=== PATIENT | female | born 1955 | race Caucasian/White ===

== ENCOUNTER → 2016-12-29 | Outpatient (CLI) | payer OTHER ==
[~2016-12-29] MED LIST: /BUDEAQINH; ASPI81TA PO; COMBIN INH; IRON PO; ZEST5TAB PO
--- NOTE | 2016-12-30 02:32 | REP ---
Clinical: Trauma. Technique: AP, lateral, bilateral oblique, and coned-down views of the lumbosacral spine. Findings: Alignment and lordosis maintained. No acute fracture / compression injury or subluxation. Moderate to advanced multilevel degenerative disc osteophyte complexes are most pronounced at the L5-S1 and L3-L4 levels. Findings include osteophytosis, endplate sclerosis/irregularity and disc space narrowing along with hypertrophic facet changes. No evidence for spondylolysis or spondylolisthesis. Impression: Degenerative discogenic changes. No evidence for acute fracture / compression injury or subluxation. Signed by Kelton Hanson MD 12/30/2016 02:24 A
--- NOTE | 2016-12-30 02:35 | REP ---
Clinical: Trauma. Technique: AP, lateral, bilateral oblique and sunrise views right knee . Findings: The osseous structures and joint spaces are intact and age-appropriate. There is no evidence for acute fracture or dislocation. No joint effusion is appreciated. Surrounding soft tissues are unremarkable. No subcutaneous emphysema or radiodense foreign body. Impression: Normal examination. No acute fracture or dislocation. Signed by Kelton Hanson MD 12/30/2016 02:26 A
--- NOTE | 2016-12-30 08:13 | REP ---
Clinical: Trauma. Technique: Neutral and frog lateral views of the right hip. Findings: Age-related degenerative changes include increased sclerosis to the acetabular roof with subtle marginal spurring/irregularity as well as axial joint space narrowing. No acute fracture or dislocation. No periarticular calcifications. Impression: Age-related degenerative changes. No acute fracture or dislocation. Signed by Kelton Hanson MD 12/30/2016 02:35 A
== END ==
LOC: M RAD 13:24
PROVIDERS: ATTEND Family Medicine
DX: S80.01XA Contusion of right knee, initial encounter (principal); S80.11XA Contusion of right lower leg, initial encounter; V40.6XXA Car passenger injured in collision with pedestrian or animal in traffic accident, initial encounter; Y92.89 Other specified places as the place of occurrence of the external cause; Y93.9 Activity, unspecified; Y99.9 Unspecified external cause status

== ENCOUNTER → 2017-01-10 | Outpatient (CLI) | payer OTHER ==
--- NOTE | 2017-01-10 17:58 | REP ---
Clinical: Contusion. Technique: AP, lateral, bilateral oblique views of the left third digit. Findings: Osteoarthritic degenerative changes are appreciated. Small acute corner fracture at the base of the distal phalanx cannot be excluded. 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 Possible small acute corner fracture at the base of the distal phalanx. Signed by Kelton Hanson MD 01/10/2017 05:49 P
== END ==
LOC: M ADAMS 17:25
PROVIDERS: ATTEND Physician Assistant
DX: S60.032A Contusion of left middle finger without damage to nail, initial encounter (principal); X58.XXXA Exposure to other specified factors, initial encounter; Y92.89 Other specified places as the place of occurrence of the external cause; Y99.9 Unspecified external cause status; Y93.9 Activity, unspecified

== ENCOUNTER → 2017-10-27 | Outpatient (CLI) | payer OTHER ==
[~2017-10-27] MED LIST changes: +ZITHTAB PO
--- NOTE | 2017-10-27 13:26 | REP ---
Clinical: Cough . Comparison: 09/21/2016 . Technique: PA and lateral. Findings: The mediastinum and cardiac silhouette are normal. The lung mendez are clear and without acute consolidation, effusion, or pneumothorax. The skeletal structures are intact and normal. Impression: 1. No acute cardiopulmonary process. Signed by Kelton Hanson MD 10/27/2017 01:18 P
== END ==
LOC: M ADAMS 12:59
PROVIDERS: ATTEND Family Medicine
DX: R05 Cough (principal)

== ENCOUNTER → 2017-10-27 | Outpatient (REF) | payer OTHER ==
[2017-10-27 19:47] LABS: BASO # 0.1 10^3/uL (0.0-0.2); BASO % 0.9 % (0.0-1.0); EOS # 0.2 10^3/uL (0.0-0.50); EOS % 2.1 % (0.0-3.0); IMMATURE GRANULOCYTE % 0.1 % (0-0); LYMPH % 26.6 % (24.0-44.0); MEAN CORPUSCULAR HEMOGLOBIN 29.3 pg (27.0-33.0); MEAN CORPUSCULAR HGB CONC 31.8 g/dl (32.0-36.5); MEAN CORPUSCULAR VOLUME 92.2 fl (80.0-96.0); MONO # 0.6 10^3/uL (0.0-0.8); MONO % 7.9 % (0.0-5.0); NEUTROPHILS # 4.7 10^3/uL (1.8-7.7); NEUTROPHILS % 62.4 % (36.0-66.0); PLATELET COUNT, AUTOMATED 292 10^3/uL (150-450); RED CELL DISTRIBUTION WIDTH 13.2 % (11.5-14.5); WHITE BLOOD COUNT 7.6 10^3/uL (4.0-10.0)
[2017-10-27 20:15] LABS: ALBUMIN 3.7 GM/DL (3.2-5.2); ALKALINE PHOSPHATASE 101 U/L (45-117); ALT/SGPT 24 U/L (12-78); ANION GAP 4 MEQ/L (8-16); AST/SGOT 15 U/L (7-37); BILIRUBIN,TOTAL 0.4 MG/DL (0.2-1.0); BLOOD UREA NITROGEN 22 MG/DL (7-18); CALCIUM LEVEL 8.6 MG/DL (8.8-10.2); CARBON DIOXIDE LEVEL 31 MEQ/L (21-32); CHLORIDE LEVEL 107 MEQ/L (98-107); CHOLESTEROL LEVEL 170 MG/DL (<200); CREATININE FOR GFR 0.87 MG/DL (0.55-1.02); FREE T4 0.75 NG/DL (0.76-1.46); GLOMERULAR FILTRATION RATE > 60.0 (>45); GLUCOSE, FASTING 85 MG/DL (80-110); POTASSIUM SERUM 4.7 MEQ/L (3.5-5.1); SODIUM LEVEL 142 MEQ/L (136-145); TOTAL PROTEIN 7.4 GM/DL (6.4-8.2); TRIGLYCERIDES LEVEL 91 MG/DL (<150)
== END ==
LOC: M SFHCADAM 12:14
PROVIDERS: ATTEND Family Medicine
DX: R19.7 Diarrhea, unspecified (principal); R05 Cough; E78.2 Mixed hyperlipidemia; E55.9 Vitamin D deficiency, unspecified

== ENCOUNTER 2017-10-29 11:56 | Emergency (ER) | payer OTHER ==
[~2017-10-29] VITALS: Ht 160 cm; Wt 87.4 kg
[~2017-10-29 11:56] MED LIST changes: -ZITHTAB PO
[2017-10-29] MEDS ORDERED: ONDANSETRON 4MG/2ML VIAL (J2405) IV ONE (12:45)
[2017-10-29 13:18] LABS: BASO # 0.1 10^3/uL (0.0-0.2); BASO % 0.7 % (0.0-1.0); EOS # 0.2 10^3/uL (0.0-0.50); EOS % 2.2 % (0.0-3.0); IMMATURE GRANULOCYTE % 0.3 % (0-0); LYMPH # 1.9 10^3/uL (1.5-4.5); LYMPH % 26.1 % (24.0-44.0); MEAN CORPUSCULAR HGB CONC 32.9 g/dl (32.0-36.5); MEAN CORPUSCULAR VOLUME 91.1 fl (80.0-96.0); MONO # 0.6 10^3/uL (0.0-0.8); MONO % 7.7 % (0.0-5.0); NEUTROPHILS # 4.7 10^3/uL (1.8-7.7); PLATELET COUNT, AUTOMATED 278 10^3/uL (150-450); RED CELL DISTRIBUTION WIDTH 13.2 % (11.5-14.5); WHITE BLOOD COUNT 7.4 10^3/uL (4.0-10.0)
--- NOTE | 2017-10-29 13:47 | REP ---
Chest two views HISTORY: Cough Comparison: 10/27/2017 The lungs are clear. The heart is normal in size. The pulmonary vasculature is normal in appearance. The bony structure is intact. IMPRESSION: No acute disease. Signed by Pedro Luis Benitez MD 10/29/2017 01:39 P
[2017-10-29 13:51] LABS: ALBUMIN 3.4 GM/DL (3.2-5.2); ALBUMIN/GLOBULIN RATIO 0.81 (1.00-1.93); ALKALINE PHOSPHATASE 99 U/L (45-117); ALT/SGPT 24 U/L (12-78); ANION GAP 6 MEQ/L (8-16); AST/SGOT 14 U/L (7-37); BILIRUBIN,DIRECT < 0.1 MG/DL (0.0-0.2); BILIRUBIN,TOTAL 0.3 MG/DL (0.2-1.0); BLOOD UREA NITROGEN 20 MG/DL (7-18); CALCIUM LEVEL 8.7 MG/DL (8.8-10.2); CARBON DIOXIDE LEVEL 27 MEQ/L (21-32); CHLORIDE LEVEL 109 MEQ/L (98-107); CREATININE FOR GFR 0.84 MG/DL (0.55-1.02); GLOMERULAR FILTRATION RATE > 60.0 (>45); GLUCOSE, FASTING 125 MG/DL (80-110); POTASSIUM SERUM 4.3 MEQ/L (3.5-5.1); SODIUM LEVEL 142 MEQ/L (136-145); TOTAL PROTEIN 7.6 GM/DL (6.4-8.2)
[2017-10-29] MEDS ORDERED: ZITHTAB PO (14:11)
[2017-10-29 14:21] VITALS: BP 116/75
== END 2017-10-29 14:23 | disposition home or self-care (01) ==
LOC: M ED 11:56
DX: J40 Bronchitis, not specified as acute or chronic (principal); I10 Essential (primary) hypertension; J45.909 Unspecified asthma, uncomplicated; F41.9 Anxiety disorder, unspecified; I25.10 Atherosclerotic heart disease of native coronary artery without angina pectoris; D64.9 Anemia, unspecified; I25.2 Old myocardial infarction; Z79.899 Other long term (current) drug therapy; Z79.82 Long term (current) use of aspirin
CPT/HCPCS: 71020; 80048; 80076; 81001; 83690; 85025; 87086; 87804; 96374; 99284; J2405

== ENCOUNTER → 2018-01-30 | Outpatient (REF) | payer OTHER ==
[2018-01-30 20:34] LABS: BASO # 0.1 10^3/uL (0.0-0.2); EOS # 0.2 10^3/uL (0.0-0.50); EOS % 2.3 % (0.0-3.0); HEMATOCRIT 41.1 % (36.0-47.0); HEMOGLOBIN 13.1 g/dl (12.0-16.0); IMMATURE GRANULOCYTE % 0.3 % (0-3.0); LYMPH # 2.2 10^3/uL (1.5-4.5); LYMPH % 29.8 % (24.0-44.0); MEAN CORPUSCULAR HEMOGLOBIN 29.7 pg (27.0-33.0); MEAN CORPUSCULAR HGB CONC 31.9 g/dl (32.0-36.5); MEAN CORPUSCULAR VOLUME 93.2 fl (80.0-96.0); MONO # 0.6 10^3/uL (0.0-0.8); MONO % 7.8 % (0.0-5.0); NEUTROPHILS # 4.3 10^3/uL (1.8-7.7); NEUTROPHILS % 58.8 % (36.0-66.0); PLATELET COUNT, AUTOMATED 260 10^3/uL (150-450); RED BLOOD COUNT 4.41 10^6/uL (4.00-5.40); RED CELL DISTRIBUTION WIDTH 13.6 % (11.5-14.5); WHITE BLOOD COUNT 7.3 10^3/uL (4.0-10.0)
[2018-01-30 21:00] LABS: ALBUMIN 3.8 GM/DL (3.2-5.2); ALBUMIN/GLOBULIN RATIO 1.06 (1.00-1.93); ALKALINE PHOSPHATASE 96 U/L (45-117); ALT/SGPT 22 U/L (12-78); ANION GAP 5 MEQ/L (8-16); AST/SGOT 15 U/L (7-37); BILIRUBIN,TOTAL 0.2 MG/DL (0.2-1.0); BLOOD UREA NITROGEN 25 MG/DL (7-18); CALCIUM LEVEL 8.7 MG/DL (8.8-10.2); CARBON DIOXIDE LEVEL 31 MEQ/L (21-32); CHLORIDE LEVEL 108 MEQ/L (98-107); CREATININE FOR GFR 0.94 MG/DL (0.55-1.30); GLOMERULAR FILTRATION RATE > 60.0 (>45); GLUCOSE, FASTING 106 MG/DL (70-100); POTASSIUM SERUM 4.1 MEQ/L (3.5-5.1); SODIUM LEVEL 144 MEQ/L (136-145); TOTAL PROTEIN 7.4 GM/DL (6.4-8.2)
== END ==
LOC: M LABDRWAD 12:38
DX: R19.7 Diarrhea, unspecified (principal)

== ENCOUNTER → 2018-02-08 | Outpatient (REF) | payer OTHER | LOC: M LAB REF 14:43 | DX: R19.7 Diarrhea, unspecified (principal) | CPT/HCPCS: 87507 ==

== ENCOUNTER 2018-06-09 21:17 | Emergency (ER) | payer OTHER ==
[2018-06-10] MEDS: CEPHALEXIN 500 MG CAP PO (00:04)
[2018-06-10] MEDS: ADACEL/BOOSTRIX VACCINE (DIPHTH/PERTUSS/ACELL/TETANUS)0.5ML SYR (90715) IM (00:05)
[2018-06-10] MEDS: NORCO 5/325MG TABLET (BULK FOR ED) PO (00:05)
== END 2018-06-10 00:08 | disposition home or self-care (01) ==
LOC: M ED 06-10 00:08
DX: L23.9 Allergic contact dermatitis, unspecified cause (principal); S50.811A Abrasion of right forearm, initial encounter; S76.902A Unspecified injury of unspecified muscles, fascia and tendons at thigh level, left thigh, initial encounter; W45.0XXA Nail entering through skin, initial encounter; Y92.89 Other specified places as the place of occurrence of the external cause; I10 Essential (primary) hypertension; I25.2 Old myocardial infarction; J44.9 Chronic obstructive pulmonary disease, unspecified; Z86.73 Personal history of transient ischemic attack (TIA), and cerebral infarction without residual deficits; Z79.899 Other long term (current) drug therapy; Z79.82 Long term (current) use of aspirin; Z87.891 Personal history of nicotine dependence
CPT/HCPCS: 90715

== ENCOUNTER 2018-06-20 19:58 | Emergency (ER) | payer OTHER ==
[2018-06-20] MEDS: BACTRIM 160MG/800MG DS TAB PO (21:50)
== END 2018-06-20 22:27 | disposition home or self-care (01) ==
LOC: M ED 19:58
DX: S39.013A Strain of muscle, fascia and tendon of pelvis, initial encounter (principal); V89.9XXA Person injured in unspecified vehicle accident, initial encounter; Y92.410 Unspecified street and highway as the place of occurrence of the external cause; L30.9 Dermatitis, unspecified; I10 Essential (primary) hypertension; I25.2 Old myocardial infarction; J45.909 Unspecified asthma, uncomplicated; J44.9 Chronic obstructive pulmonary disease, unspecified; D64.9 Anemia, unspecified; F41.9 Anxiety disorder, unspecified; M81.0 Age-related osteoporosis without current pathological fracture; Z79.82 Long term (current) use of aspirin; Z79.899 Other long term (current) drug therapy
CPT/HCPCS: 72190

== ENCOUNTER 2018-06-29 19:47 | Emergency (ER) | payer OTHER ==
[2018-06-29 22:00] LABS: KETONE, URINE AUTO RFX NEGATIVE (NEGATIVE); LEUKOCYTE ESTERASE UR AUTO RFX NEGATIVE (NEGATIVE); MUCUS, URINE RFX SMALL (NEGATIVE); NITRITE, URINE AUTO RFX NEGATIVE (NEGATIVE); RBC, URINE AUTO RFX 6 /HPF (0-3); SPECIFIC GRAVITY UR AUTO RFX 1.025 (1.002-1.035); SQUAM EPITHELIAL CELL UR AURFX 0 /HPF (0-6); WBC, URINE AUTO RFX 2 /HPF (0-3)
[2018-06-29] MEDS: PERCOCET 5MG/325MG TAB PO (22:14)
[2018-06-29 22:20] LABS: BASO # 0.1 10^3/uL (0.0-0.2); BASO % 0.5 % (0.0-1.0); EOS # 0.2 10^3/uL (0.0-0.50); HEMATOCRIT 38.5 % (36.0-47.0); HEMOGLOBIN 12.3 g/dl (12.0-15.5); IMMATURE GRANULOCYTE % 0.3 % (0-3.0); LYMPH # 2.6 10^3/uL (1.5-4.5); LYMPH % 26.5 % (24.0-44.0); MEAN CORPUSCULAR HEMOGLOBIN 30.1 pg (27.0-33.0); MEAN CORPUSCULAR HGB CONC 31.9 g/dl (32.0-36.5); MEAN CORPUSCULAR VOLUME 94.4 fl (80.0-96.0); MONO # 0.8 10^3/uL (0.0-0.8); MONO % 8.5 % (0.0-5.0); NEUTROPHILS # 6.1 10^3/uL (1.8-7.7); NEUTROPHILS % 62.2 % (36.0-66.0); PLATELET COUNT, AUTOMATED 245 10^3/uL (150-450); RED BLOOD COUNT 4.08 10^6/uL (4.00-5.40); RED CELL DISTRIBUTION WIDTH 13.7 % (11.5-14.5); WHITE BLOOD COUNT 9.9 10^3/uL (4.0-10.0)
[2018-06-29 22:51] LABS: ALBUMIN 3.2 GM/DL (3.2-5.2); ALBUMIN/GLOBULIN RATIO 0.86 (1.00-1.93); ALKALINE PHOSPHATASE 85 U/L (45-117); ALT/SGPT 33 U/L (12-78); ANION GAP 4 MEQ/L (8-16); AST/SGOT 14 U/L (7-37); BILIRUBIN,DIRECT < 0.1 MG/DL (0.0-0.2); BILIRUBIN,TOTAL 0.3 MG/DL (0.2-1.0); BLOOD UREA NITROGEN 20 MG/DL (7-18); CALCIUM LEVEL 8.6 MG/DL (8.8-10.2); CARBON DIOXIDE LEVEL 33 MEQ/L (21-32); CHLORIDE LEVEL 106 MEQ/L (98-107); CREATININE FOR GFR 0.96 MG/DL (0.55-1.30); GLOMERULAR FILTRATION RATE > 60.0 (>45); GLUCOSE, FASTING 101 MG/DL (70-100); POTASSIUM SERUM 4.6 MEQ/L (3.5-5.1); SODIUM LEVEL 143 MEQ/L (136-145); TOTAL PROTEIN 6.9 GM/DL (6.4-8.2)
[2018-06-29] MEDS ORDERED: NORCO 5/325MG TABLET (BULK FOR ED) PO (23:45)
[2018-06-29] MEDS: CIPROFLOXACIN 500 MG TAB PO (23:48)
[2018-06-29] MEDS: metroNIDAZOLE (FLAGYL) 500 MG TAB PO (23:48)
[2018-06-29] MEDS: NORCO 5/325MG TABLET (BULK FOR ED) PO (23:50)
== END 2018-06-29 23:59 | disposition home or self-care (01) ==
LOC: M ED 19:47
DX: M54.32 Sciatica, left side (principal); K57.32 Diverticulitis of large intestine without perforation or abscess without bleeding; K76.89 Other specified diseases of liver; K80.50 Calculus of bile duct without cholangitis or cholecystitis without obstruction; M51.36 Other intervertebral disc degeneration, lumbar region; M51.37 Other intervertebral disc degeneration, lumbosacral region; I25.2 Old myocardial infarction; I10 Essential (primary) hypertension; J44.9 Chronic obstructive pulmonary disease, unspecified; D64.9 Anemia, unspecified; M81.0 Age-related osteoporosis without current pathological fracture; F41.9 Anxiety disorder, unspecified; Z87.891 Personal history of nicotine dependence; Z79.82 Long term (current) use of aspirin; Z79.899 Other long term (current) drug therapy
CPT/HCPCS: 74176

== ENCOUNTER → 2018-10-24 | Outpatient (REF) | payer MEDICARE, OTHER, MEDICAID ==
[2018-10-24 19:37] LABS: HEMATOCRIT 41.5 % (36.0-47.0); HEMOGLOBIN 12.9 g/dl (12.0-15.5); MEAN CORPUSCULAR HEMOGLOBIN 29.9 pg (27.0-33.0); MEAN CORPUSCULAR HGB CONC 31.1 g/dl (32.0-36.5); MEAN CORPUSCULAR VOLUME 96.3 fl (80.0-96.0); PLATELET COUNT, AUTOMATED 301 10^3/uL (150-450); RED BLOOD COUNT 4.31 10^6/uL (4.00-5.40); RED CELL DISTRIBUTION WIDTH 13.5 % (11.5-14.5); WHITE BLOOD COUNT 7.6 10^3/uL (4.0-10.0)
[2018-10-24 20:16] LABS: ALBUMIN 3.4 GM/DL (3.2-5.2); ALBUMIN/GLOBULIN RATIO 1.03 (1.00-1.93); ALKALINE PHOSPHATASE 94 U/L (45-117); ALT/SGPT 24 U/L (12-78); ANION GAP 4 MEQ/L (8-16); AST/SGOT 17 U/L (7-37); BILIRUBIN,TOTAL 0.4 MG/DL (0.2-1.0); BLOOD UREA NITROGEN 19 MG/DL (7-18); CALCIUM LEVEL 8.6 MG/DL (8.8-10.2); CARBON DIOXIDE LEVEL 31 MEQ/L (21-32); CHLORIDE LEVEL 107 MEQ/L (98-107); CHOLESTEROL LEVEL 151 MG/DL (<200); CHOLESTEROL RISK RATIO 2.253 (<5); CREATININE FOR GFR 0.91 MG/DL (0.55-1.30); FREE T4 0.88 NG/DL (0.76-1.46); GLOMERULAR FILTRATION RATE > 60.0 (>45); GLUCOSE, FASTING 89 MG/DL (70-100); HDL CHOLESTEROL 67 MG/DL (>40); LDL CHOLESTEROL 74 MG/DL (<100); NON-HDL-C 84 MG/DL; POTASSIUM SERUM 4.2 MEQ/L (3.5-5.1); SODIUM LEVEL 142 MEQ/L (136-145); TOTAL PROTEIN 6.7 GM/DL (6.4-8.2); TRIGLYCERIDES LEVEL 48 MG/DL (<150)
[2018-10-24 20:19] LABS: TOTAL 25(OH) VITAMIN D 27.5 NG/ML (30.0-100.0)
== END ==
LOC: M SFHCADAM 11:04
DX: E78.2 Mixed hyperlipidemia (principal); I63.50 Cerebral infarction due to unspecified occlusion or stenosis of unspecified cerebral artery; E55.9 Vitamin D deficiency, unspecified
CPT/HCPCS: 84443

== ENCOUNTER 2018-10-27 14:01 | Emergency (ER) | payer MEDICARE, MEDICAID, OTHER ==
[2018-10-27 15:11] LABS: INFLUENZA A AMPLIFICATION NEGATIVE (NEGATIVE); INFLUENZA B AMPLIFICATION NEGATIVE (NEGATIVE)
== END 2018-10-27 15:29 | disposition home or self-care (01) ==
LOC: M ED 14:01
DX: J06.9 Acute upper respiratory infection, unspecified (principal); I10 Essential (primary) hypertension; J44.9 Chronic obstructive pulmonary disease, unspecified; J45.909 Unspecified asthma, uncomplicated; I25.2 Old myocardial infarction; D64.9 Anemia, unspecified; M81.0 Age-related osteoporosis without current pathological fracture; F41.9 Anxiety disorder, unspecified; Z79.82 Long term (current) use of aspirin; Z87.891 Personal history of nicotine dependence
CPT/HCPCS: 71046

== ENCOUNTER → 2019-01-20 | Outpatient (REF) | payer MEDICARE, MEDICAID ==
[~2019-01-20] MED LIST changes: -/BUDEAQINH; -ASPI81TA PO; +BACT800T5 PO; +CEPH500C; +CETI10TA; +CHIL1CHW5 PO; +CIPR-249 PO; +FLAG500T PO; +FLUTISP; +HYDR-3715 PO; +IBUP80TA PO; +KEFL500C17 PO; +PRED10TA2 PO; +RHIN3SUS; +ROBA500T PO; +TAB-TAB; +VENTAER INH; +ZITHTAB PO
[2019-01-20 18:21] LABS: CHLAMYDIA DNA AMPLIFICATION NEGATIVE (NEGATIVE); GC DNA AMPLIFICATION NEGATIVE (NEGATIVE)
== END ==
LOC: M LAB REF 11:50
PROVIDERS: ATTEND Physician Assistant Medical
DX: N76.0 Acute vaginitis (principal); R30.0 Dysuria

== ENCOUNTER 2019-09-08 15:57 | Emergency (ER) | payer MEDICAID, MEDICARE, OTHER ==
[~2019-09-08] VITALS: Ht 165.1 cm; Wt 86.8 kg
[2019-09-08] MEDS ORDERED: CICL0.7739 (16:45)
[2019-09-08] MEDS ORDERED: ADACEL/BOOSTRIX VACCINE (DIPHTH/PERTUSS/ACELL/TETANUS)0.5ML SYR (90715) IM ONE (17:15)
[2019-09-08 18:15] VITALS: BP 139/91
--- NOTE | 2019-09-09 08:31 | REP ---
REASON: Pain after trauma. COMPARISON: No priors. FINDINGS: No acute fracture or destructive osseous lesion. The mortise is intact. Electronically Signed by Arturo Martin DO 09/09/2019 09:00 A
== END 2019-09-08 18:31 | disposition home or self-care (01) ==
LOC: M ED 15:57
DX: S93.402A Sprain of unspecified ligament of left ankle, initial encounter (principal); W22.8XXA Striking against or struck by other objects, initial encounter; Y92.9 Unspecified place or not applicable; J44.9 Chronic obstructive pulmonary disease, unspecified; I10 Essential (primary) hypertension; Z91.010 Allergy to peanuts; Z79.82 Long term (current) use of aspirin; Z79.899 Other long term (current) drug therapy

== ENCOUNTER → 2019-09-13 | Outpatient (CLI) | payer MEDICARE, MEDICAID ==
[~2019-09-13] MED LIST changes: +CICL0.7739
--- NOTE | 2019-09-13 17:37 | REPMRS ---
Patient History The patient states she has not had a clinical breast exam in over a year. No known family history of cancer. Digital Mammo Screening Bilat: September 13, 2019 - Exam #: [id number] Bilateral CC and MLO view(s) were taken. Technologist: Renetta Young, Technologist Prior study comparison: January 27, 2016, digital woman screen mammo, performed at [facility]. FINDINGS: There are scattered fibroglandular densities. There has been no change in the appearance of the mammogram from the prior studies. There is a mild amount of scattered fibroglandular density which is fairly symmetric. There is no interval development of dominant mass, architectural distortion, or grouped microcalcification suggestive of malignancy. 3-D tomosynthesis shows no additional findings. Assessment: BI-RADS/ACR category 1 mammogram. Negative Mammogram. Recommendation Routine screening mammogram of both breasts in 1 year (for women over age 40). This patient's Lifetime Breast Cancer Risk is estimated at 5.3 %. This mammogram was interpreted with the aid of an FDA-approved computer-aided dectection system. Electronically Signed By: Buzz Nelson MD 09/13/19 2216
== END ==
LOC: M RAD 13:43
PROVIDERS: ATTEND Family Medicine
DX: Z12.31 Encounter for screening mammogram for malignant neoplasm of breast (principal)

== ENCOUNTER → 2019-09-24 | Outpatient (REF) | payer MEDICARE, OTHER ==
[2019-09-24 12:47] LABS: HEMATOCRIT 40.5 % (36.0-47.0); HEMOGLOBIN 12.8 g/dl (12.0-15.5); MEAN CORPUSCULAR HEMOGLOBIN 30.3 pg (27.0-33.0); MEAN CORPUSCULAR HGB CONC 31.6 g/dl (32.0-36.5); MEAN CORPUSCULAR VOLUME 95.7 fl (80.0-96.0); PLATELET COUNT, AUTOMATED 235 10^3/uL (150-450); RED BLOOD COUNT 4.23 10^6/uL (4.00-5.40); WHITE BLOOD COUNT 5.9 10^3/uL (4.0-10.0)
[2019-09-24 13:23] LABS: BLOOD UREA NITROGEN 19 MG/DL (7-18); CALCIUM LEVEL 8.9 MG/DL (8.8-10.2); CARBON DIOXIDE LEVEL 31 MEQ/L (21-32); CHLORIDE LEVEL 106 MEQ/L (98-107); CREATININE FOR GFR 0.93 MG/DL (0.55-1.30); GLOMERULAR FILTRATION RATE > 60.0 (>45); GLUCOSE, FASTING 83 MG/DL (70-100); POTASSIUM SERUM 4.2 MEQ/L (3.5-5.1); SODIUM LEVEL 143 MEQ/L (136-145)
[2019-09-24 13:24] LABS: ALBUMIN 3.5 GM/DL (3.2-5.2); ALT/SGPT 25 U/L (12-78); BILIRUBIN,TOTAL 0.5 MG/DL (0.2-1.0); CHOLESTEROL LEVEL 141 MG/DL (<200); CHOLESTEROL RISK RATIO 2.104 (<5); HDL CHOLESTEROL 67 MG/DL (>40); LDL CHOLESTEROL 57 MG/DL (<100); NON-HDL-C 74 MG/DL; TOTAL PROTEIN 6.6 GM/DL (6.4-8.2); TRIGLYCERIDES LEVEL 84 MG/DL (<150)
== END ==
LOC: M SFHCADAM 11:24
PROVIDERS: ATTEND Family Medicine
DX: I63.50 Cerebral infarction due to unspecified occlusion or stenosis of unspecified cerebral artery (principal); I10 Essential (primary) hypertension; E78.2 Mixed hyperlipidemia

== ENCOUNTER 2019-10-02 13:11 | Emergency (ER) | payer MEDICARE, MEDICAID ==
[~2019-10-02] VITALS: Ht 165.1 cm; Wt 84.5 kg
[2019-10-02 14:17] LABS: BASO # 0.1 10^3/uL (0.0-0.2); BASO % 0.8 % (0.0-1.0); EOS # 0.3 10^3/uL (0.0-0.5); EOS % 2.9 % (0.0-3.0); HEMATOCRIT 41.2 % (36.0-47.0); LYMPH % 22.8 % (24.0-44.0); MEAN CORPUSCULAR HEMOGLOBIN 30.2 pg (27.0-33.0); MEAN CORPUSCULAR HGB CONC 31.6 g/dl (32.0-36.5); MEAN CORPUSCULAR VOLUME 95.6 fl (80.0-96.0); MONO # 0.6 10^3/uL (0.0-0.8); MONO % 6.8 % (0.0-5.0); NEUTROPHILS # 5.7 10^3/uL (1.5-8.5); NEUTROPHILS % 66.2 % (36.0-66.0); PLATELET COUNT, AUTOMATED 254 10^3/uL (150-450); RED BLOOD COUNT 4.31 10^6/uL (4.00-5.40); WHITE BLOOD COUNT 8.7 10^3/uL (4.0-10.0)
[2019-10-02 14:36] LABS: ALBUMIN 3.4 GM/DL (3.2-5.2); ALT/SGPT 24 U/L (12-78); BILIRUBIN,DIRECT < 0.1 MG/DL (0.0-0.2); BILIRUBIN,TOTAL 0.2 MG/DL (0.2-1.0); BLOOD UREA NITROGEN 21 MG/DL (7-18); CALCIUM LEVEL 8.7 MG/DL (8.8-10.2); CARBON DIOXIDE LEVEL 28 MEQ/L (21-32); CHLORIDE LEVEL 113 MEQ/L (98-107); CREATININE FOR GFR 0.87 MG/DL (0.55-1.30); GLOMERULAR FILTRATION RATE > 60.0 (>45); GLUCOSE, FASTING 84 MG/DL (70-100); LIPASE 133 U/L (73-393); POTASSIUM SERUM 4.1 MEQ/L (3.5-5.1); SODIUM LEVEL 145 MEQ/L (136-145); TOTAL PROTEIN 7.1 GM/DL (6.4-8.2)
[2019-10-02] MEDS ORDERED: NS 1,000 ML IV ONE (15:30)
[2019-10-02] MEDS ORDERED: ISOVUE-370 76% 100ML VIAL (Q9967) As Ordered ONE (15:52)
--- NOTE | 2019-10-02 16:39 | REP ---
CT abdomen and pelvis with IV but without oral contrast: History: Chronic diarrhea and weight loss. Diffuse abdominal pain. Comparison CT study is from June 29, 2018. There is also a prior CT study from March 31, 2006. CT contrast dose: 100 ml of intravenous Isovue 370. CT findings: Digital preliminary aprn radiograph is unremarkable. The lung bases are clear. There is a stable 1.1 cm cyst in the right lobe of the liver. No focal liver lesion is appreciated. There is a tiny also stable smaller cyst inferiorly in the right lobe. There is an opaque gallstone in the small contracted gallbladder. No adrenal lesion is seen. The pancreas is unremarkable. There is calcification along the lateral capsule of the spleen which it is unchanged from the July 17, 2018 study. No focal splenic lesion is seen. No retroperitoneal mass or adenopathy is seen. The kidneys enhance symmetrically and are morphologically intact. No hydronephrosis is seen. There is mural thickening involving the distal most ileum. Mural thickening in the distal ileum is visible in retrospect with some intra mural fat on prior studies in 2005 and 2017. This may reflect old inflammatory bowel disease. Air and fluid are seen throughout proximal small bowel loops without evidence of obstruction. There is sigmoid colon diverticulosis without CT evidence of diverticulitis. There is no evidence of mass adenopathy or abnormal fluid collection. No uterine or ovarian abnormality is seen in the pelvis. Urinary bladder is unremarkable. No abdominal wall defect is seen. No bony destructive lesion is appreciated. Impression: 1. Cholelithiasis. 2. Left colonic diverticulosis extensive but without evidence of diverticulitis. 3. Mural thickening and some submucosal fat deposition in the distal ileum question old inflammatory bowel disease. No obstructive lesion. Normal appendix seen. Electronically Signed by Almas Nelson MD 10/02/2019 07:51 P
--- NOTE | 2019-10-02 18:42 | REPVR ---
PROCEDURE INFORMATION: Exam: US Abdomen Limited, Right Upper Quadrant Exam date and time: 10/02/2019 5:42 PM Clinical history: 64 years old, female; Abdominal pain; Additional info: Gallstones seen on CT, look at cbd TECHNIQUE: Imaging protocol: Real-time ultrasound of the abdomen with image documentation. Examination was focused on the right upper quadrant. COMPARISON: CT ABD/PEL W/IV CONTRAST ONLY 10/02/2019 3:55 PM FINDINGS: Liver: There is a small 1 CM by 7 mm cyst of the right lobe of the liver. Gallbladder: The gallbladder is partially contracted and there are approximately 5 gallstones ranging in size from 5 mm to 1 CM. Common bile duct: The common bile duct is normal in size measuring 3 mm. Right kidney: The right kidney measures 10.9 CM with no evidence of hydronephrosis. Tiny cyst upper pole right kidney. IMPRESSION: 1. 5 calcified gallstones within the partially contracted gallbladder. 2. Common bile duct is normal in size measuring 3 mm. Electronically signed by: Albert Lackey On 10/02/2019 18:41:36 PM
[2019-10-02 19:02] VITALS: BP 161/82
== END 2019-10-02 19:05 | disposition home or self-care (01) ==
LOC: M ED 13:11
DX: K80.20 Calculus of gallbladder without cholecystitis without obstruction (principal); J44.9 Chronic obstructive pulmonary disease, unspecified; J45.909 Unspecified asthma, uncomplicated; I10 Essential (primary) hypertension; I25.2 Old myocardial infarction; M81.0 Age-related osteoporosis without current pathological fracture; Z79.899 Other long term (current) drug therapy; Z79.82 Long term (current) use of aspirin; Z91.018 Allergy to other foods; Z87.891 Personal history of nicotine dependence
CPT/HCPCS: 74177; 76705; 80048; 80076; 81001; 83690; 85025; 96360; 96361; 99284; Q9967

== ENCOUNTER 2019-12-20 19:20 | Emergency (ER) | payer MEDICARE, MEDICAID ==
[~2019-12-20] VITALS: Ht 165.1 cm; Wt 81.8 kg
[~2019-12-20 19:20] MED LIST changes: -CETI10TA; +CETI10TA PO; -CICL0.7739; +CICL0.7739 TOP; -FLUTISP; +FLUTISP NARES; -TAB-TAB; +TAB-TAB PO
[2019-12-20] MEDS ORDERED: LIDOCAINE 5% (LIDODERM) PATCH TD ONE (22:15)
[2019-12-20] MEDS ORDERED: KETOROLAC 60 MG/2 ML VIAL (J1885) IM ONE (22:15)
[2019-12-20] MEDS ORDERED: methocarbamoL 750 MG TAB PO ONE (22:15)
--- NOTE | 2019-12-20 23:00 | REPVR ---
PROCEDURE INFORMATION: Exam: CT Head Without Contrast Exam date and time: 12/20/2019 10:20 PM Age: 64 years old Clinical indication: Injury or trauma; Fall; Initial encounter; Blunt trauma (contusions or hematomas); Additional info: Fall, PT tender TECHNIQUE: Imaging protocol: Computed tomography of the head without contrast. Radiation optimization: All CT scans at this facility use at least one of these dose optimization techniques: automated exposure control; mA and/or kV adjustment per patient size (includes targeted exams where dose is matched to clinical indication); or iterative reconstruction. COMPARISON: CT Head without contrast 02/26/2013 7:23 PM FINDINGS: Brain: No acute intracranial hemorrhage, midline shift or mass effect. No cerebral edema. Ventricles: No hydrocephalus. Bones/joints: Unremarkable. No acute fracture. Sinuses: Visualized sinuses are unremarkable. No fluid levels. Mastoid air cells: Visualized mastoid air cells are well aerated. Soft tissues: Unremarkable. IMPRESSION: No acute intracranial abnormality. Electronically signed by: Josh Galeana On 12/20/2019 23:00:05 PM
--- NOTE | 2019-12-20 23:02 | REPVR ---
PROCEDURE INFORMATION: Exam: CT Lumbar Spine Without Contrast Exam date and time: 12/20/2019 10:20 PM Age: 64 years old Clinical indication: Injury or trauma; Fall; Initial encounter; Blunt trauma (contusions or hematomas); Additional info: Fall, PT tender TECHNIQUE: Imaging protocol: Computed tomography images of the lumbar spine without contrast. Radiation optimization: All CT scans at this facility use at least one of these dose optimization techniques: automated exposure control; mA and/or kV adjustment per patient size (includes targeted exams where dose is matched to clinical indication); or iterative reconstruction. COMPARISON: CR Spine. Lumbosacral, complete 12/29/2016 1:54 PM FINDINGS: Vertebrae: Vertebral body height and AP alignment is preserved. Mild to moderate prevertebral osteophytosis. There are bilateral facet joint degenerative changes. Minimally displaced fracture involving the right L3 transverse process. Discs/Spinal canal/Neural foramina: Suspect mild central canal stenosis at L4-L5. Gallbladder and bile ducts: Cholelithiasis. Vasculature: Vascular calcification. Soft tissues: See Vertebrae Finding. IMPRESSION: Minimally displaced fracture involving the right L3 transverse process. Electronically signed by: Josh Galeana On 12/20/2019 23:02:12 PM
[2019-12-20] MEDS ORDERED: NAPR-837 PO (23:31)
[2019-12-20] MEDS ORDERED: ROBA750T4 PO (23:31)
[2019-12-20] MEDS ORDERED: LIDO5DIS41 TD (23:31)
[2019-12-20 23:37] VITALS: BP 120/81
[2019-12-21] MEDS ORDERED: **NOTE PATIENT COMMENT** MISC XX SCH (21:00)
== END 2019-12-20 23:41 | disposition home or self-care (01) ==
LOC: M ED 19:20
DX: S32.038A Other fracture of third lumbar vertebra, initial encounter for closed fracture (principal); W00.0XXA Fall on same level due to ice and snow, initial encounter; Y92.018 Other place in single-family (private) house as the place of occurrence of the external cause; J44.9 Chronic obstructive pulmonary disease, unspecified; I25.2 Old myocardial infarction; Z79.899 Other long term (current) drug therapy; Z91.010 Allergy to peanuts; Z87.891 Personal history of nicotine dependence
CPT/HCPCS: 70450; 72131; 96372; 99283; J1885

== ENCOUNTER 2020-01-17 12:34 | Emergency (ER) | payer MEDICARE, MEDICAID ==
[~2020-01-17] VITALS: Ht 165.1 cm; Wt 93.5 kg
[~2020-01-17 12:34] MED LIST changes: +LIDO5DIS41 TD; +NAPR-837 PO; +ROBA750T4 PO
[2020-01-17] MEDS ORDERED: ASPI81TA85 PO (12:46)
[2020-01-17 16:17] LABS: BASO # 0.1 10^3/uL (0.0-0.2); BASO % 0.7 % (0.0-1.0); EOS # 0.1 10^3/uL (0.0-0.5); EOS % 1.8 % (0.0-3.0); HEMATOCRIT 41.5 % (36.0-47.0); LYMPH # 2.1 10^3/uL (1.5-5.0); LYMPH % 27.5 % (24.0-44.0); MEAN CORPUSCULAR HEMOGLOBIN 29.2 pg (27.0-33.0); MEAN CORPUSCULAR HGB CONC 31.3 g/dl (32.0-36.5); MEAN CORPUSCULAR VOLUME 93.3 fl (80.0-96.0); MONO # 0.5 10^3/uL (0.0-0.8); MONO % 7.1 % (0.0-5.0); NEUTROPHILS # 4.8 10^3/uL (1.5-8.5); NEUTROPHILS % 62.6 % (36.0-66.0); PLATELET COUNT, AUTOMATED 232 10^3/uL (150-450); RED BLOOD COUNT 4.45 10^6/uL (4.00-5.40); WHITE BLOOD COUNT 7.6 10^3/uL (4.0-10.0)
--- NOTE | 2020-01-17 16:20 | REP ---
Clinical: Edema. Comparison: 10/27/2018 . Technique: PA and lateral. Findings: The mediastinum and cardiac silhouette are normal. The lung mendez are clear and without acute consolidation, effusion, or pneumothorax. The skeletal structures are intact and normal. Impression: 1. No acute cardiopulmonary process. Electronically Signed by Kelton Hanson MD 01/17/2020 04:11 P
[2020-01-17 16:29] LABS: INR 1.03; PROTHROMBIN TIME 13.2 SECONDS (11.8-14.0)
[2020-01-17 16:53] LABS: ALBUMIN 3.7 GM/DL (3.2-5.2); ALT/SGPT 45 U/L (12-78); BILIRUBIN,DIRECT 0.1 MG/DL (0.0-0.2); BILIRUBIN,TOTAL 0.3 MG/DL (0.2-1.0); BLOOD UREA NITROGEN 22 MG/DL (7-18); CALCIUM LEVEL 8.6 MG/DL (8.8-10.2); CARBON DIOXIDE LEVEL 30 MEQ/L (21-32); CHLORIDE LEVEL 109 MEQ/L (98-107); CREATININE FOR GFR 0.89 MG/DL (0.55-1.30); GLOMERULAR FILTRATION RATE > 60.0 (>45); GLUCOSE, FASTING 92 MG/DL (70-100); NT-PRO BNP 51 PG/ML (<125); POTASSIUM SERUM 3.9 MEQ/L (3.5-5.1); SODIUM LEVEL 142 MEQ/L (136-145); TOTAL PROTEIN 6.9 GM/DL (6.4-8.2)
--- NOTE | 2020-01-17 18:13 | REPVR ---
PROCEDURE INFORMATION: Exam: US Duplex Lower Extremity Veins Exam date and time: 01/17/2020 5:31 PM Age: 64 years old Clinical indication: Swelling (edema) of limb; Lower extremity, bilateral; Additional info: Bilateral leg swelling, R/O dvt TECHNIQUE: Imaging protocol: Real-time duplex ultrasound of the Lower Extremities with 2-D bergeron scale, color Doppler flow and spectral waveform analysis with image documentation. Complete exam focused on the bilateral lower extremity veins. COMPARISON: No relevant prior studies available. FINDINGS: Right deep veins: Unremarkable. The common femoral, femoral and popliteal veins are patent without thrombus. Normal Doppler waveforms. Normal compressibility and/or augmentation response. Right superficial veins: Saphenofemoral junction is patent without thrombus. Left deep veins: Unremarkable. The common femoral, femoral and popliteal veins are patent without thrombus. Normal Doppler waveforms. Normal compressibility and/or augmentation response. Left superficial veins: Saphenofemoral junction is patent without thrombus. Soft tissues: 2.7 x 0.9 x 1.1 cm right popliteal cyst. IMPRESSION: 1. No sonographic evidence of deep vein thrombosis. 2. 2.7 x 0.9 x 1.1 cm right popliteal cyst. Electronically signed by: Lobo Johns On 01/17/2020 18:12:31 PM
[2020-01-17 18:35] VITALS: BP 120/78
--- NOTE | 2020-01-17 18:57 | ECGEPIP ---
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
== END 2020-01-17 18:36 | disposition home or self-care (01) ==
LOC: M ED 12:34
DX: R22.43 Localized swelling, mass and lump, lower limb, bilateral (principal); J45.909 Unspecified asthma, uncomplicated; I10 Essential (primary) hypertension; Z79.899 Other long term (current) drug therapy; Z79.82 Long term (current) use of aspirin; Z91.010 Allergy to peanuts

== ENCOUNTER 2020-03-24 12:37 | Emergency (ER) | payer MEDICARE, MEDICAID ==
[~2020-03-24] VITALS: Ht 165.1 cm; Wt 91.8 kg
[~2020-03-24 12:37] MED LIST changes: +ASPI81TA85 PO
[2020-03-24] MEDS ORDERED: PANTOPRAZOLE 40MG VIAL (C9113 PER 1) IV ONE (13:30)
[2020-03-24] MEDS ORDERED: NS 1,000 ML IV ONE (13:30)
[2020-03-24 13:51] LABS: BASO # 0.1 10^3/uL (0.0-0.2); BASO % 0.8 % (0.0-1.0); EOS # 0.1 10^3/uL (0.0-0.5); EOS % 1.6 % (0.0-3.0); HEMATOCRIT 40.5 % (36.0-47.0); HEMOGLOBIN 12.9 g/dl (12.0-15.5); LYMPH # 1.9 10^3/uL (1.5-5.0); LYMPH % 24.2 % (24.0-44.0); MEAN CORPUSCULAR HEMOGLOBIN 29.4 pg (27.0-33.0); MEAN CORPUSCULAR HGB CONC 31.9 g/dl (32.0-36.5); MEAN CORPUSCULAR VOLUME 92.3 fl (80.0-96.0); MONO # 0.5 10^3/uL (0.0-0.8); NEUTROPHILS # 5.1 10^3/uL (1.5-8.5); NEUTROPHILS % 65.9 % (36.0-66.0); PLATELET COUNT, AUTOMATED 261 10^3/uL (150-450); RED BLOOD COUNT 4.39 10^6/uL (4.00-5.40); WHITE BLOOD COUNT 7.7 10^3/uL (4.0-10.0)
[2020-03-24 14:18] LABS: ALBUMIN 3.5 GM/DL (3.2-5.2); ALT/SGPT 23 U/L (12-78); BILIRUBIN,DIRECT < 0.1 MG/DL (0.0-0.2); BILIRUBIN,TOTAL 0.2 MG/DL (0.2-1.0); BLOOD UREA NITROGEN 24 MG/DL (7-18); CALCIUM LEVEL 8.9 MG/DL (8.8-10.2); CARBON DIOXIDE LEVEL 28 MEQ/L (21-32); CHLORIDE LEVEL 107 MEQ/L (98-107); CREATININE FOR GFR 0.92 MG/DL (0.55-1.30); GLOMERULAR FILTRATION RATE > 60.0 (>45); GLUCOSE, FASTING 99 MG/DL (70-100); LIPASE 80 U/L (73-393); POTASSIUM SERUM 4.3 MEQ/L (3.5-5.1); SODIUM LEVEL 139 MEQ/L (136-145); TOTAL PROTEIN 7.2 GM/DL (6.4-8.2)
[2020-03-24 16:24] VITALS: BP 147/88
--- NOTE | 2020-03-25 00:40 | REP ---
CHEST AND ABDOMEN SERIES: HISTORY: Abdomen pain. FINDINGS: Upright chest is compared with a prior study from 01/17/2020. The lungs are symmetrically aerated and clear. The pleural angles are sharp. Heart is not enlarged. No free subdiaphragmatic air is seen. Supine and erect views of the abdomen demonstrate air-filled loops of nondilated small and large bowel in the abdomen. Flank stripes are intact. Psoas margins appear symmetric. No mass or organomegaly is seen. There is a granulomatous calcification in the left upper quadrant. No bony abnormality. IMPRESSION: Small and large bowel loops without dilation. No evidence of obstruction. No evidence of free air. Electronically Signed by Almas Nelson MD 03/25/2020 07:51 A
== END 2020-03-24 16:31 | disposition home or self-care (01) ==
LOC: M ED 12:37
DX: R19.7 Diarrhea, unspecified (principal); Z86.73 Personal history of transient ischemic attack (TIA), and cerebral infarction without residual deficits; R06.02 Shortness of breath; Z87.891 Personal history of nicotine dependence; Z91.010 Allergy to peanuts; Z79.899 Other long term (current) drug therapy; Z79.82 Long term (current) use of aspirin; Z79.1 Long term (current) use of non-steroidal anti-inflammatories (NSAID)
CPT/HCPCS: 74021; 80048; 80076; 83690; 85025; 87507; 96361; 96374; 96375; 99284; C9113

== ENCOUNTER → 2020-10-10 | Outpatient (REF) | payer OTHER, MEDICAID ==
[~2020-10-10] MED LIST changes: -ASPI81TA85 PO; +ASPI81TA86 PO; -TAB-TAB PO; +TAB-TAB2 PO
== END ==
LOC: M SFHCPLAZ 16:52
PROVIDERS: ATTEND Physician Assistant
DX: R30.0 Dysuria (principal)
CPT/HCPCS: 81002; 87086; G0463

== ENCOUNTER → 2020-10-17 | Outpatient (REF) | payer OTHER, MEDICAID ==
[2020-10-17 13:10] LABS: HEMATOCRIT 44.6 % (36.0-47.0); HEMOGLOBIN 13.7 g/dl (12.0-15.5); MEAN CORPUSCULAR HGB CONC 30.7 g/dl (32.0-36.5); MEAN CORPUSCULAR VOLUME 94.5 fl (80.0-96.0); PLATELET COUNT, AUTOMATED 302 10^3/uL (150-450); RED BLOOD COUNT 4.72 10^6/uL (4.00-5.40); WHITE BLOOD COUNT 7.1 10^3/uL (4.0-10.0)
[2020-10-17 13:47] LABS: ALBUMIN 3.8 GM/DL (3.2-5.2); BILIRUBIN,TOTAL 0.4 MG/DL (0.2-1.0); CALCIUM LEVEL 9.4 MG/DL (8.8-10.2); CHOLESTEROL RISK RATIO 2.303 (<5); CREATININE FOR GFR 1.16 MG/DL (0.55-1.30); FREE T4 0.81 NG/DL (0.76-1.46); GLOMERULAR FILTRATION RATE 49.6 (>45); POTASSIUM SERUM 4.3 MEQ/L (3.5-5.1); THYROID STIMULATING HORMONE 2.09 uIU/ML (0.358-3.740); TOTAL PROTEIN 7.7 GM/DL (6.4-8.2)
== END ==
LOC: M SFHCADAM 10:16
PROVIDERS: ATTEND Family Medicine
DX: I63.50 Cerebral infarction due to unspecified occlusion or stenosis of unspecified cerebral artery (principal); E78.2 Mixed hyperlipidemia
CPT/HCPCS: 80053; 80061; 84439; 84443; 85027; G0463

== ENCOUNTER → 2021-02-11 | Outpatient (CLI) | payer OTHER, MEDICAID ==
--- NOTE | 2021-02-12 04:24 | REP ---
INDICATION: NECK PAIN. COMPARISON: None TECHNIQUE: AP, lateral, flexion/extension, bilateral oblique, swimmer's and open mouth views of the cervical spine FINDINGS: Neutral view demonstrates reversal of normal lordosis. Advanced multilevel degenerative changes include endplate sclerosis/heterogeneity, disc space narrowing, osteophytosis, and facet hypertrophy. Findings most notably involving C4 through C7 and to a lesser extent C3-4. No acute fracture/compression injury or subluxation. Open mouth view demonstrates normal C1-C2 articulation and odontoid process. IMPRESSION: Advanced multilevel degenerative spondylosis. <Electronically signed by Kelton Hanson > 02/12/21 0428
== END ==
LOC: M ADAMS 15:17
PROVIDERS: ATTEND Family Medicine
DX: M25.78 Osteophyte, vertebrae (principal); M47.812 Spondylosis without myelopathy or radiculopathy, cervical region; M54.2 Cervicalgia

== ENCOUNTER → 2021-02-20 | Outpatient (REF) | payer OTHER, MEDICAID ==
[2021-02-20 17:13] LABS: BLOOD UREA NITROGEN 25 MG/DL (7-18); CALCIUM LEVEL 8.7 MG/DL (8.8-10.2); CARBON DIOXIDE LEVEL 31 MEQ/L (21-32); CHLORIDE LEVEL 107 MEQ/L (98-107); CREATININE FOR GFR 0.85 MG/DL (0.55-1.30); GLOMERULAR FILTRATION RATE > 60.0 (>45); GLUCOSE, FASTING 76 MG/DL (70-100); NT-PRO BNP 12 PG/ML (<125); POTASSIUM SERUM 4.3 MEQ/L (3.5-5.1); SODIUM LEVEL 143 MEQ/L (136-145)
== END ==
LOC: M SFHCADAM 11:55
PROVIDERS: ATTEND Physician Assistant Medical
DX: R60.1 Generalized edema (principal)

== ENCOUNTER → 2021-03-11 | Outpatient (CLI) | payer OTHER, MEDICAID ==
--- NOTE | 2021-03-16 09:51 | ECHO ---
DATE OF PROCEDURE: 03/11/2021 Age: 65 Gender: Female REFERRING PHYSICIAN: Sarah Candelaria PA-C PATIENT LOCATION: Outpatient. REASON FOR STUDY: Edema MEASUREMENTS: 2D measurements: IVS 1.0 cm LV 4.0 cm LVPW 1.0 cm LA 3.4 Aorta 2.7 cm IVC 1.1 cm Doppler measurements: Peak velocity across the aortic valve 2.1 m/s Peak velocity across the LVOT 1.5 m/s Peak gradient across the aortic valve 18 mmHg Mean gradient across the aortic valve 9 mmHg. Mitral E 0.94, mitral A 1.1 with a ratio of 0.8 2D COMMENTS: 1. Normal left ventricular size, wall thickness and normal global left systolic function. The estimated left ventricular systolic ejection fraction is 60 to 65%. 2. Normal left atrium. Normal right atrium and right ventricle. 3. The atrial septum appears to be normal without evidence of defect or shunt. 4. Normal aortic root. 5. No pericardial effusion seen. 6. Mildly calcified aortic valve with mildly restricted leaflet motion. Mildly calcified mitral annulus with normal anterior mitral valve leaflet motion. Normal tricuspid valve. The pulmonic valve and proximal pulmonary artery branches were not well visualized. 7. The inferior vena cava was normal in size. Central venous pressure is most likely normal. Doppler: It detects trace aortic regurgitation, trace mitral regurgitation. Abnormal relaxation pattern was noted across the mitral valve leaflets, as well as the mitral valve annulus consistent with features of grade 1 left ventricular diastolic dysfunction. IMPRESSION: 1. Normal global left ventricular systolic function. There are some features of grade 1 left ventricular diastolic dysfunction manifested by abnormal relaxation. 2. Aortic valve sclerosis with trace aortic regurgitation and mild aortic stenosis. 3. Mitral annulus calcification with trace mitral regurgitation. 4. Global longitudinal strain/GLS was normal. Calculated at -24%. MTDD
== END ==
LOC: M CARPUL 11:00
PROVIDERS: ATTEND Physician Assistant Medical
DX: I50.32 Chronic diastolic (congestive) heart failure (principal); I35.0 Nonrheumatic aortic (valve) stenosis

== ENCOUNTER 2021-05-14 18:33 | Emergency (ER) | payer OTHER, MEDICAID ==
[~2021-05-14] VITALS: Ht 160 cm; Wt 93.7 kg
[2021-05-14] MEDS ORDERED: LIDOCAINE 5% (LIDODERM) PATCH TD ONE (21:10)
[2021-05-14] MEDS ORDERED: ACETAMINOPHEN 500 MG TAB PO ONE (21:10)
--- NOTE | 2021-05-14 22:20 | REPVR ---
PROCEDURE INFORMATION: Exam: CT Head Without Contrast Exam date and time: 05/14/2021 9:14 PM Age: 65 years old Clinical indication: Injury or trauma; Fall; Blunt trauma (contusions or hematomas) TECHNIQUE: Imaging protocol: Computed tomography of the head without contrast. Radiation optimization: All CT scans at this facility use at least one of these dose optimization techniques: automated exposure control; mA and/or kV adjustment per patient size (includes targeted exams where dose is matched to clinical indication); or iterative reconstruction. COMPARISON: CT Head without contrast 12/20/2019 10:18 PM FINDINGS: Brain: Thickening of the anterior falx is unchanged. No hemorrhage or acute infarction. Unremarkable white matter. No midline shift or mass effect. Cerebral ventricles: No ventriculomegaly. Paranasal sinuses: Visualized sinuses are clear. Mastoid air cells: Mastoid air cells are clear. Bones/joints: Unremarkable. No acute fracture. Soft tissues: Unremarkable. IMPRESSION: No acute intracranial abnormality. Electronically signed by: Phuc Segovia On 05/14/2021 22:20:09 PM
--- NOTE | 2021-05-14 22:24 | REPVR ---
PROCEDURE INFORMATION: Exam: CT Cervical Spine Without Contrast Exam date and time: 05/14/2021 9:14 PM Age: 65 years old Clinical indication: Injury or trauma; Fall; Blunt trauma TECHNIQUE: Imaging protocol: Computed tomography images of the cervical spine without contrast. Radiation optimization: All CT scans at this facility use at least one of these dose optimization techniques: automated exposure control; mA and/or kV adjustment per patient size (includes targeted exams where dose is matched to clinical indication); or iterative reconstruction. COMPARISON: DX SPINE CERVICAL COMPL 02/11/2021 3:14 PM FINDINGS: Bones/joints: No acute fracture. Normal alignment. Discs/Spinal canal/Neural foramina: Advanced discogenic degenerative changes. Advanced facet DJD with multilevel neural foraminal stenoses. No spinal stenosis. Lungs: Lung apices are normal. Soft tissues: Unremarkable. IMPRESSION: 1. No acute fracture. Normal alignment. 2. Advanced degenerative spondylosis. Electronically signed by: Phuc Segovia On 05/14/2021 22:24:43 PM
--- NOTE | 2021-05-14 22:28 | REPVR ---
PROCEDURE INFORMATION: Exam: CT Lumbar Spine without Contrast Exam date and time: 05/14/21 (9:13pm) Age: 65 years old Clinical indication: Fall. Blunt trauma (contusions or hematomas). TECHNIQUE: Imaging protocol: Computed tomography images of the lumbar spine without contrast. Radiation optimization: All CT scans at this facility use at least one of these dose optimization techniques: automated exposure control; mA and/or kV adjustment per patient size (includes targeted exams where dose is matched to clinical indication); or iterative reconstruction. COMPARISON: CT LUMBAR SPINE of 12/20/19 FINDINGS: Vertebrae: No acute fracture. Satisfactory alignment. Discs/Spinal canal: Multilevel degenerative disc changes again seen. Vacuum phenomenon at multiple levels (also seen in 2019). Significant disc space narrowing at the L3-L4 and L5-S1 levels. Soft tissues: Unremarkable. IMPRESSION: No acute fracture nor significant malalignment. Multilevel degenerative changes again seen. Electronically signed by: Mabel Gordillo On 05/14/2021 22:27:51 PM
[2021-05-14] MEDS ORDERED: LIDO5DIS41 TOP (23:25)
[2021-05-14 23:57] VITALS: BP 148/84
[2021-05-15] MEDS ORDERED: **NOTE PATIENT COMMENT** MISC XX SCH (21:00)
== END 2021-05-14 23:59 | disposition home or self-care (01) ==
LOC: M ED 18:33
DX: S16.1XXA Strain of muscle, fascia and tendon at neck level, initial encounter (principal); S39.012A Strain of muscle, fascia and tendon of lower back, initial encounter; S09.90XA Unspecified injury of head, initial encounter; W18.39XA Other fall on same level, initial encounter; Y92.018 Other place in single-family (private) house as the place of occurrence of the external cause; M51.9 Unspecified thoracic, thoracolumbar and lumbosacral intervertebral disc disorder; J44.9 Chronic obstructive pulmonary disease, unspecified; I10 Essential (primary) hypertension; D64.9 Anemia, unspecified; M81.0 Age-related osteoporosis without current pathological fracture; F41.9 Anxiety disorder, unspecified; I25.2 Old myocardial infarction; Z79.899 Other long term (current) drug therapy; Z79.82 Long term (current) use of aspirin; Z91.010 Allergy to peanuts; Z87.891 Personal history of nicotine dependence

== ENCOUNTER 2021-06-08 12:52 | Emergency (ER) | payer OTHER, MEDICAID ==
[~2021-06-08] VITALS: Ht 160 cm; Wt 89.6 kg
[~2021-06-08 12:52] MED LIST changes: +LIDO5DIS41 TOP
[2021-06-08] MEDS ORDERED: CYCL5TAB PO (15:55)
[2021-06-08] MEDS ORDERED: NAPR-837 PO (15:55)
[2021-06-08 16:00] VITALS: BP 170/94
== END 2021-06-08 16:07 | disposition home or self-care (01) ==
LOC: M ED 12:52
DX: S29.012A Strain of muscle and tendon of back wall of thorax, initial encounter (principal); X58.XXXA Exposure to other specified factors, initial encounter; Y92.89 Other specified places as the place of occurrence of the external cause; J45.909 Unspecified asthma, uncomplicated; Z86.73 Personal history of transient ischemic attack (TIA), and cerebral infarction without residual deficits; Z91.010 Allergy to peanuts; Z79.899 Other long term (current) drug therapy; Z79.82 Long term (current) use of aspirin

== ENCOUNTER 2021-06-26 14:29 | Emergency (ER) | payer OTHER, MEDICAID ==
[~2021-06-26] VITALS: Ht 160 cm; Wt 88.6 kg
[~2021-06-26 14:29] MED LIST changes: +CYCL5TAB PO
[2021-06-26] MEDS ORDERED: FAMOTIDINE INJ 20MG/2ML VIAL (S0028 PER 1) IVP ONE (16:00)
[2021-06-26] MEDS ORDERED: diphenhydrAMINE 50MG/ML VIAL (J1200) IV ONE (16:00)
[2021-06-26] MEDS ORDERED: methylPREDNISolone 125MG 2ML VIAL IV ONE (16:00)
[2021-06-26] MEDS ORDERED: BENA25CA4 PO (17:45)
[2021-06-26] MEDS ORDERED: PRED20TA PO (17:45)
[2021-06-26] MEDS ORDERED: PEPC1TAB5 PO (17:45)
[2021-06-26 18:10] VITALS: BP 137/86
== END 2021-06-26 18:10 | disposition home or self-care (01) ==
LOC: M ED 14:29
DX: R22.0 Localized swelling, mass and lump, head (principal); T63.441A Toxic effect of venom of bees, accidental (unintentional), initial encounter; Y92.89 Other specified places as the place of occurrence of the external cause; J45.909 Unspecified asthma, uncomplicated; I25.2 Old myocardial infarction; Z91.010 Allergy to peanuts; Z79.899 Other long term (current) drug therapy; Z79.82 Long term (current) use of aspirin
CPT/HCPCS: 71045; 93041; 94760; 96374; 96375; 99284; J1200; J2930

== ENCOUNTER 2021-08-02 22:01 | Emergency (ER) | payer OTHER, MEDICAID ==
[~2021-08-02] VITALS: Ht 160 cm; Wt 89.0 kg
[~2021-08-02 22:01] MED LIST changes: +BENA25CA4 PO; +PEPC1TAB5 PO; +PRED20TA PO
[2021-08-02 22:03] VITALS: BP 145/90
--- NOTE | 2021-08-02 22:47 | REPVR ---
PROCEDURE INFORMATION: Exam: XR Left Shoulder Exam date and time: 08/02/2021 10:31 PM Age: 65 years old Clinical indication: Pain; Shoulder; Left; Additional info: [place] TECHNIQUE: Imaging protocol: XR Left shoulder. Views: 2 or more views. COMPARISON: CR PORTABLE CHEST X-RAY 06/26/2021 4:04 PM FINDINGS: Bones/joints: Degenerative spurring of the inferior glenoid and degenerative subchondral cystic change. No fracture or dislocation. Soft tissues: Normal. IMPRESSION: 1. Moderate degenerative change of the glenoid. 2. Otherwise negative left shoulder. Electronically signed by: Bryn Bailey On 08/02/2021 22:46:49 PM
[2021-08-02] MEDS ORDERED: NORCO, ANEXSIA 5/325MG TABLET (HYDROcodone/ACETAMINOPHEN) PO ONE (23:20)
--- NOTE | 2021-08-02 23:50 | REPVR ---
PROCEDURE INFORMATION: Exam: XR Left Elbow Exam date and time: 08/02/2021 11:42 PM Age: 65 years old Clinical indication: Pain; Elbow; Left; Additional info: Fell through floor TECHNIQUE: Imaging protocol: XR Left elbow. Views: 3 or more views. COMPARISON: CR Shoulder, complete LEFT 08/02/2021 10:10 PM FINDINGS: Bones/joints: Minimal spur from the lateral epicondyle. No fracture. No joint effusion. Soft tissues: Normal. IMPRESSION: Negative left elbow. Electronically signed by: Bryn Bailey On 08/02/2021 23:50:24 PM
== END 2021-08-03 01:10 | disposition home or self-care (01) ==
LOC: M ED 22:01
DX: S46.812A Strain of other muscles, fascia and tendons at shoulder and upper arm level, left arm, initial encounter (principal); W17.89XA Other fall from one level to another, initial encounter; Y92.71 Barn as the place of occurrence of the external cause; J45.909 Unspecified asthma, uncomplicated; D64.9 Anemia, unspecified; I25.2 Old myocardial infarction; Z86.73 Personal history of transient ischemic attack (TIA), and cerebral infarction without residual deficits; Z87.19 Personal history of other diseases of the digestive system; Z79.899 Other long term (current) drug therapy; Z79.82 Long term (current) use of aspirin; Z91.010 Allergy to peanuts; Z87.891 Personal history of nicotine dependence

== ENCOUNTER 2021-08-15 20:43 | Emergency (ER) | payer OTHER, MEDICAID ==
[~2021-08-15] VITALS: Ht 160 cm; Wt 89.3 kg
[2021-08-15] MEDS ORDERED: NORCO, ANEXSIA 5/325MG TABLET (HYDROcodone/ACETAMINOPHEN) PO ONE (21:50)
[2021-08-15] MEDS ORDERED: NORCO 5/325MG TABLET (BULK FOR ED) PO ONE (23:20)
[2021-08-15] MEDS ORDERED: HYDR-3713 PO (23:44)
[2021-08-16 00:40] VITALS: BP 129/96
== END 2021-08-16 00:40 | disposition home or self-care (01) ==
LOC: M ED 20:43
DX: S46.812A Strain of other muscles, fascia and tendons at shoulder and upper arm level, left arm, initial encounter (principal); S46.811A Strain of other muscles, fascia and tendons at shoulder and upper arm level, right arm, initial encounter; S93.401A Sprain of unspecified ligament of right ankle, initial encounter; S93.601A Unspecified sprain of right foot, initial encounter; W13.3XXA Fall through floor, initial encounter; Y92.71 Barn as the place of occurrence of the external cause; Y93.9 Activity, unspecified; Y99.9 Unspecified external cause status; I10 Essential (primary) hypertension; M77.31 Calcaneal spur, right foot; J45.909 Unspecified asthma, uncomplicated; Z86.73 Personal history of transient ischemic attack (TIA), and cerebral infarction without residual deficits; F41.9 Anxiety disorder, unspecified; Z91.010 Allergy to peanuts; Z79.82 Long term (current) use of aspirin; Z79.899 Other long term (current) drug therapy

== ENCOUNTER 2021-09-27 16:41 | Emergency (ER) | payer OTHER, MEDICAID ==
[2021-09-27 16:41] VITALS: BP 136/83
[~2021-09-27 16:41] MED LIST changes: +HYDR-3713 PO
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
--- OUTSIDE RECORDS SUMMARY | 2021-09-27 16:48 | CCD | Continuity of Care Document ---
Author Author [facility] Organization Unknown Address [address] [place] [address], [address] [place] [address] Phone [phone] Care Team Providers Care Metrology Engineer Name Role Phone Donato HILLIARD, Debbie AUTM [phone] Mundo Earl M.D. AUTPilar [phone] Problems Active Problems Provider Date Onychomycosis Gagan Painting DPM Onset: 05/26/2021 Resolved Problems Pain in limb Gagan Painting DPM Onset: 03/25/2021 Resolved: 08/29/2021 Ingrowing nail Gagan Painting DPM Onset: 03/25/2021 Resolved: 08/29/2021 Social History Type Date Description Comments Sex Unknown ETOH Use Rarely consumes alcohol only on Holiday Tobacco Use Start: Unknown End: Unknown Patient is a former smoker stoipped 2004 Allergies and adverse reactions Active Allergies Criticality Reaction | Severity Comments Date Atorvastatin Unable to assess criticality nausea 11/11/2020 Medications Active Medications SIG Qnty Indications Ordering Provide r Date Ammonium Lactate 12% Cream apply to feet daily 140gm Gagan Painting DPM 03/12/2021 Rhinocort Allergy Unknown /0 000 Immunizations Description No Information Available Vital Signs Date Vital Result Comment 03/12/2021 8:27am Height 63 inches 5'3" Weight 198.00 lb BP Systolic 132 mmHg BP Diastolic 76 mmHg Heart Rate 89 /min BMI (Body Mass Index) 35.1 kg/m2 02/09/2021 8:44am Height 63 inches 5'3" Weight 198.00 lb BP Systolic 132 mmHg BP Diastolic 76 mmHg BMI (Body Mass Index) 35.1 kg/m2 Results Description No Information Available Procedures Date Code Description Status 08/20/2021 97354 Office/Outpatient Established Lo w MDM 20-29 Min Completed 05/21/2021 30486 Debridement 6-10 Nails Electric Completed 03/12/2021 56550 Office/Outpatient New Low MDM 30 -44 Minutes Completed Medical Devices Description No Information Available Encounters Type Date Location Provider Dx Diagnosis Office Visit 08/20/2021 8:45a [facility] Gagan Paitning DPM S92.401D Displaced unsp fx right great toe, subs for fx w routn heal B35.1 Tinea unguium Office Visit 03/12/2021 10:15a [facility] Gagan Painting DPM M79.676 Pain in unspecified toe(s) L60.0 Ingrowing nail Assessments Date Code Description Provider 08/20/2021 S92.401D Displaced unspecifie d fracture of right great toe, subsequent encounter for fracture with routine healing Gagan Painting DPM 08/20/2021 B35.1 Tinea unguium Gagan Painting, NEMO 05/21/2021 B35.1 Tinea unguium Gagan Painting, NEMO 05/21/2021 L60.0 Ingrowing nail Gagan Painting DPM 05/21/2021 M79.676 Pain in unspecified toe(s) Matteo Painting DPM 03/12/2021 M79.676 Pain in unspecified toe(s) Matteo Painting DPM 03/12/2021 L60.0 Ingrowing nail Gagan Painting DPM Plan of Treatment Future Appointment(s):* 10/29/2021 8:45 am - Gagan Painting DPM at [facility] Functional Status Description No Information Available Mental Status Description No Information Available Referrals Description No Information Available
--- OUTSIDE RECORDS SUMMARY | 2021-09-27 16:49 | CCD ---
Author Author [facility] Organization [facility] Address Unknown Phone Unavailable Care Team Providers Care Case Repairer Name Role Phone Crispin PAINTING DPM Unavailable Unavailable Crispin PAINTING DPM Unavailable Unavailable Crispin PAINTING DPM Unavailable Unavailable Crispin PAINTING DPM Unavailable Unavailable Crispin PAINTING DPM Unavailable Unavailable Crispin PAINTING DPM Unavailable Unavailable Crispin PAINTING DPM Unavailable Unavailable Crispin PAINTING DPM Unavailable Unavailable Crispin PAINTING DPM Unavailable Unavailable Crispin PAINTING DPM Unavailable Unavailable Crispin PAINTING DPM Unavailable Unavailable Crispin PAINTING DPM Unavailable Unavailable Crispin PAINTING DPM Unavailable Unavailable Crispin PAINTING DPM Unavailable Unavailable Crispin PAINTING DPM Unavailable Unavailable MAJAK, R SAMUEL DPM Unavailable Unavailable MAJAK, R SAMUEL DPM Unavailable Unavailable MAJAK, R SAMUEL DPM Unavailable Unavailable MAJAK, R SAMUEL DPM Unavailable Unavailable MAJAK, R SAMUEL DPM Unavailable Unavailable MAJAK, R SAMUEL DPM Unavailable Unavailable MAJAK, R SAMUEL DPM Unavailable Unavailable MAJAK, R SAMUEL DPM Unavailable Unavailable MAJAK, R SAMUEL DPM Unavailable Unavailable MAJAK, R SAMUEL DPM Unavailable Unavailable MAJAK, R SAMUEL DPM Unavailable Unavailable MAJAK, R SAMUEL DPM Unavailable Unavailable MAJAK, R SAMUEL DPM Unavailable Unavailable MAJAK, R SAMUEL DPM Unavailable Unavailable MAJAK, R SAMUEL DPM Unavailable Unavailable MAJAK, R SAMUEL DPM Unavailable Unavailable Re-disclosure Warning The records that you are about to access may contain information from federally-assisted alcohol or drug abuse programs. If such information is present, then the following federally mandated warning applies: This information has been disclosed to you from records protected by federal confidentiality rules (42 CFR part 2). The federal rules prohibit you from making any further disclosure of this information unless further disclosure is expressly permitted by the written consent of the person to whom it pertains or as otherwise permitted by 42 CFR part 2. A general authorization for the release of medical or other information is NOT sufficient for this purpose. The Federal rules restrict any use of the information to criminally investigate or prosecute any alcohol or drug abuse patient.The records that you are about to access may contain highly sensitive health information, the redisclosure of which is protected by Article 27-F of the [facility] Public Health law. If you continue you may have access to information: Regarding HIV / AIDS; Provided by facilities licensed or operated by the [facility] Office of Mental Health; or Provided by the [facility] Office for People With Developmental Disabilities. If such information is present, then the following [facility] mandated warning applies: This information has been disclosed to you from confidential records which are protected by state law. State law prohibits you from making any further disclosure of this information without the specific written consent of the person to whom it pertains, or as otherwise permitted by law. Any unauthorized further disclosure in violation of state law may result in a fine or usp sentence or both. A general authorization for the release of medical or other information is NOT sufficient authorization for further disc losure. Family History Family Member Name Family Member Gender Family Member Status Date o f Status Description Data Source(s) Unknown Unknown Problem [facility] ([facility]) Reports that they were healthy Unknown Unknown Problem [facility] ([facility]) Encounters Encounter Providers Location Date Indications Data Source(s ) Unknown [address] [facility] [id number] 09/02/2021 12:00:00 AM EDT eCW1 ([facility]) Outpatient [address] [facility] [id number] 09/01/2021 12:00:00 AM EDT eCW1 ([facility]) Outpatient Attender: SAMUEL PAINTING [facility] Office 07/30 08:45:00 AM EDT [facility] ([facility] Outpatient [address] [place] [phone] 03/25/2021 12:00:00 AM EDT eCW1 ([facility]) Outpatient Attender: SAMUEL PAINTING [facility] Office 02/26 10:15:00 AM EDT [facility] ([facility] Office Visit, Est Pt., Level 3 PC [address] [place] [address] 02/26/2021 12:00:00 AM EDT eCW1 ([facility]) Office Visit, Est Pt., Level 3 PC [address] [place] [address] 02/20/2021 12:00:00 AM EDT eCW1 ([facility]) Unknown [address] [facility] [id number] 02/20/2021 12:00:00 AM EDT eCW1 ([facility]) Unknown [address] [facility] [id number] 02/20/2021 12:00:00 AM EDT eCW1 ([facility]) Unknown [address] [facility] [place] [address] 02/17/2021 12:00:00 AM EDT eCW1 ([facility]) Office Visit, Est Pt., Level 3 PC [address] [place] [address] 02/11/2021 12:00:00 AM EDT eCW1 ([facility]) [place] [address] [facility] [address] 02/09/2021 12:00:00 AM EDT eCW1 ([facility]) [place] [address] [facility] [address] 12/12/2020 12:00:00 AM EST eCW1 ([facility]) [place] [address] [facility] [address] 12/10/2020 12:00:00 AM EST eCW1 ([facility]) [place] [address] [facility] [place] [address] 10/17/2020 12:00:00 AM EST eCW1 ([facility]) [place] [address] [facility] [address] 10/10/2020 12:00:00 AM EST eCW1 ([facility]) [place] [address] [facility] [place] [address] 10/09/2020 12:00:00 AM EST eCW1 ([facility]) Immunizations Vaccine Date Status Description Data Source(s) COVID-19 VACCINE Pfizer 08/03/2021 12:00:00 AM EDT completed [facility] Vaccine Series Complete: YESThis Data wa s Submitted to [facility] Via [employer]. COVID-19 VACCINE Pfizer 02/25/2021 12:00:00 AM EDT completed [facility] Vaccine Series Complete: YESThis Data wa s Submitted to [facility] Via [employer]. COVID-19 VACCINE Pfizer 02/04/2021 12:00:00 AM EST completed [facility] Vaccine Series Complete: NOThis Data was Submitted to [facility] Via [employer]. DIPHTHERIA,PERTUSSIS(ACELLULAR),TETANUS VACCINE/PF 12:00:00 AM EST completed [facility] INFLUENZA VIRUS VACCINE QUADRIVAL SPLIT 2019-21(65 YR UP)/PF 12/27/2020 12:00:00 AM EST completed [facility] Medications Medication Brand Name Start Date Product Form Dose Route Admi nistrative Instructions Pharmacy Instructions Status Indications Reaction Description Data Source(s) Fluticasone propionate 0.05 MG/ACTUAT Metered Dose [facility] 50 mcg/actuation FLUTICASONE PROPIONATE 09/01/2021 12:00:00 AM EDT spray,suspension 16 SPRAY 1 SPRAY IN EACH NOSTRIL BEFORE BEDTIME SPRAY 1 SPRAY IN EACH NOSTRIL BEFORE BEDTIME SOLD: 09/01/2021 [facility] 15 mg 09/01/2021 12:00:00 AM EDT tablet 30 TAKE ONE TABLET BY MOUTH EVERY DAY NEEDED TAKE ONE TABLET BY MOUTH EVERY DAY NEEDED SOLD: 09/01/2021 [facility] meloxicam 15 MG Oral Tablet Meloxicam 15 MG Meloxicam 15 MG 09/01/2021 12:00:00 AM EDT 1.0 {tablet} active Meloxicam 1 5 MG eCW1 ([facility]) meloxicam 15 MG Oral Tablet Meloxicam 15 MG Meloxicam 15 MG 09/01/2021 12:00:00 AM EDT 1.0 {tablet} active Meloxicam 1 5 MG eCW1 ([facility]) Acetaminophen 325 MG / Hydrocodone Bitartrate 5 MG Ora l Tablet 5-325 mg HYDROCODONE/ACETAMINOPHEN 08/16/2021 12:00:00 AM EDT tablet 15 TAKE ONE TABLET BY MOUTH THREE TIMES A DAY NEEDED FOR PAIN * MAXIMUM DAILY DOSE = 3 TAKE ONE TABLET BY MOUTH THREE TIMES A DAY NEEDED FOR PAIN * MAXIMUM DAILY DOSE = 3 SOLD: 08/16/2021 [facility] 400 mcg 07/28/2021 12:00:00 AM EDT tablet 90 TAKE ONE TABLET BY MOUTH EVERY DAY TAKE ONE TABLET BY MOUTH EVERY DAY SOLD: 07/28/2021 [facility] 90 mcg/actuation 07/28/2021 12:00:00 AM EDT HFA aerosol inha ler 54 INHALE 2 PUFFS BY MOUTH FOUR TIMES A DAY NEEDED INHALE 2 PUFFS BY MOUTH FOUR TIMES A DAY NEEDED SOLD: 07/28/2021 [facility] 25 mg 06/29/2021 12:00:00 AM EDT tablet 24 TAKE TWO CAPLETS BY MOUTH EVERY 6 TO 8 HOURS NEEDED ITCHING/SWELLING TAKE TWO CAPLETS BY MOUTH EVERY 6 TO 8 HOURS NEEDED ITCHING/SWELLING SOLD: 07/10/2021 [facility] 20 mg 06/27/2021 12:00:00 AM EDT tablet 10 TAKE TWO TABLETS BY MOUTH ONCE DAILY TAKE TWO TABLETS BY MOUTH ONCE DAILY SOLD: 06/27/2021 [facility] Famotidine 20 MG Oral Tablet FAMOTIDINE 06/27/2021 12:00:00 AM EDT tab let 10 TAKE ONE TABLET BY MOUTH TWO TIMES A DAY TAKE ONE TABLET BY MOUTH TWO TIMES A DAY SOLD: 06/27/2021 [facility] 400 mcg 06/24/2021 12:00:00 AM EDT tablet 30 TAKE ONE TABLET BY MOUTH EVERY DAY TAKE ONE TABLET BY MOUTH EVERY DAY SOLD: 06/27/2021 [facility] Cyclobenzaprine hydrochloride 5 MG Oral Tablet CYCLOBENZAPRI NE HCL 06/08/2021 12:00:00 AM EDT tablet 7 TAKE ONE TABLET BY MOUTH AT BEDTIME NEEDED FOR MUSCLE SPASMS TAKE ONE TABLET BY MOUTH AT BEDTIME NEEDED FOR MUSC LE SPASMS SOLD: 06/08/2021 [facility] 500 mg 06/08/2021 12:00:00 AM EDT tablet 10 TAKE ONE TABLET BY MOUTH TWICE A DAY WITH FOOD TAKE ONE TABLET BY MOUTH TWICE A DAY WITH FOOD SOLD: 06/08/2021 [facility] 12 % 03/20/2021 12:00:00 AM EDT cream 140 APPLY TO FEET ONCE DAILY APPLY TO FEET ONCE DAILY SOLD: 03/20/2021 [facility] 12 % 03/20/2021 12:00:00 AM EDT cream 140 APPLY TO FEET ONCE DAILY APPLY TO FEET ONCE DAILY SOLD: 04/06/2021 [facility] ammonium lactate 120 MG/ML Topical Cream Ammonium Lactate 03/12/2021 12:00:00 AM EDT active [facility] ([facility] 25 mg 02/27/2021 12:00:00 AM EDT tablet 90 TAKE ONE TABLET BY MOUTH EVERY DAY TAKE ONE TABLET BY MOUTH EVERY DAY SOLD: 02/28/2021 [facility] 25 mg 02/27/2021 12:00:00 AM EDT tablet 30 TAKE ONE TABLET BY MOUTH EVERY DAY TAKE ONE TABLET BY MOUTH EVERY DAY SOLD: 02/28/2021 [facility] 500 mg(1,250mg) -200 unit 02/27/2021 12:00:00 AM EDT tablet 30 TAKE ONE TABLET BY MOUTH EVERY DAY WITH A MEAL TAKE ONE TABLET BY MOUTH EVERY DAY WITH A MEAL SOLD: 02/28/2021 [facility] Spironolactone 25 MG Oral Tablet Spironolactone 25 MG 2020 12:00:00 AM EDT 1.0 {tablet} active Spironolact one 25 MG eCW1 ([facility]) Spironolactone 25 MG Oral Tablet Spironolactone 25 MG 2020 12:00:00 AM EDT 1.0 {tablet} active Spironolact one 25 MG eCW1 ([facility]) Spironolactone 25 MG Oral Tablet Spironolactone 25 MG 2020 12:00:00 AM EDT 1.0 {tablet} active Spironolact one 25 MG eCW1 ([facility]) Spironolactone 25 MG Oral Tablet Spironolactone 25 MG 2020 12:00:00 AM EDT 1.0 {tablet} active Spironolact one 25 MG eCW1 ([facility]) Spironolactone 25 MG Oral Tablet Spironolactone 25 MG 2020 12:00:00 AM EDT 1.0 {tablet} active Spironolact one 25 MG eCW1 ([facility]) Furosemide 40 MG Oral Tablet Furosemide 40 MG 02/20/2021 12:00:00 A M EDT 1.0 {tablet} active Furosemide 40 MG eCW1 ( [facility]) 40 mg 02/20/2021 12:00:00 AM EDT tablet 7 TAKE ONE TABLET BY MOUTH EVERY DAY FOR 7 DAYS TAKE ONE TABLET BY MOUTH EVERY DAY FOR 7 DAYS SOLD: 02/20/2021 [facility] Furosemide 40 MG Oral Tablet Furosemide 40 MG 02/20/2021 12:00:00 A M EDT 1.0 {tablet} active Furosemide 40 MG eCW1 ( [facility]) Acetaminophen 300 MG / Codeine Phosphate 30 MG Oral Tablet Acetaminophen-Codeine #3 300-30 MG Acetaminophen-Codeine #3 300-30 MG 02/11/2021 12:00:00 AM EDT 1.0 {tablet_as_needed} suspended Acetaminoph en-Codeine #3 300-30 MG eCW1 ([facility]) Acetaminophen 300 MG / Codeine Phosphate 30 MG Oral Tablet Acetaminophen-Codeine #3 300-30 MG Acetaminophen-Codeine #3 300-30 MG 02/11/2021 12:00:00 AM EDT 1.0 {tablet_as_needed} active Acetaminophen -Codeine #3 300-30 MG eCW1 ([facility]) Acetaminophen 300 MG / Codeine Phosphate 30 MG Oral Tablet Acetaminophen-Codeine #3 300-30 MG Acetaminophen-Codeine #3 300-30 MG 02/11/2021 12:00:00 AM EDT 1.0 {tablet_as_needed} active Acetaminophen -Codeine #3 300-30 MG eCW1 ([facility]) Acetaminophen 300 MG / Codeine Phosphate 30 MG Oral Tablet Acetaminophen-Codeine #3 300-30 MG Acetaminophen-Codeine #3 300-30 MG 02/11/2021 12:00:00 AM EDT 1.0 {tablet_as_needed} active Acetaminophen -Codeine #3 300-30 MG eCW1 ([facility]) Acetaminophen 300 MG / Codeine Phosphate 30 MG Oral Tablet Acetaminophen-Codeine #3 300-30 MG Acetaminophen-Codeine #3 300-30 MG 02/11/2021 12:00:00 AM EDT 1.0 {tablet_as_needed} active Acetaminophen -Codeine #3 300-30 MG eCW1 ([facility]) 300-30 mg 02/11/2021 12:00:00 AM EDT tablet 20 TAKE ONE TABLET BY MOUTH TWICE A DAY NEEDED MAXIMUM DAILY DOSE = 2 TAKE ONE TABLET BY MOUTH TWICE A DAY NEEDED MAXIMUM DAILY DOSE = 2 SOLD: 02/11/2021 [facility] Acetaminophen 300 MG / Codeine Phosphate 30 MG Oral Tablet Acetaminophen-Codeine #3 300-30 MG Acetaminophen-Codeine #3 300-30 MG 02/11/2021 12:00:00 AM EDT 1.0 {tablet_as_needed} suspended Acetaminoph en-Codeine #3 300-30 MG eCW1 ([facility]) Acetaminophen 300 MG / Codeine Phosphate 30 MG Oral Tablet Acetaminophen-Codeine #3 300-30 MG Acetaminophen-Codeine #3 300-30 MG 02/11/2021 12:00:00 AM EDT 1.0 {tablet_as_needed} active Acetaminophen -Codeine #3 300-30 MG eCW1 ([facility]) Acetaminophen 300 MG / Codeine Phosphate 30 MG Oral Tablet Acetaminophen-Codeine #3 300-30 MG Acetaminophen-Codeine #3 300-30 MG 02/11/2021 12:00:00 AM EDT 1.0 {tablet_as_needed} active Acetaminophen -Codeine #3 300-30 MG eCW1 ([facility]) Acetaminophen 300 MG / Codeine Phosphate 30 MG Oral Tablet Acetaminophen-Codeine #3 300-30 MG Acetaminophen-Codeine #3 300-30 MG 02/11/2021 12:00:00 AM EDT 1.0 {tablet_as_needed} active Acetaminophen -Codeine #3 300-30 MG eCW1 ([facility]) carbamide peroxide 65 MG/ML Otic Solution [Debrox] Debrox 6. 5 % Debrox 6.5 % 01/12/2021 12:00:00 AM EST active Debrox 6.5 % eCW1 ([facility]) carbamide peroxide 65 MG/ML Otic Solution [Debrox] Debrox 6. 5 % Debrox 6.5 % 01/12/2021 12:00:00 AM EST active Debrox 6.5 % eCW1 ([facility]) Acetaminophen 300 MG / Codeine Phosphate 30 MG Oral Tablet Acetaminophen-Codeine #3 300-30 MG Acetaminophen-Codeine #3 300-30 MG 01/12/2021 12:00:00 AM EST 1.0 {tablet_as_needed} active Acetamino phen-Codeine #3 300-30 MG eCW1 ([facility]) Acetaminophen 300 MG / Codeine Phosphate 30 MG Oral Tablet Acetaminophen-Codeine #3 300-30 MG Acetaminophen-Codeine #3 300-30 MG 01/12/2021 12:00:00 AM EST 1.0 {tablet_as_needed} active Acetamino phen-Codeine #3 300-30 MG eCW1 ([facility]) 6.5 % 01/12/2021 12:00:00 AM EST drops 15 INSTILL 5 DROPS INTO BOTH EARS AT BEDTIME INSTILL 5 DROPS INTO BOTH EARS AT BEDTIME SOLD: 01/12/2021 [facility] Acetaminophen 300 MG / Codeine Phosphate 30 MG Oral Tablet Acetaminophen-Codeine #3 300-30 MG Acetaminophen-Codeine #3 300-30 MG 01/12/2021 12:00:00 AM EST 1.0 {tablet_as_needed} active Acetamino phen-Codeine #3 300-30 MG eCW1 ([facility]) Acetaminophen 300 MG / Codeine Phosphate 30 MG Oral Tablet Acetaminophen-Codeine #3 300-30 MG Acetaminophen-Codeine #3 300-30 MG 01/12/2021 12:00:00 AM EST 1.0 {tablet_as_needed} active Acetamino phen-Codeine #3 300-30 MG eCW1 ([facility]) Acetaminophen 300 MG / Codeine Phosphate 30 MG Oral Tablet Acetaminophen-Codeine #3 300-30 MG Acetaminophen-Codeine #3 300-30 MG 01/12/2021 12:00:00 AM EST 1.0 {tablet_as_needed} active Acetamino phen-Codeine #3 300-30 MG eCW1 ([facility]) carbamide peroxide 65 MG/ML Otic Solution [Debrox] Debrox 6. 5 % Debrox 6.5 % 01/12/2021 12:00:00 AM EST active Debrox 6.5 % eCW1 ([facility]) Acetaminophen 300 MG / Codeine Phosphate 30 MG Oral Tablet Acetaminophen-Codeine #3 300-30 MG Acetaminophen-Codeine #3 300-30 MG 01/12/2021 12:00:00 AM EST 1.0 {tablet_as_needed} suspended Acetami nophen-Codeine #3 300-30 MG eCW1 ([facility]) Acetaminophen 300 MG / Codeine Phosphate 30 MG Oral Tablet Acetaminophen-Codeine #3 300-30 MG Acetaminophen-Codeine #3 300-30 MG 01/12/2021 12:00:00 AM EST 1.0 {tablet_as_needed} active Acetamino phen-Codeine #3 300-30 MG eCW1 ([facility]) carbamide peroxide 65 MG/ML Otic Solution [Debrox] Debrox 6. 5 % Debrox 6.5 % 01/12/2021 12:00:00 AM EST active Debrox 6.5 % eCW1 ([facility]) carbamide peroxide 65 MG/ML Otic Solution [Debrox] Debrox 6. 5 % Debrox 6.5 % 01/12/2021 12:00:00 AM EST active Debrox 6.5 % eCW1 ([facility]) Acetaminophen 300 MG / Codeine Phosphate 30 MG Oral Tablet Acetaminophen-Codeine #3 300-30 MG Acetaminophen-Codeine #3 300-30 MG 01/12/2021 12:00:00 AM EST 1.0 {tablet_as_needed} active Acetamino phen-Codeine #3 300-30 MG eCW1 ([facility]) carbamide peroxide 65 MG/ML Otic Solution [Debrox] Debrox 6. 5 % Debrox 6.5 % 01/12/2021 12:00:00 AM EST active Debrox 6.5 % eCW1 ([facility]) carbamide peroxide 65 MG/ML Otic Solution [Debrox] Debrox 6. 5 % Debrox 6.5 % 01/12/2021 12:00:00 AM EST active Debrox 6.5 % eCW1 ([facility]) 300-30 mg 01/12/2021 12:00:00 AM EST tablet 28 TAKE ONE TABLET BY MOUTH EVERY 6 HOURS NEEDED MAXIMUM DAILY DOSE = 4 TAKE ONE TABLET BY MOUTH EVERY 6 HOURS NEEDED MAXIMUM DAILY DOSE = 4 SOLD: 01/12/2021 [facility] Acetaminophen 300 MG / Codeine Phosphate 30 MG Oral Tablet Acetaminophen-Codeine #3 300-30 MG Acetaminophen-Codeine #3 300-30 MG 01/12/2021 12:00:00 AM EST 1.0 {tablet_as_needed} suspended Acetami nophen-Codeine #3 300-30 MG eCW1 ([facility]) Acetaminophen 300 MG / Codeine Phosphate 30 MG Oral Tablet Acetaminophen-Codeine #3 300-30 MG Acetaminophen-Codeine #3 300-30 MG 01/12/2021 12:00:00 AM EST 1.0 {tablet_as_needed} active Acetamino phen-Codeine #3 300-30 MG eCW1 ([facility]) carbamide peroxide 65 MG/ML Otic Solution [Debrox] Debrox 6. 5 % Debrox 6.5 % 01/12/2021 12:00:00 AM EST active Debrox 6.5 % eCW1 ([facility]) carbamide peroxide 65 MG/ML Otic Solution [Debrox] Debrox 6. 5 % Debrox 6.5 % 01/12/2021 12:00:00 AM EST active Debrox 6.5 % eCW1 ([facility]) carbamide peroxide 65 MG/ML Otic Solution [Debrox] Debrox 6. 5 % Debrox 6.5 % 01/12/2021 12:00:00 AM EST active Debrox 6.5 % eCW1 ([facility]) 500 mg(1,250mg) -200 unit 12/13/2020 12:00:00 AM EST tablet 30 TAKE ONE TABLET BY MOUTH EVERY DAY WITH MEAL TAKE ONE TABLET BY MOUTH EVERY DAY WITH MEAL SOLD: 12/17/2020 [facility] Calcium 500 + D 500-200 MG-UNIT Calcium 500 + D 500-200 MG-U NIT 12/12/2020 12:00:00 AM EST 1.0 {tablet_with_a_meal} active Calcium 500 + D 500- 200 MG-UNIT eCW1 ([facility]) Calcium 500 + D 500-200 MG-UNIT Calcium 500 + D 500-200 MG-U NIT 12/12/2020 12:00:00 AM EST 1.0 {tablet_with_a_meal} active Calcium 500 + D 500- 200 MG-UNIT eCW1 ([facility]) Calcium 500 + D 500-200 MG-UNIT Calcium 500 + D 500-200 MG-U NIT 12/12/2020 12:00:00 AM EST 1.0 {tablet_with_a_meal} active Calcium 500 + D 500- 200 MG-UNIT eCW1 ([facility]) Calcium 500 + D 500-200 MG-UNIT Calcium 500 + D 500-200 MG-U NIT 12/12/2020 12:00:00 AM EST 1.0 {tablet_with_a_meal} active Calcium 500 + D 500- 200 MG-UNIT eCW1 ([facility]) Calcium 500 + D 500-200 MG-UNIT Calcium 500 + D 500-200 MG-U NIT 12/12/2020 12:00:00 AM EST 1.0 {tablet_with_a_meal} active Calcium 500 + D 500- 200 MG-UNIT eCW1 ([facility]) Calcium 500 + D 500-200 MG-UNIT Calcium 500 + D 500-200 MG-U NIT 12/12/2020 12:00:00 AM EST 1.0 {tablet_with_a_meal} active Calcium 500 + D 500- 200 MG-UNIT eCW1 ([facility]) Calcium 500 + D 500-200 MG-UNIT Calcium 500 + D 500-200 MG-U NIT 12/12/2020 12:00:00 AM EST 1.0 {tablet_with_a_meal} active Calcium 500 + D 500- 200 MG-UNIT eCW1 ([facility]) Calcium 500 + D 500-200 MG-UNIT Calcium 500 + D 500-200 MG-U NIT 12/12/2020 12:00:00 AM EST 1.0 {tablet_with_a_meal} active Calcium 500 + D 500- 200 MG-UNIT eCW1 ([facility]) Calcium 500 + D 500-200 MG-UNIT Calcium 500 + D 500-200 MG-U NIT 12/12/2020 12:00:00 AM EST 1.0 {tablet_with_a_meal} active Calcium 500 + D 500- 200 MG-UNIT eCW1 ([facility]) Calcium 500 + D 500-200 MG-UNIT Calcium 500 + D 500-200 MG-U NIT 12/12/2020 12:00:00 AM EST 1.0 {tablet_with_a_meal} active Calcium 500 + D 500- 200 MG-UNIT eCW1 ([facility]) Nystatin 100 UNT/MG Topical Powder 100,000 unit/gram [facility] N 12/12/2020 12:00:00 AM EST powder 60 APPLY TO BOTH BREAST FOLD S TWO TIMES A DAY APPLY TO BOTH BREAST FOLDS TWO TIMES A DAY SOLD: 12/17/2020 [facility] Calcium 500 + D 500-200 MG-UNIT Calcium 500 + D 500-200 MG-U NIT 12/12/2020 12:00:00 AM EST 1.0 {tablet_with_a_meal} active Calcium 500 + D 500- 200 MG-UNIT eCW1 ([facility]) 50 mcg (2,000 unit) 12/11/2020 12:00:00 AM EST capsule 30 TAKE ONE CAPSULE BY MOUTH EVERY DAY TAKE ONE CAPSULE BY MOUTH EVERY DAY SOLD: 02/27/2021 [facility] 50 mcg (2,000 unit) 12/11/2020 12:00:00 AM EST capsule 30 TAKE ONE CAPSULE BY MOUTH EVERY DAY TAKE ONE CAPSULE BY MOUTH EVERY DAY SOLD: 12/17/2020 [facility] 400 mcg 12/10/2020 12:00:00 AM EST tablet 30 TAKE ONE TABLET BY MOUTH EVERY DAY TAKE ONE TABLET BY MOUTH EVERY DAY SOLD: 04/06/2021 [facility] 400 mcg 12/10/2020 12:00:00 AM EST tablet 30 TAKE ONE TABLET BY MOUTH EVERY DAY TAKE ONE TABLET BY MOUTH EVERY DAY SOLD: 05/14/2021 [facility] 400 mcg 12/10/2020 12:00:00 AM EST tablet 30 TAKE ONE TABLET BY MOUTH EVERY DAY TAKE ONE TABLET BY MOUTH EVERY DAY SOLD: 02/27/2021 [facility] atorvastatin 40 MG Oral Tablet ATORVASTATIN CALCIUM 12/10/2020 1 2:00:00 AM EST tablet 30 TAKE ONE TABLET BY MOUTH EVERY D AY TAKE ONE TABLET BY MOUTH EVERY DAY SOLD: 12/17/2020 [facility] 400 mcg 12/10/2020 12:00:00 AM EST tablet 30 TAKE ONE TABLET BY MOUTH EVERY DAY TAKE ONE TABLET BY MOUTH EVERY DAY SOLD: 12/17/2020 [facility] 25 mg 12/10/2020 12:00:00 AM EST tablet 30 TAKE ONE TABLET BY MOUTH IN THE MORNING WITH FOOD TAKE ONE TABLET BY MOUTH IN THE MORNING WITH FOOD SOLD : 12/17/2020 [facility] 100,000 unit/gram 12/06/2020 12:00:00 AM EST powder 60 APPLY 1 APPLICATION AFFECTED AREA(S) TWO TIMES A DAY BOTH BREASTS FOLDS EXTERNALLY APPLY 1 APPLICATION AFFECTED AREA(S) TWO TIMES A DAY BOTH BREASTS FOLDS EXTERNALLY SOLD: 12/09/2020 [facility] Mupirocin 0.02 MG/MG Topical Ointment Mupirocin 2 % Mupiroci n 2 % 10/10/2020 12:00:00 AM EST suspended Mupir ocin 2 % eCW1 ([facility]) Fluconazole 150 MG Oral Tablet [Diflucan] Diflucan 150 MG Di flucan 150 MG 10/10/2020 12:00:00 AM EST 1.0 {tablet} suspended Diflucan 150 MG eCW1 ([facility]) Mupirocin 0.02 MG/MG Topical Ointment Mupirocin 2 % Mupiroci n 2 % 10/10/2020 12:00:00 AM EST suspended Mupir ocin 2 % eCW1 ([facility]) Fluconazole 150 MG Oral Tablet [Diflucan] Diflucan 150 MG Di flucan 150 MG 10/10/2020 12:00:00 AM EST 1.0 {tablet} suspended Diflucan 150 MG eCW1 ([facility]) 2 % 10/10/2020 12:00:00 AM EST ointment 22 APPLY THIN LAYER TO AFFECTED TOES THREE TIMES A DAY FOR 7 DAYS APPLY THIN LAYER TO AFFECTED TOES THREE TIMES A DAY FOR 7 DAYS SOLD: 10/10/2020 [facility] Fluconazole 150 MG Oral Tablet [Diflucan] Diflucan 150 MG Di flucan 150 MG 10/10/2020 12:00:00 AM EST 1.0 {tablet} suspended Diflucan 150 MG eCW1 ([facility]) Mupirocin 0.02 MG/MG Topical Ointment Mupirocin 2 % Mupiroci n 2 % 10/10/2020 12:00:00 AM EST suspended Mupir ocin 2 % eCW1 ([facility]) Fluconazole 150 MG Oral Tablet [Diflucan] Diflucan 150 MG Di flucan 150 MG 10/10/2020 12:00:00 AM EST 1.0 {tablet} suspended Diflucan 150 MG eCW1 ([facility]) 150 mg 10/10/2020 12:00:00 AM EST tablet 2 TAKE ONE TABLET BY MOUTH NOW THEN REPEAT IN 72 HOURS IF YOUR SYMPTOMS PERSIST TAKE ONE TABLET BY MOUTH NOW THEN REPEAT IN 72 HOURS IF YOUR SYMPTOMS PERSIST SOLD: 10/10/2020 [facility] Mupirocin 0.02 MG/MG Topical Ointment Mupirocin 2 % Mupiroci n 2 % 10/10/2020 12:00:00 AM EST suspended Mupir ocin 2 % eCW1 ([facility]) 2 % 10/10/2020 12:00:00 AM EST ointment 22 APPLY THIN LAYER TO AFFECTED TOES THREE TIMES A DAY FOR 7 DAYS APPLY THIN LAYER TO AFFECTED TOES THREE TIMES A DAY FOR 7 DAYS SOLD: 11/03/2020 [facility] Nystatin 100 UNT/MG Topical Powder 100,000 unit/gram [facility] N 10/01/2020 12:00:00 AM EST powder 60 APPLY AFFECTED A JEFRY(S) TWO TIMES A DAY TO BREAST FOLDS APPLY AFFECTED AREA(S) TWO TIMES A DAY TO BREAST FOLDS SOLD: 04/2020 [facility] 50 mcg/actuation 08/06/2020 12:00:00 AM EDT spray,suspension 16 SPRAY 1 SPRAY INTO BOTH NOSTRILS ONCE DAILY SPRAY 1 SPRAY INTO BOTH NOSTRILS ONCE DAILY SOLD: 12/04/2020 [facility] 50 mcg/actuation 08/06/2020 12:00:00 AM EDT spray,suspension 16 SPRAY 1 SPRAY INTO BOTH NOSTRILS ONCE DAILY SPRAY 1 SPRAY INTO BOTH NOSTRILS ONCE DAILY SOLD: 06/08/2021 [facility] 50 mcg/actuation 08/06/2020 12:00:00 AM EDT spray,suspension 16 SPRAY 1 SPRAY INTO BOTH NOSTRILS ONCE DAILY SPRAY 1 SPRAY INTO BOTH NOSTRILS ONCE DAILY SOLD: 04/06/2021 [facility] 50 mcg/actuation 08/06/2020 12:00:00 AM EDT spray,suspension 16 SPRAY 1 SPRAY INTO BOTH NOSTRILS ONCE DAILY SPRAY 1 SPRAY INTO BOTH NOSTRILS ONCE DAILY SOLD: 08/07/2020 [facility] 50 mcg/actuation 08/06/2020 12:00:00 AM EDT spray,suspension 16 SPRAY 1 SPRAY INTO BOTH NOSTRILS ONCE DAILY SPRAY 1 SPRAY INTO BOTH NOSTRILS ONCE DAILY SOLD: 02/03/2021 [facility] 50 mcg/actuation 08/06/2020 12:00:00 AM EDT spray,suspension 16 SPRAY 1 SPRAY INTO BOTH NOSTRILS ONCE DAILY SPRAY 1 SPRAY INTO BOTH NOSTRILS ONCE DAILY SOLD: 10/03/2020 [facility] 10 mg 08/05/2020 12:00:00 AM EDT tablet 90 TAKE ONE TABLET BY MOUTH EVERY DAY TAKE ONE TABLET BY MOUTH EVERY DAY SOLD: 08/05/2020 [facility] 90 mcg/actuation 08/05/2020 12:00:00 AM EDT HFA aerosol inha ler 54 INHALE 2 PUFFS BY MOUTH FOUR TIMES A DAY NEEDED INHALE 2 PUFFS BY MOUTH FOUR TIMES A DAY NEEDED SOLD: 02/11/2021 [facility] 10 mg 08/05/2020 12:00:00 AM EDT tablet 90 TAKE ONE TABLET BY MOUTH EVERY DAY TAKE ONE TABLET BY MOUTH EVERY DAY SOLD: 12/04/2020 [facility] 10 mg 08/05/2020 12:00:00 AM EDT tablet 90 TAKE ONE TABLET BY MOUTH EVERY DAY TAKE ONE TABLET BY MOUTH EVERY DAY SOLD: 04/06/2021 [facility] 90 mcg/actuation 08/05/2020 12:00:00 AM EDT HFA aerosol inha ler 54 INHALE 2 PUFFS BY MOUTH FOUR TIMES A DAY NEEDED INHALE 2 PUFFS BY MOUTH FOUR TIMES A DAY NEEDED SOLD: 08/05/2020 [facility] 90 mcg/actuation 08/05/2020 12:00:00 AM EDT HFA aerosol inha ler 54 INHALE 2 PUFFS BY MOUTH FOUR TIMES A DAY NEEDED INHALE 2 PUFFS BY MOUTH FOUR TIMES A DAY NEEDED SOLD: 12/09/2020 [facility] 90 mcg/actuation 08/05/2020 12:00:00 AM EDT HFA aerosol inha ler 54 INHALE 2 PUFFS BY MOUTH FOUR TIMES A DAY NEEDED INHALE 2 PUFFS BY MOUTH FOUR TIMES A DAY NEEDED SOLD: 10/10/2020 [facility] 90 mcg/actuation 08/05/2020 12:00:00 AM EDT HFA aerosol inha ler 54 INHALE 2 PUFFS BY MOUTH FOUR TIMES A DAY NEEDED INHALE 2 PUFFS BY MOUTH FOUR TIMES A DAY NEEDED SOLD: 05/14/2021 [facility] 100,000 unit/gram 06/09/2020 12:00:00 AM EDT powder 60 APPLY TO AFFECTED AREA(S) TWO TIMES A DAY TO BOTH BREAST FOLDS APPLY TO AFFECTED AREA(S) TWO TIMES A DAY TO BOTH BREAST FOLDS SOLD: 09/05/2020 [facility] 1 % 06/09/2020 12:00:00 AM EDT cream 60 APPLY TO AFFECTED AREA(S) ON FEET TWO TIMES A DAY APPLY TO AFFECTED AREA(S) ON FEET TWO TIMES A DAY SOLD : 02/20/2021 [facility] 1 % 06/09/2020 12:00:00 AM EDT cream 60 APPLY TO AFFECTED AREA(S) ON FEET TWO TIMES A DAY APPLY TO AFFECTED AREA(S) ON FEET TWO TIMES A DAY SOLD : 10/03/2020 [facility] 1 % 06/09/2020 12:00:00 AM EDT cream 60 APPLY TO AFFECTED AREA(S) ON FEET TWO TIMES A DAY APPLY TO AFFECTED AREA(S) ON FEET TWO TIMES A DAY SOLD : 12/04/2020 [facility] 1 % 06/09/2020 12:00:00 AM EDT cream 60 APPLY TO AFFECTED AREA(S) ON FEET TWO TIMES A DAY APPLY TO AFFECTED AREA(S) ON FEET TWO TIMES A DAY SOLD : 09/05/2020 [facility] 1 % 06/09/2020 12:00:00 AM EDT cream 60 APPLY TO AFFECTED AREA(S) ON FEET TWO TIMES A DAY APPLY TO AFFECTED AREA(S) ON FEET TWO TIMES A DAY SOLD : 12/27/2020 [facility] MULTIVITAMIN 04/01/2020 12:00:00 AM EDT tablet 30 TAKE ONE TABLET BY MOUTH EVERY DAY TAKE ONE TABLET BY MOUTH EVERY DAY SOLD: 09/05/2020 [facility] Insurance Providers Payer name Policy type / Coverage type Policy ID Covered republican ID Covered republican's relationship to jane Policy Jane Plan Information [facility] DUAL COMPLETE [id number] Patient is Insured [id number] [facility] COMMUNITY PLAN UNAVAILABLE Patient is Insured UNAVAILABLE MEDICARE [id number] Patient is Insured [id number] MEDICARE [id number] Patient is Insured [id number] MEDICAID [id number] Patient is Insured [id number] [facility] DUAL COMPLETE NOTNEEDED Patient is Insured NOTNEEDED MEDICARE [id number] Patient is Insured [id number] [facility] COMMUNITY PLAN [id number] Patient is Insured [id number] [facility] Maintenance Organization ([facility] [id number] Self [id number] [facility] ([facility] [id number] Self [id number] [facility] Maintenance [facility] ([facility]) [id number] Self [id number] [facility] Maintenance [facility] ([facility] [id number] Self [id number] [employer] G[employer] [id number] SP [id number] [facility] [id number] SP [id number] [facility] [id number] SP [id number] [facility]) O [id number] S [id number] [facility] [id number] SP [id number] [facility] [id number] SP [id number] [facility] Maintenance [facility] ([facility] [id number] Self [id number] [facility]-Medicaid [id number] [facility]-Medicaid [id number] [facility]-Medicaid [id number] [facility]-Medicaid [id number] [facility] [id number] [facility]) O [id number] S [id number] [facility] [id number] SP [id number] ANSI-Medicaid [id number] ANSI-Medicaid [id number] MEDICARE [id number] SP [id number] [facility] [id number] SP [id number] ANSI-Medicaid [id number] ANSI-Medicaid [id number] [facility] Health Maintenance Organization ([facility] [id number] Self [id number] [facility] O [id number] S [id number] [facility] Health Maintenance Organization ([facility]) [id number] Self [id number] [facility] Health Maintenance Organization (O) [id number] Self [id number] [facility] ([facility]) [id number] Self [id number] [facility] ([facility] [id number] Self [id number] [facility] ([facility]) [id number] Self [id number] [facility] ([facility] [id number] Self [id number] [facility] ([facility] [id number] Self [id number] [facility] ([facility] [id number] Self [id number] PREFERRED MUT INS CO NO FAULT [id number] [facility] ([facility] [id number] Self PREFERRED MUT INS CO NO FAULT [id number] [id number] [facility] Maintenance Organization ([facility] [id number] Self UN COMMUNITY PLAN MCDO [id number] SP [id number] [facility] COMMUNITY PLAN MCDO [id number] SP [id number] [facility]) P [id number] S [id number] [facility]) P [id number] S [id number] [place] [id number] SP [id number] [employer] [id number] SP [id number] [employer] G[employer] [id number] SP [id number] [employer] G[employer] [id number] SP [id number] [employer] G[employer] [id number] SP [id number] EMEDNY [id number] SP [id number] [employer] GOLD SEE INS CARD SP SEE I NS CARD MEDICARE [id number] SP [id number] [employer] GOLD [id number] SP [id number] [employer] HMO O [id number] S [id number] MEDICAID M [id number] S [id number] MEDICAID [id number] SP [id number] Problems, Conditions, and Diagnoses Code Display Name Description Problem Type Effective Dates Data Source(s) B35.1 Onychomycosis Onychomycosis Problem 05/26/2021 12:00:00 AM EDT [facility] ([facility] L60.0 Ingrowing nail Ingrowing nail Problem 03/25/2021 12:00:00 AM EDT - 08/29/2021 12:00:00 AM EDT [facility] ([facility] M79.676 Pain in limb Pain in limb Problem 03/25/2021 12:0 0:00 AM EDT - 08/29/2021 12:00:00 AM EDT [facility] ([facility] N76.1 [id number] Subacute vaginitis Problem 10/17/2020 12:00:00 AM EST eCW1 ([facility]) Surgeries/Procedures Procedure Description Date Indications Data Source(s) OFFICE OUTPATIENT VISIT 15 MINUTES 08/20/2021 12:00:00 AM EDT [facility] ([facility] DEBRIDEMENT NAIL ANY METHOD 6/> 05/21/2021 12:00:00 AM EDT [facility] ([facility] OFFICE OUTPATIENT NEW 30 MINUTES 03/12/2021 12:00:00 A M EDT [facility] ([facility] Results ID Date Data Source Basic Metabolic Profile (BMP) 02/20/2021 12:00:00 AM EDT eCW 1 ([facility]) Name Value Range Interpretation Code Description Data Loretta rce(s) Supporting Document(s) 25 7-18 BLOOD UREA NITROGEN eCW1 ([facility]) 0.85 0.55-1.30 CREATININE FOR GFR eCW1 (Counts include 234 beds at the [facility]) 76 70-100 GLUCOSE, FASTING eCW1 ([facility]) 107 98-107 CHLORIDE LEVEL eCW1 ([facility]) > 60.0 >45 GLOMERULAR FILTRATION RATE eCW 1 ([facility]) 4.3 3.5-5.1 POTASSIUM SERUM eCW1 (Pending sale to [facility]) 143 136-145 SODIUM LEVEL eCW1 ([facility]ly [facility]) 8.7 8.8-10.2 CALCIUM LEVEL eCW1 ([facility]) 31 21-32 CARBON DIOXIDE LEVEL eCW1 ([facility]) ID Date Data Source NT-PRO BNP 02/20/2021 12:00:00 AM EDT eCW1 ([facility]) Name Value Range Interpretation Code Description Data Loretta rce(s) Supporting Document(s) 12 <125 NT-PRO BNP eCW1 ([facility]) ID Date Data Source ADM SPINE CERVICAL COMPLETE 02/11/2021 12:00:00 AM EDT eCW1 ([facility]) Name Value Range Interpretation Code Description Data Loretta rce(s) Supporting Document(s) ADM SPINE CERVICAL COMPLETE eC W1 ([facility]) ID Date Data Source LIPID PANEL (CARDIAC RISK) 10/17/2020 12:00:00 AM EST eCW1 ( [facility]) Name Value Range Interpretation Code Description Data Loretta rce(s) Supporting Document(s) Triglyceride [Mass/volume] in Serum or Plasma by calculation 104 <150 TRIGLYCERIDES LEVEL eCW1 ([facility]) Cholesterol [Moles/volume] in Serum or Plasma 205 <200 CHOLESTEROL LEVEL eCW1 ([facility]) Cholesterol in HDL [Moles/volume] in Serum or Plasma 89 >40 HDL CHOLESTEROL eCW1 ([facility]) Cholesterol in LDL [Mass/volume] in Serum or Plasma by calculation 95 <100 LDL CHOLESTEROL eCW1 ([facility]) 116 NON-HDL-C eCW1 (Counts include 234 beds at the [facility]) 2.303 <5 CHOLESTEROL RISK RATIO eCW1 ([facility]) ID Date Data Source FREE T4 & TSH PANEL 10/17/2020 12:00:00 AM EST eCW1 ([facility]) Name Value Range Interpretation Code Description Data Loretta rce(s) Supporting Document(s) 2.090 0.358-3.740 THYROID STIMULATING HORM ONE eCW1 ([facility]) 0.81 0.76-1.46 FREE T4 eCW1 (Counts include 234 beds at the [facility]) ID Date Data Source Comprehensive Metabolic Profile (CMP) 10/17/2020 12:00:00 AM EST eCW1 ([facility]) Name Value Range Interpretation Code Description Data Loretta rce(s) Supporting Document(s) 24 7-18 BLOOD UREA NITROGEN eCW1 ([facility]) 107 70-100 GLUCOSE, FASTING eCW1 ([facility]) 108 98-107 CHLORIDE LEVEL eCW1 ([facility]) 4.3 3.5-5.1 POTASSIUM SERUM eCW1 (Pending sale to [facility]) 1.16 0.55-1.30 CREATININE FOR GFR eCW1 (Counts include 234 beds at the [facility]) 143 136-145 SODIUM LEVEL eCW1 ([facility]) 49.6 >45 GLOMERULAR FILTRATION RATE eCW 1 ([facility]) 31 21-32 CARBON DIOXIDE LEVEL eCW1 ([facility]) 18 7-37 AST/SGOT eCW1 (Counts include 234 beds at the [facility]) 9.4 8.8-10.2 CALCIUM LEVEL eCW1 ([facility]) 27 12-78 ALT/SGPT eCW1 (Counts include 234 beds at the [facility]) 3.8 3.2-5.2 ALBUMIN eCW1 (Counts include 234 beds at the [facility]) 93 45-117 ALKALINE PHOSPHATASE eCW1 ([facility]) 7.7 6.4-8.2 TOTAL PROTEIN eCW1 ([facility]) 0.4 0.2-1.0 BILIRUBIN,TOTAL eCW1 (Pending sale to [facility]) 1.0 1.2-2.2 ALBUMIN/GLOBULIN RATIO eCW1 ([facility]) ID Date Data Source CBC - Complete Blood Count 10/17/2020 12:00:00 AM EST eCW1 ( [facility]) Name Value Range Interpretation Code Description Data Loretta rce(s) Supporting Document(s) 13.7 12.0-15.5 eCW1 (Counts include 234 beds at the [facility]) 7.1 4.0-10.0 eCW1 (Counts include 234 beds at the [facility]) 4.72 4.00-5.40 eCW1 (Counts include 234 beds at the [facility]) 44.6 36.0-47.0 eCW1 (Counts include 234 beds at the [facility]) 30.7 32.0-36.5 eCW1 (Counts include 234 beds at the [facility]) 94.5 80.0-96.0 eCW1 (Counts include 234 beds at the [facility]) 29.0 27.0-33.0 eCW1 (Counts include 234 beds at the [facility]) 13.7 11.5-14.5 eCW1 (Counts include 234 beds at the [facility]) 302 150-450 eCW1 (Counts include 234 beds at the [facility]) ID Date Data Source URINE CULTURE 10/10/2020 12:00:00 AM EST eCW1 ([facility]) Name Value Range Interpretation Code Description Data Loretta rce(s) Supporting Document(s) URINE CULTURE eCW1 ([facility]) Procedure Social History Code Duration Value Status Description Data Source(s ) Smoking 09/01/2021 12:00:00 AM EDT Former Smoker completed Former Smoker eCW1 ([facility]) Smoking 09/01/2021 12:00:00 AM EDT Former Smoker completed Former Smoker eCW1 ([facility]) Smoking 03/25/2021 12:00:00 AM EDT Former Smoker completed Former Smoker eCW1 ([facility]) Smoking 02/26/2021 12:00:00 AM EDT Former Smoker completed Former Smoker eCW1 ([facility]) Smoking 02/26/2021 12:00:00 AM EDT Former Smoker completed Former Smoker eCW1 ([facility]) Smoking 02/20/2021 12:00:00 AM EDT Former Smoker completed Former Smoker eCW1 ([facility]) Smoking 02/20/2021 12:00:00 AM EDT Former Smoker completed Former Smoker eCW1 ([facility]) Smoking 02/11/2021 12:00:00 AM EDT Former Smoker completed Former Smoker eCW1 ([facility]) Smoking 02/11/2021 12:00:00 AM EDT Former Smoker completed Former Smoker eCW1 ([facility]) Smoking 01/12/2021 12:00:00 AM EST Former Smoker completed Former Smoker eCW1 ([facility]) Smoking 10/17/2020 12:00:00 AM EST Former Smoker completed Former Smoker eCW1 ([facility]) Smoking 10/17/2020 12:00:00 AM EST Former Smoker completed Former Smoker eCW1 ([facility]) Smoking 10/17/2020 12:00:00 AM EST Former Smoker completed Former Smoker eCW1 ([facility]) Smoking 10/17/2020 12:00:00 AM EST Former Smoker completed Former Smoker eCW1 ([facility]) Smoking 10/09/2020 12:00:00 AM EST Former Smoker completed Former Smoker eCW1 ([facility]) Vital Signs ID Date Data Source UNK Name Value Range Interpretation Code Description Data Source(s) Body weight 203 [lb_av] 203 [lb_av] eCW1 (Counts include 234 beds at the [facility]) Body height 63 [in_i] 63 [in_i] eCW1 ([facility]) Body mass index (BMI) [Ratio] 35.96 kg/m2 35.96 kg/m2 eCW1 ([facility]) Heart rate 99 /min 99 /min eCW1 (Pending sale to [facility]) Respiratory rate 18 /min 18 /min eCW1 ([facility]) Body temperature 98.4 [degF] 98.4 [degF] eCW1 ( [facility]) Systolic blood pressure 120 mm[Hg] 120 mm[Hg] e CW1 ([facility]) Diastolic blood pressure 80 mm[Hg] 80 mm[Hg] eCW1 ([facility]) Body weight 235 [lb_av] 235 [lb_av] eCW1 (Counts include 234 beds at the [facility]) Body height 63 [in_i] 63 [in_i] eCW1 ([facility]) Body mass index (BMI) [Ratio] 41.62 kg/m2 41.62 kg/m2 eCW1 ([facility]) Heart rate 104 /min 104 /min eCW1 (Pending sale to [facility]) Respiratory rate 18 /min 18 /min eCW1 ([facility]) Body temperature 98.7 [degF] 98.7 [degF] eCW1 ( [facility]) Systolic blood pressure 134 mm[Hg] 134 mm[Hg] e CW1 ([facility]) Diastolic blood pressure 88 mm[Hg] 88 mm[Hg] eCW1 ([facility]) Body mass index (BMI) [Ratio] 35.1 kg/m2 35.1 k g/m2 [facility] ([employer] Body height 63 [in_i] 63 [in_i] [facility] ([facility] 5'3" Body weight 198.00 [lb_av] 198.00 [lb_av] MEDEN T ([facility] Systolic blood pressure 132 mm[Hg] 132 mm[Hg] M EDENT ([facility] Diastolic blood pressure 76 mm[Hg] 76 mm[Hg] [facility] ([facility] Heart rate 89 /min 89 /min [facility] ([facility] Body weight 208 [lb_av] 208 [lb_av] eCW1 (Counts include 234 beds at the [facility]) Body height 63 [in_i] 63 [in_i] eCW1 ([facility]) Body mass index (BMI) [Ratio] 36.84 kg/m2 36.84 kg/m2 eCW1 ([facility]) Heart rate 73 /min 73 /min eCW1 (Pending sale to [facility]) Respiratory rate 18 /min 18 /min eCW1 ([facility]) Body temperature 97.6 [degF] 97.6 [degF] eCW1 ( [facility]) Systolic blood pressure 138 mm[Hg] 138 mm[Hg] e CW1 ([facility]) Diastolic blood pressure 84 mm[Hg] 84 mm[Hg] eCW1 ([facility]) Diastolic blood pressure 82 mm[Hg] 82 mm[Hg] eCW1 ([facility]) Body weight 210 [lb_av] 210 [lb_av] eCW1 (Counts include 234 beds at the [facility]) Body height 63 [in_i] 63 [in_i] eCW1 ([facility]) Body mass index (BMI) [Ratio] 37.20 kg/m2 37.20 kg/m2 eCW1 ([facility]) Heart rate 101 /min 101 /min eCW1 (Pending sale to [facility]) Respiratory rate 18 /min 18 /min eCW1 ([facility]) Body temperature 97.2 [degF] 97.2 [degF] eCW1 ( [facility]) Systolic blood pressure 130 mm[Hg] 130 mm[Hg] e CW1 ([facility]) Body weight 214 [lb_av] 214 [lb_av] eCW1 (Counts include 234 beds at the [facility]) Body height 63 [in_i] 63 [in_i] eCW1 ([facility]) Body mass index (BMI) [Ratio] 37.90 kg/m2 37.90 kg/m2 eCW1 ([facility]) Heart rate 93 /min 93 /min eCW1 (Pending sale to [facility]) Respiratory rate 97.8 /min 97.8 /min eCW1 ([facility]) Body temperature 97.6 [degF] 97.6 [degF] eCW1 ( [facility]) Systolic blood pressure 166 mm[Hg] 166 mm[Hg] e CW1 ([facility]) Diastolic blood pressure 88 mm[Hg] 88 mm[Hg] eCW1 ([facility]) Diastolic blood pressure 76 mm[Hg] 76 mm[Hg] [facility] ([facility] Body mass index (BMI) [Ratio] 35.1 kg/m2 35.1 k g/m2 [facility] ([employer] Systolic blood pressure 132 mm[Hg] 132 mm[Hg] M EDENT ([facility] Body height 63 [in_i] 63 [in_i] [facility] ([facility] 5'3" Body weight 198.00 [lb_av] 198.00 [lb_av] MEDEN T ([facility] Body weight 203.4 [lb_av] 203.4 [lb_av] eCW1 ([facility]) Body height 63 [in_i] 63 [in_i] eCW1 ([facility]) Body mass index (BMI) [Ratio] 36.03 kg/m2 36.03 kg/m2 eCW1 ([facility]) Heart rate 125 /min 125 /min eCW1 (Pending sale to [facility]) Respiratory rate 18 /min 18 /min eCW1 ([facility]) Body temperature 98 [degF] 98 [degF] eCW1 ([facility]) Systolic blood pressure 120 mm[Hg] 120 mm[Hg] e CW1 ([facility]) Diastolic blood pressure 68 mm[Hg] 68 mm[Hg] eCW1 ([facility]) Body weight 198 [lb_av] 198 [lb_av] eCW1 (Counts include 234 beds at the [facility]) Body height 63 [in_i] 63 [in_i] eCW1 ([facility]) Body mass index (BMI) [Ratio] 35.07 kg/m2 35.07 kg/m2 eCW1 ([facility]) Heart rate 123 /min 123 /min eCW1 (Pending sale to [facility]) Respiratory rate 18 /min 18 /min eCW1 ([facility]) Body temperature 98.4 [degF] 98.4 [degF] eCW1 ( [facility]) Systolic blood pressure 132 mm[Hg] 132 mm[Hg] e CW1 ([facility]) Diastolic blood pressure 76 mm[Hg] 76 mm[Hg] eCW1 ([facility]) Patient Treatment Plan of Care Planned Activity Planned Date Details Description Data Source (s) meloxicam 15 MG Oral Tablet 09/01/2021 12:00:00 AM EDT eCW1 ([facility]) meloxicam 15 MG Oral Tablet 09/01/2021 12:00:00 AM EDT eCW1 ([facility]) Spironolactone 25 MG Oral Tablet 02/26/2021 12:00:00 AM EDT eCW1 ([facility]) Spironolactone 25 MG Oral Tablet 02/26/2021 12:00:00 AM EDT eCW1 ([facility]) Furosemide 40 MG Oral Tablet 02/20/2021 12:00:00 AM EDT eCW1 ([facility]) Furosemide 40 MG Oral Tablet 02/20/2021 12:00:00 AM EDT [email or web address] ([facility]) Acetaminophen 300 MG / Codeine Phosphate 30 MG Oral Ta blet 02/11/2021 12:00:00 AM EDT [email or web address] (Counts include 234 beds at the [facility]) Acetaminophen 300 MG / Codeine Phosphate 30 MG Oral Ta blet 02/11/2021 12:00:00 AM EDT [email or web address] (Counts include 234 beds at the [facility]) carbamide peroxide 65 MG/ML Otic Solution [Debrox] 01/12/2021 12 :00:00 AM EST [email or web address] ([facility]) Acetaminophen 300 MG / Codeine Phosphate 30 MG Oral Ta blet 01/12/2021 12:00:00 AM EST [email or web address] (Counts include 234 beds at the [facility]) Calcium 500 + D 500-200 MG-UNIT 12/12/2020 12:00:00 AM EST [email or web address] ([facility]) Calcium 500 + D 500-200 MG-UNIT 12/12/2020 12:00:00 AM EST [email or web address] ([facility]) Calcium 500 + D 500-200 MG-UNIT 12/12/2020 12:00:00 AM EST [email or web address] ([facility])
[2021-09-27] MEDS ORDERED: MELO15TA28 (16:54)
[2021-09-27] MEDS ORDERED: FLUTISP (16:54)
--- OUTSIDE RECORDS SUMMARY | 2021-09-27 18:35 | CCD ---
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 If you continue you may have access to information: Regarding HIV / AIDS; Provided by facilities licensed or operated by the [facility] Office of Mental Health; or Provided by the [facility] Office for People With Developmental Disabilities. If such information is present, then the following [facility] mandated warning applies: This information has [...] law may result in a fine or long term sentence or both. A general authorization for the release of medical or other information is NOT sufficient authorization for further disc losure. Family History Family Member Name Family Member Gender Family Member Status Date o f Status Description Data Source(s) Unknown Unknown Problem MEDENT ([facility]) Reports that they were healthy Unknown Unknown Problem MEDENT ([facility]) Encounters Encounter Providers Location Date Indications Data Source(s ) Unknown [address] [facility] [address] 09/02/2021 12:00:00 AM EDT eCW1 ([facility]) Outpatient [address] [facility] [address] 09/01/2021 12:00:00 AM EDT eCW1 ([facility]) Outpatient Attender: SAMUEL PAINTING [facility] Office 07/30 08:45:00 AM EDT MEDENT ([facility] Outpatient [address] [place] [address] 03/25/2021 12:00:00 AM EDT eCW1 ([facility]) Outpatient Attender: SAMUEL PAINTING [facility] Office 02/26 10:15:00 AM EDT MEDENT ([facility] Office Visit, Est Pt., Level 3 PC [address] [place] [address] 02/26/2021 12:00:00 AM EDT eCW1 ([facility]) Office Visit, Est Pt., Level 3 PC [address] [place] [address] 02/20/2021 12:00:00 AM EDT eCW1 ([facility]) Unknown [address] [facility] [address] 02/20/2021 12:00:00 AM EDT eCW1 ([facility]) Unknown [address] [facility] [address] 02/20/2021 12:00:00 AM EDT eCW1 ([facility]) Unknown [address] [facility] [place] [address] 02/17/2021 12:00:00 AM EDT [facility]) Office Visit, Est Pt., Level 3 PC [address] [place] [address] 02/11/2021 12:00:00 AM EDT eCW1 ([facility]) Unknown [address] [facility] [place] [address] 02/09/2021 12:00:00 AM EDT [facility]CW1 [facility] Unknown [address] [facility] [place] [address] 12/12/2020 12:00:00 AM EST eCW1 ([facility]) Unknown [address] [facility] [address] 12/10/2020 12:00:00 AM EST eCW1 ([facility]) Outpatient [address] [facility] [address] 10/17/2020 12:00:00 AM EST eCW1 ([facility]) Outpatient [address] [facility] [place] [address] 10/10/2020 12:00:00 AM EST eCW1 ([facility]) Unknown [address] [facility] [place] [address] 10/09/2020 12:00:00 AM EST eCW1 ([facility]) Immunizations Vaccine Date Status Description Data Source(s) COVID-19 VACCINE Pfizer 08/03/2021 12:00:00 AM EDT completed [facility] Vaccine Series Complete: YESThis Data wa s Submitted to [facility] Via [employer]. COVID-19 VACCINE Pfizer 02/25/2021 12:00:00 AM EDT completed [facility] Vaccine Series Complete: YESThis Data wa s Submitted to [facility] Via [employer]. COVID-19 VACCINE Pfizer 02/04/2021 12:00:00 AM EST completed [facility] Vaccine Series Complete: NOThis Data was Submitted to [facility] Via [employer]. DIPHTHERIA,PERTUSSIS(ACELLULAR),TETANUS VACCINE/PF 12:00:00 AM EST completed [facility] INFLUENZA VIRUS VACCINE QUADRIVAL SPLIT 2019-21(65 YR UP)/PF 12/27/2020 12:00:00 AM EST completed [facility] Medications Medication Brand Name Start Date Product Form Dose Route Admi nistrative Instructions Pharmacy Instructions Status Indications Reaction Description Data Source(s) Fluticasone propionate 0.05 MG/ACTUAT Metered Dose Jose al [place] 50 mcg/actuation FLUTICASONE PROPIONATE 09/01/2021 12:00:00 AM [...] {tablet} active Meloxicam 1 5 MG eCW1 ([facility]) meloxicam 15 MG Oral Tablet Meloxicam 15 MG Meloxicam 15 MG 09/01/2021 12:00:00 AM EDT 1.0 {tablet} active Meloxicam 1 5 MG eCW1 ([facility]) Acetaminophen 325 MG / Hydrocodone Bitartrate 5 [...] {tablet} active Spironolact one 25 MG eCW1 ([facility]) Spironolactone 25 MG Oral Tablet Spironolactone 25 MG 2020 12:00:00 AM EDT 1.0 {tablet} active Spironolact one 25 MG eCW1 ([facility]) Spironolactone 25 MG Oral Tablet Spironolactone 25 MG 2020 12:00:00 AM EDT 1.0 {tablet} active Spironolact one 25 MG eCW1 ([facility]) Spironolactone 25 MG Oral Tablet Spironolactone 25 MG 2020 12:00:00 AM EDT 1.0 {tablet} active Spironolact one 25 MG eCW1 ([facility]) Spironolactone 25 MG Oral Tablet Spironolactone 25 MG 2020 12:00:00 AM EDT 1.0 {tablet} active Spironolact one 25 MG eCW1 ([facility]) Furosemide 40 MG Oral Tablet Furosemide 40 MG 02/20/2021 12:00:00 A M EDT 1.0 {tablet} active Furosemide 40 MG eCW1 ( [facility]) 40 mg 02/20/2021 12:00:00 AM EDT tablet 7 TAKE ONE TABLET BY MOUTH EVERY DAY FOR 7 DAYS TAKE ONE TABLET BY MOUTH EVERY DAY FOR 7 DAYS SOLD: 02/20/2021 [facility] Furosemide 40 MG Oral Tablet Furosemide 40 MG 02/20/2021 12:00:00 A M EDT 1.0 {tablet} active Furosemide 40 MG eCW1 ( [facility]) Acetaminophen 300 MG / Codeine Phosphate 30 MG Oral Tablet Acetaminophen-Codeine #3 300-30 MG Acetaminophen-Codeine #3 300-30 MG 02/11/2021 12:00:00 AM EDT 1.0 {tablet_as_needed} suspended Acetaminoph en-Codeine #3 300-30 MG eCW1 ([facility]) Acetaminophen 300 MG / Codeine Phosphate 30 MG Oral Tablet Acetaminophen-Codeine #3 300-30 MG Acetaminophen-Codeine #3 300-30 MG 02/11/2021 12:00:00 AM EDT 1.0 {tablet_as_needed} active Acetaminophen -Codeine #3 300-30 MG eCW1 ([facility]) Acetaminophen 300 MG / Codeine Phosphate 30 MG Oral Tablet Acetaminophen-Codeine #3 300-30 MG Acetaminophen-Codeine #3 300-30 MG 02/11/2021 12:00:00 AM EDT 1.0 {tablet_as_needed} active Acetaminophen -Codeine #3 300-30 MG eCW1 ([facility]) Acetaminophen 300 MG / Codeine Phosphate 30 MG Oral Tablet Acetaminophen-Codeine #3 300-30 MG Acetaminophen-Codeine #3 300-30 MG 02/11/2021 12:00:00 AM EDT 1.0 {tablet_as_needed} active Acetaminophen -Codeine #3 300-30 MG eCW1 ([facility]) Acetaminophen 300 MG / Codeine Phosphate 30 MG Oral Tablet Acetaminophen-Codeine #3 300-30 MG Acetaminophen-Codeine #3 300-30 MG 02/11/2021 12:00:00 AM EDT 1.0 {tablet_as_needed} active Acetaminophen -Codeine #3 300-30 MG eCW1 ([facility]) 300-30 mg 02/11/2021 12:00:00 AM EDT tablet [...] suspended Acetaminoph en-Codeine #3 300-30 MG eCW1 ([facility]) Acetaminophen 300 MG / Codeine Phosphate 30 MG Oral Tablet Acetaminophen-Codeine #3 300-30 MG Acetaminophen-Codeine #3 300-30 MG 02/11/2021 12:00:00 AM EDT 1.0 {tablet_as_needed} active Acetaminophen -Codeine #3 300-30 MG eCW1 ([facility]) Acetaminophen 300 MG / Codeine Phosphate 30 MG Oral Tablet Acetaminophen-Codeine #3 300-30 MG Acetaminophen-Codeine #3 300-30 MG 02/11/2021 12:00:00 AM EDT 1.0 {tablet_as_needed} active Acetaminophen -Codeine #3 300-30 MG eCW1 ([facility]) Acetaminophen 300 MG / Codeine Phosphate 30 MG Oral Tablet Acetaminophen-Codeine #3 300-30 MG Acetaminophen-Codeine #3 300-30 MG 02/11/2021 12:00:00 AM EDT 1.0 {tablet_as_needed} active Acetaminophen -Codeine #3 300-30 MG eCW1 ([facility]) carbamide peroxide 65 MG/ML Otic Solution [Debrox] Debrox 6. 5 % Debrox 6.5 % 01/12/2021 12:00:00 AM EST active Debrox 6.5 % eCW1 ([facility]) carbamide peroxide 65 MG/ML Otic Solution [Debrox] Debrox 6. 5 % Debrox 6.5 % 01/12/2021 12:00:00 AM EST active Debrox 6.5 % eCW1 ([facility]) Acetaminophen 300 MG / Codeine Phosphate 30 MG Oral Tablet Acetaminophen-Codeine #3 300-30 MG Acetaminophen-Codeine #3 300-30 MG 01/12/2021 12:00:00 AM EST 1.0 {tablet_as_needed} active Acetamino phen-Codeine #3 300-30 MG eCW1 ([facility]) Acetaminophen 300 MG / Codeine Phosphate 30 MG Oral Tablet Acetaminophen-Codeine #3 300-30 MG Acetaminophen-Codeine #3 300-30 MG 01/12/2021 12:00:00 AM EST 1.0 {tablet_as_needed} active Acetamino phen-Codeine #3 300-30 MG eCW1 ([facility]) 6.5 % 01/12/2021 12:00:00 AM EST drops 15 INSTILL 5 DROPS INTO BOTH EARS AT BEDTIME INSTILL 5 DROPS INTO BOTH EARS AT BEDTIME SOLD: 01/12/2021 [facility] Acetaminophen 300 MG / Codeine Phosphate 30 MG Oral Tablet Acetaminophen-Codeine #3 300-30 MG Acetaminophen-Codeine #3 300-30 MG 01/12/2021 12:00:00 AM EST 1.0 {tablet_as_needed} active Acetamino phen-Codeine #3 300-30 MG eCW1 ([facility]) Acetaminophen 300 MG / Codeine Phosphate 30 MG Oral Tablet Acetaminophen-Codeine #3 300-30 MG Acetaminophen-Codeine #3 300-30 MG 01/12/2021 12:00:00 AM EST 1.0 {tablet_as_needed} active Acetamino phen-Codeine #3 300-30 MG eCW1 ([facility]) Acetaminophen 300 MG / Codeine Phosphate 30 MG Oral Tablet Acetaminophen-Codeine #3 300-30 MG Acetaminophen-Codeine #3 300-30 MG 01/12/2021 12:00:00 AM EST 1.0 {tablet_as_needed} active Acetamino phen-Codeine #3 300-30 MG eCW1 ([facility]) carbamide peroxide 65 MG/ML Otic Solution [Debrox] Debrox 6. 5 % Debrox 6.5 % 01/12/2021 12:00:00 AM EST active Debrox 6.5 % eCW1 ([facility]) Acetaminophen 300 MG / Codeine Phosphate 30 MG Oral Tablet Acetaminophen-Codeine #3 300-30 MG Acetaminophen-Codeine #3 300-30 MG 01/12/2021 12:00:00 AM EST 1.0 {tablet_as_needed} suspended Acetami nophen-Codeine #3 300-30 MG eCW1 ([facility]) Acetaminophen 300 MG / Codeine Phosphate 30 MG Oral Tablet Acetaminophen-Codeine #3 300-30 MG Acetaminophen-Codeine #3 300-30 MG 01/12/2021 12:00:00 AM EST 1.0 {tablet_as_needed} active Acetamino phen-Codeine #3 300-30 MG eCW1 ([facility]) carbamide peroxide 65 MG/ML Otic Solution [Debrox] Debrox 6. 5 % Debrox 6.5 % 01/12/2021 12:00:00 AM EST active Debrox 6.5 % eCW1 ([facility]) carbamide peroxide 65 MG/ML Otic Solution [Debrox] Debrox 6. 5 % Debrox 6.5 % 01/12/2021 12:00:00 AM EST active Debrox 6.5 % eCW1 ([facility]) Acetaminophen 300 MG / Codeine Phosphate 30 MG Oral Tablet Acetaminophen-Codeine #3 300-30 MG Acetaminophen-Codeine #3 300-30 MG 01/12/2021 12:00:00 AM EST 1.0 {tablet_as_needed} active Acetamino phen-Codeine #3 300-30 MG eCW1 ([facility]) carbamide peroxide 65 MG/ML Otic Solution [Debrox] Debrox 6. 5 % Debrox 6.5 % 01/12/2021 12:00:00 AM EST active Debrox 6.5 % eCW1 ([facility]) carbamide peroxide 65 MG/ML Otic Solution [Debrox] Debrox 6. 5 % Debrox 6.5 % 01/12/2021 12:00:00 AM EST active Debrox 6.5 % eCW1 ([facility]) 300-30 mg 01/12/2021 12:00:00 AM EST tablet [...] suspended Acetami nophen-Codeine #3 300-30 MG eCW1 ([facility]) Acetaminophen 300 MG / Codeine Phosphate 30 MG Oral Tablet Acetaminophen-Codeine #3 300-30 MG Acetaminophen-Codeine #3 300-30 MG 01/12/2021 12:00:00 AM EST 1.0 {tablet_as_needed} active Acetamino phen-Codeine #3 300-30 MG eCW1 ([facility]) carbamide peroxide 65 MG/ML Otic Solution [Debrox] Debrox 6. 5 % Debrox 6.5 % 01/12/2021 12:00:00 AM EST active Debrox 6.5 % eCW1 ([facility]) carbamide peroxide 65 MG/ML Otic Solution [Debrox] Debrox 6. 5 % Debrox 6.5 % 01/12/2021 12:00:00 AM EST active Debrox 6.5 % eCW1 ([facility]) carbamide peroxide 65 MG/ML Otic Solution [Debrox] Debrox 6. 5 % Debrox 6.5 % 01/12/2021 12:00:00 AM EST active Debrox 6.5 % eCW1 ([facility]) 500 mg(1,250mg) -200 unit 12/13/2020 12:00:00 AM EST tablet 30 TAKE ONE TABLET BY MOUTH EVERY DAY WITH MEAL TAKE ONE TABLET BY MOUTH EVERY DAY WITH MEAL SOLD: 12/17/2020 [facility] Calcium 500 + D 500-200 MG-UNIT Calcium 500 + D 500-200 MG-U NIT 12/12/2020 12:00:00 AM EST 1.0 {tablet_with_a_meal} active Calcium 500 + D 500- 200 MG-UNIT eCW1 ([facility]) Calcium 500 + D 500-200 MG-UNIT Calcium 500 + D 500-200 MG-U NIT 12/12/2020 12:00:00 AM EST 1.0 {tablet_with_a_meal} active Calcium 500 + D 500- 200 MG-UNIT eCW1 ([facility]) Calcium 500 + D 500-200 MG-UNIT Calcium 500 + D 500-200 MG-U NIT 12/12/2020 12:00:00 AM EST 1.0 {tablet_with_a_meal} active Calcium 500 + D 500- 200 MG-UNIT eCW1 ([facility]) Calcium 500 + D 500-200 MG-UNIT Calcium 500 + D 500-200 MG-U NIT 12/12/2020 12:00:00 AM EST 1.0 {tablet_with_a_meal} active Calcium 500 + D 500- 200 MG-UNIT eCW1 ([facility]) Calcium 500 + D 500-200 MG-UNIT Calcium 500 + D 500-200 MG-U NIT 12/12/2020 12:00:00 AM EST 1.0 {tablet_with_a_meal} active Calcium 500 + D 500- 200 MG-UNIT eCW1 ([facility]) Calcium 500 + D 500-200 MG-UNIT Calcium 500 + D 500-200 MG-U NIT 12/12/2020 12:00:00 AM EST 1.0 {tablet_with_a_meal} active Calcium 500 + D 500- 200 MG-UNIT eCW1 ([facility]) Calcium 500 + D 500-200 MG-UNIT Calcium 500 + D 500-200 MG-U NIT 12/12/2020 12:00:00 AM EST 1.0 {tablet_with_a_meal} active Calcium 500 + D 500- 200 MG-UNIT eCW1 ([facility]) Calcium 500 + D 500-200 MG-UNIT Calcium 500 + D 500-200 MG-U NIT 12/12/2020 12:00:00 AM EST 1.0 {tablet_with_a_meal} active Calcium 500 + D 500- 200 MG-UNIT eCW1 ([facility]) Calcium 500 + D 500-200 MG-UNIT Calcium 500 + D 500-200 MG-U NIT 12/12/2020 12:00:00 AM EST 1.0 {tablet_with_a_meal} active Calcium 500 + D 500- 200 MG-UNIT eCW1 ([facility]) Calcium 500 + D 500-200 MG-UNIT Calcium 500 + D 500-200 MG-U NIT 12/12/2020 12:00:00 AM EST 1.0 {tablet_with_a_meal} active Calcium 500 + D 500- 200 MG-UNIT eCW1 ([facility]) Nystatin 100 UNT/MG Topical Powder 100,000 unit/gram [...] 500 + D 500- 200 MG-UNIT eCW1 ([facility]) 50 mcg (2,000 unit) 12/11/2020 12:00:00 AM [...] EST suspended Mupir ocin 2 % eCW1 ([facility]) Fluconazole 150 MG Oral Tablet [Diflucan] Diflucan 150 MG Di flucan 150 MG 10/10/2020 12:00:00 AM EST 1.0 {tablet} suspended Diflucan 150 MG eCW1 ([facility]) Mupirocin 0.02 MG/MG Topical Ointment Mupirocin 2 % Mupiroci n 2 % 10/10/2020 12:00:00 AM EST suspended Mupir ocin 2 % eCW1 ([facility]) Fluconazole 150 MG Oral Tablet [Diflucan] Diflucan 150 MG Di flucan 150 MG 10/10/2020 12:00:00 AM EST 1.0 {tablet} suspended Diflucan 150 MG eCW1 ([facility]) 2 % 10/10/2020 12:00:00 AM EST ointment 22 APPLY THIN LAYER TO AFFECTED TOES THREE TIMES A DAY FOR 7 DAYS APPLY THIN LAYER TO AFFECTED TOES THREE TIMES A DAY FOR 7 DAYS SOLD: 10/10/2020 [facility] Fluconazole 150 MG Oral Tablet [Diflucan] Diflucan 150 MG Di flucan 150 MG 10/10/2020 12:00:00 AM EST 1.0 {tablet} suspended Diflucan 150 MG eCW1 ([facility]) Mupirocin 0.02 MG/MG Topical Ointment Mupirocin 2 % Mupiroci n 2 % 10/10/2020 12:00:00 AM EST suspended Mupir ocin 2 % eCW1 ([facility]) Fluconazole 150 MG Oral Tablet [Diflucan] Diflucan 150 MG Di flucan 150 MG 10/10/2020 12:00:00 AM EST 1.0 {tablet} suspended Diflucan 150 MG eCW1 ([facility]) 150 mg 10/10/2020 12:00:00 AM EST tablet [...] EST suspended Mupir ocin 2 % eCW1 ([facility]) 2 % 10/10/2020 12:00:00 AM EST ointment [...] INTO BOTH NOSTRILS ONCE DAILY SOLD: 10/03/2020 [facility] 10 mg 08/05/2020 12:00:00 AM [...] type / Coverage type Policy ID Covered green party ID Covered green party's relationship to jane Policy Jane Plan Information [facility] DUAL COMPLETE [id number] Patient is Insured [id number] [facility] COMMUNITY PLAN UNAVAILABLE Patient is Insured UNAVAILABLE MEDICARE [id number] Patient is Insured [id number] MEDICARE [id number] Patient is Insured [id number] MEDICAID [id number] Patient is Insured A [id number] [facility] DUAL COMPLETE NOTNEEDED Patient is Insured NOTNEEDED MEDICARE [id number] Patient is Insured [id number] [facility] COMMUNITY PLAN [id number] Patient is Insured [id number] [facility] Maintenance Organization ([facility]) [id number] Self [id number] [facility] ([facility]) [id number] Self [id number] [facility] Maintenance [facility] ([facility]) [id number] Self [id number] [facility] Maintenance [facility] ([facility]) [id number] Self [id number] [employer] [id number] SP [id number] UN COMMUNITY PLAN [facility] [id number] SP [id number] [facility] [id number] SP [id number] [facility] O [id number] S [id number] [facility] [id number] SP [id number] UN COMMUNITY PLAN [facility] [id number] SP [id number] [facility] Maintenance [facility] ([facility]) [id number] Self [id number] [facility] [id number] [facility] [id number] [facility] [id number] [facility] [id number] [facility] [id number] [facility]) O [id number] S [id number] [facility] [id number] SP [id number] ANSI-Medicaid [id number] ANSI-Medicaid [id number] MEDICARE [id number] SP [id number] [facility] [id number] SP [id number] ANSI-Medicaid [id number] ANSI-Medicaid [id number] [facility] Maintenance Organization ([facility]) [id number] Self [id number] [facility]) O [id number] S [id number] [facility] Maintenance Organization ([facility]) [id number] Self [id number] [facility] Maintenance Organization (O) [id number] Self [id number] [facility] ([facility]) [id number] Self [id number] [facility] ([facility]) [id number] Self [id number] [facility] ([facility]) [id number] Self [id number] [facility] ([facility]) [id number] Self [id number] [facility] ([facility]) [id number] Self [id number] [facility] ([facility]) [id number] Self [id number] PREFERRED MUT INS CO NO FAULT [id number] [facility] ([facility]) [id number] Self PREFERRED MUT INS CO NO FAULT [id number] [facility] Maintenance Organization ([facility]) [id number] Self UN COMMUNITY PLAN MCDO [id number] SP [id number] [facility] COMMUNITY PLAN MCDO [id number] SP [id number] [facility] P [id number] S [id number] [facility]) P [id number] S [id number] [place] [id number] SP [id number] [employer] G[employer] [id number] SP [id number] [employer] G[employer] [id number] SP [id number] [employer] G[employer] [id number] SP [id number] [employer] G[employer] [id number] SP [id number] EMEDNY [id number] SP [id number] HU[employer] GOLD SEE INS CARD SP SEE I NS CARD MEDICARE [id number] SP [id number] [employer] GOLD [id number] SP [id number] [employer] HMO O [id number] S [id number] MEDICAID M [id number] S [id number] MEDICAID [id number] SP [id number] Problems, Conditions, and Diagnoses Code Display Name [...] AM EDT [facility] ([facility] N76.1 [id number] Subacute vaginitis Problem 10/17/2020 12:00:00 AM EST eCW1 ([facility]) Surgeries/Procedures Procedure Description Date Indications Data Source(s) OFFICE OUTPATIENT VISIT 15 MINUTES 08/20/2021 12:00:00 AM EDT [facility] ([facility] DEBRIDEMENT NAIL ANY METHOD 6/> 05/21/2021 12:00:00 AM EDT [facility] ([facility] OFFICE OUTPATIENT NEW 30 MINUTES 03/12/2021 12:00:00 A M EDT [facility] ([facility] Results ID Date Data Source Basic Metabolic Profile (BMP) 02/20/2021 12:00:00 AM EDT eCW 1 ([facility]) Name Value Range Interpretation Code Description Data Loretta rce(s) Supporting Document(s) 25 7-18 BLOOD UREA NITROGEN eCW1 ([facility]) 0.85 0.55-1.30 CREATININE FOR GFR eCW1 ([facility]) 76 70-100 GLUCOSE, FASTING eCW1 ([facility]) 107 98-107 CHLORIDE LEVEL eCW1 ([facility]) > 60.0 >45 GLOMERULAR FILTRATION RATE eCW 1 ([facility]) 4.3 3.5-5.1 POTASSIUM SERUM eCW1 ([facility]) 143 136-145 SODIUM LEVEL eCW1 ([facility]) 8.7 8.8-10.2 CALCIUM LEVEL eCW1 ([facility]) 31 21-32 CARBON DIOXIDE LEVEL eCW1 ([facility]) ID Date Data Source NT-PRO BNP 02/20/2021 12:00:00 AM EDT eCW1 ([facility]) Name Value Range Interpretation Code Description Data Loretta rce(s) Supporting Document(s) 12 <125 NT-PRO BNP eCW1 ([facility]) ID Date Data Source ADM SPINE CERVICAL COMPLETE 02/11/2021 12:00:00 AM EDT eCW1 ([facility]) Name Value Range Interpretation Code Description Data Loretta rce(s) Supporting Document(s) ADM SPINE CERVICAL COMPLETE eC W1 ([facility]) ID Date Data Source LIPID PANEL (CARDIAC RISK) 10/17/2020 12:00:00 AM EST eCW1 ( [facility]) Name Value Range Interpretation Code Description Data Loretta rce(s) Supporting Document(s) Triglyceride [Mass/volume] in Serum or Plasma by calculation 104 <150 TRIGLYCERIDES LEVEL eCW1 ([facility]) Cholesterol [Moles/volume] in Serum or Plasma 205 <200 CHOLESTEROL LEVEL eCW1 ([facility]) Cholesterol in HDL [Moles/volume] in Serum or Plasma 89 >40 HDL CHOLESTEROL eCW1 ([facility]) Cholesterol in LDL [Mass/volume] in Serum or Plasma by calculation 95 <100 LDL CHOLESTEROL eCW1 ([facility]) 116 NON-HDL-C eCW1 ([facility]) 2.303 <5 CHOLESTEROL RISK RATIO eCW1 ([facility]) ID Date Data Source FREE T4 & TSH PANEL 10/17/2020 12:00:00 AM EST eCW1 ([facility]) Name Value Range Interpretation Code Description Data Loretta rce(s) Supporting Document(s) 2.090 0.358-3.740 THYROID STIMULATING HORM ONE eCW1 ([facility]) 0.81 0.76-1.46 FREE T4 eCW1 ([facility]) ID Date Data Source Comprehensive Metabolic Profile (CMP) 10/17/2020 12:00:00 AM EST eCW1 ([facility]) Name Value Range Interpretation Code Description Data Loretta rce(s) Supporting Document(s) 24 7-18 BLOOD UREA NITROGEN eCW1 ([facility]) 107 70-100 GLUCOSE, FASTING eCW1 ([facility]) 108 98-107 CHLORIDE LEVEL eCW1 ([facility]) 4.3 3.5-5.1 POTASSIUM SERUM eCW1 ([facility]) 1.16 0.55-1.30 CREATININE FOR GFR eCW1 ([facility]) 143 136-145 SODIUM LEVEL eCW1 ([facility]) 49.6 >45 GLOMERULAR FILTRATION RATE eCW 1 ([facility]) 31 21-32 CARBON DIOXIDE LEVEL eCW1 ([facility]) 18 7-37 AST/SGOT eCW1 ([facility]) 9.4 8.8-10.2 CALCIUM LEVEL eCW1 ([facility]) 27 12-78 ALT/SGPT eCW1 ([facility]) 3.8 3.2-5.2 ALBUMIN eCW1 ([facility]) 93 45-117 ALKALINE PHOSPHATASE eCW1 ([facility]) 7.7 6.4-8.2 TOTAL PROTEIN eCW1 ([facility]) 0.4 0.2-1.0 BILIRUBIN,TOTAL eCW1 ([facility]) 1.0 1.2-2.2 ALBUMIN/GLOBULIN RATIO eCW1 ([facility]) ID Date Data Source CBC - Complete Blood Count 10/17/2020 12:00:00 AM EST eCW1 ( [facility]) Name Value Range Interpretation Code Description Data Loretta rce(s) Supporting Document(s) 13.7 12.0-15.5 eCW1 ([facility]) 7.1 4.0-10.0 eCW1 ([facility]) 4.72 4.00-5.40 eCW1 ([facility]) 44.6 36.0-47.0 eCW1 ([facility]) 30.7 32.0-36.5 eCW1 ([facility]) 94.5 80.0-96.0 eCW1 ([facility]) 29.0 27.0-33.0 eCW1 ([facility]) 13.7 11.5-14.5 eCW1 ([facility]) 302 150-450 eCW1 ([facility]) ID Date Data Source URINE CULTURE 10/10/2020 12:00:00 AM EST eCW1 ([facility]) Name Value Range Interpretation Code Description Data Loretta rce(s) Supporting Document(s) URINE CULTURE eCW1 ([facility]) Procedure Social History Code Duration Value Status Description Data Source(s ) Smoking 09/01/2021 12:00:00 AM EDT Former Smoker completed Former Smoker eCW1 ([facility]) Smoking 09/01/2021 12:00:00 AM EDT Former Smoker completed Former Smoker eCW1 ([facility]) Smoking 03/25/2021 12:00:00 AM EDT Former Smoker completed Former Smoker eCW1 ([facility]) Smoking 02/26/2021 12:00:00 AM EDT Former Smoker completed Former Smoker eCW1 ([facility]) Smoking 02/26/2021 12:00:00 AM EDT Former Smoker completed Former Smoker eCW1 ([facility]) Smoking 02/20/2021 12:00:00 AM EDT Former Smoker completed Former Smoker eCW1 ([facility]) Smoking 02/20/2021 12:00:00 AM EDT Former Smoker completed Former Smoker eCW1 ([facility]) Smoking 02/11/2021 12:00:00 AM EDT Former Smoker completed Former Smoker eCW1 ([facility]) Smoking 02/11/2021 12:00:00 AM EDT Former Smoker completed Former Smoker eCW1 ([facility]) Smoking 01/12/2021 12:00:00 AM EST Former Smoker completed Former Smoker eCW1 ([facility]) Smoking 10/17/2020 12:00:00 AM EST Former Smoker completed Former Smoker eCW1 ([facility]) Smoking 10/17/2020 12:00:00 AM EST Former Smoker completed Former Smoker eCW1 ([facility]) Smoking 10/17/2020 12:00:00 AM EST Former Smoker completed Former Smoker eCW1 ([facility]) Smoking 10/17/2020 12:00:00 AM EST Former Smoker completed Former Smoker eCW1 ([facility]) Smoking 10/09/2020 12:00:00 AM EST Former Smoker completed Former Smoker eCW1 ([facility]) Vital Signs ID Date Data Source UNK Name Value Range Interpretation Code Description Data Source(s) Body weight 203 [lb_av] 203 [lb_av] eCW1 ([facility]) Body height 63 [in_i] 63 [in_i] eCW1 ([facility]) Body mass index (BMI) [Ratio] 35.96 kg/m2 35.96 kg/m2 eCW1 ([facility]) Heart rate 99 /min 99 /min eCW1 ([facility]) Respiratory rate 18 /min 18 /min eCW1 ([facility]) Body temperature 98.4 [degF] 98.4 [degF] eCW1 ( [facility]) Systolic blood pressure 120 mm[Hg] 120 mm[Hg] e CW1 ([facility]) Diastolic blood pressure 80 mm[Hg] 80 mm[Hg] eCW1 ([facility]) Body weight 235 [lb_av] 235 [lb_av] eCW1 ([facility]) Body height 63 [in_i] 63 [in_i] eCW1 ([facility]) Body mass index (BMI) [Ratio] 41.62 kg/m2 41.62 kg/m2 eCW1 ([facility]) Heart rate 104 /min 104 /min eCW1 ([facility]) Respiratory rate 18 /min 18 /min eCW1 ([facility]) Body temperature 98.7 [degF] 98.7 [degF] eCW1 ( [facility]) Systolic blood pressure 134 mm[Hg] 134 mm[Hg] e CW1 ([facility]) Diastolic blood pressure 88 mm[Hg] 88 mm[Hg] eCW1 ([facility]) Body mass index (BMI) [Ratio] 35.1 kg/m2 [...] Body weight 208 [lb_av] 208 [lb_av] eCW1 ([facility]) Body height 63 [in_i] 63 [in_i] eCW1 ([facility]) Body mass index (BMI) [Ratio] 36.84 kg/m2 36.84 kg/m2 eCW1 ([facility]) Heart rate 73 /min 73 /min eCW1 ([facility]) Respiratory rate 18 /min 18 /min eCW1 ([facility]) Body temperature 97.6 [degF] 97.6 [degF] eCW1 ( [facility]) Systolic blood pressure 138 mm[Hg] 138 mm[Hg] e CW1 ([facility]) Diastolic blood pressure 84 mm[Hg] 84 mm[Hg] eCW1 ([facility]) Body weight 210 [lb_av] 210 [lb_av] eCW1 ([facility]) Diastolic blood pressure 82 mm[Hg] 82 mm[Hg] eCW1 ([facility]) Body height 63 [in_i] 63 [in_i] eCW1 ([facility]) Body mass index (BMI) [Ratio] 37.20 kg/m2 37.20 kg/m2 eCW1 ([facility]) Heart rate 101 /min 101 /min eCW1 ([facility]) Respiratory rate 18 /min 18 /min eCW1 ([facility]) Body temperature 97.2 [degF] 97.2 [degF] eCW1 ( [facility]) Systolic blood pressure 130 mm[Hg] 130 mm[Hg] e CW1 ([facility]) Body weight 214 [lb_av] 214 [lb_av] eCW1 ([facility]) Body height 63 [in_i] 63 [in_i] eCW1 ([facility]) Body mass index (BMI) [Ratio] 37.90 kg/m2 37.90 kg/m2 eCW1 ([facility]) Heart rate 93 /min 93 /min eCW1 ([facility]) Respiratory rate 97.8 /min 97.8 /min eCW1 ([facility]) Body temperature 97.6 [degF] 97.6 [degF] eCW1 ( [facility]) Systolic blood pressure 166 mm[Hg] 166 mm[Hg] e CW1 ([facility]) Diastolic blood pressure 88 mm[Hg] 88 mm[Hg] eCW1 ([facility]) Diastolic blood pressure 76 mm[Hg] 76 mm[Hg] [...] Body weight 203.4 [lb_av] 203.4 [lb_av] eCW1 ([facility]) Body height 63 [in_i] 63 [in_i] eCW1 ([facility]) Body mass index (BMI) [Ratio] 36.03 kg/m2 36.03 kg/m2 eCW1 ([facility]) Heart rate 125 /min 125 /min eCW1 ([facility]) Respiratory rate 18 /min 18 /min eCW1 ([facility]) Body temperature 98 [degF] 98 [degF] eCW1 ([facility]) Systolic blood pressure 120 mm[Hg] 120 mm[Hg] e CW1 ([facility]) Diastolic blood pressure 68 mm[Hg] 68 mm[Hg] eCW1 ([facility]) Body weight 198 [lb_av] 198 [lb_av] eCW1 ([facility]) Body height 63 [in_i] 63 [in_i] eCW1 ([facility]) Body mass index (BMI) [Ratio] 35.07 kg/m2 35.07 kg/m2 eCW1 ([facility]) Heart rate 123 /min 123 /min eCW1 ([facility]) Respiratory rate 18 /min 18 /min eCW1 ([facility]) Body temperature 98.4 [degF] 98.4 [degF] eCW1 ( [facility]) Systolic blood pressure 132 mm[Hg] 132 mm[Hg] e CW1 ([facility]) Diastolic blood pressure 76 mm[Hg] 76 mm[Hg] eCW1 ([facility]) Patient Treatment Plan of Care Planned Activity Planned Date Details Description Data Source (s) meloxicam 15 MG Oral Tablet 09/01/2021 12:00:00 AM EDT eCW1 ([facility]) meloxicam 15 MG Oral Tablet 09/01/2021 12:00:00 AM EDT eCW1 ([facility]) Spironolactone 25 MG Oral Tablet 02/26/2021 12:00:00 AM EDT eCW1 ([facility]) Spironolactone 25 MG Oral Tablet 02/26/2021 12:00:00 AM EDT eCW1 ([facility]) Furosemide 40 MG Oral Tablet 02/20/2021 12:00:00 AM EDT eCW1 ([facility]) Furosemide 40 MG Oral Tablet 02/20/2021 12:00:00 AM EDT eCW1 ([facility]) Acetaminophen 300 MG / Codeine Phosphate 30 MG Oral Ta blet 02/11/2021 12:00:00 AM EDT eCW1 ([facility]) Acetaminophen 300 MG / Codeine Phosphate 30 MG Oral Ta blet 02/11/2021 12:00:00 AM EDT eCW1 ([facility]) carbamide peroxide 65 MG/ML Otic Solution [Debrox] 01/12/2021 12 :00:00 AM EST eCW1 ([facility]) Acetaminophen 300 MG / Codeine Phosphate 30 MG Oral Ta blet 01/12/2021 12:00:00 AM EST eCW1 ([facility]) Calcium 500 + D 500-200 MG-UNIT 12/12/2020 12:00:00 AM EST eCW1 ([facility]) Calcium 500 + D 500-200 MG-UNIT 12/12/2020 12:00:00 AM EST eCW1 ([facility]) Calcium 500 + D 500-200 MG-UNIT 12/12/2020 12:00:00 AM EST eCW1 ([facility])
== END 2021-09-27 18:41 | disposition left against medical advice (07) ==
LOC: M ED 16:41
DX: Z53.21 Procedure and treatment not carried out due to patient leaving prior to being seen by health care provider (principal)

== ENCOUNTER 2021-09-29 11:07 | Emergency (ER) | payer OTHER, MEDICAID ==
[~2021-09-29] VITALS: Ht 160 cm; Wt 93.8 kg
[~2021-09-29 11:07] MED LIST changes: +FLUTISP; +MELO15TA28
--- OUTSIDE RECORDS SUMMARY | 2021-09-29 11:15 | CCD ---
Author Author [facility] Organization [facility] Address Unknown Phone Unavailable Care Team Providers Care Machine Set Up Operator Name Role Phone Crispin PAINTING DPM Unavailable [...] is protected by Article 27-F of the [facility] Public Health law. If you continue you may have access to information: Regarding HIV / AIDS; Provided by facilities licensed or operated by the [facility] Office of Mental Health; or Provided by the [facility] Office for People With Developmental Disabilities. If such information is present, then the following [facility] mandated warning applies: This information has [...] law may result in a fine or snf sentence or both. A general authorization for the release of medical or other information is NOT sufficient authorization for further disc losure. Family History Family Member Name Family Member Gender Family Member Status Date o f Status Description Data Source(s) Unknown Unknown Problem MEDENT ([facility]) Reports that they were healthy Unknown Unknown Problem MED[facility] ([facility]) Encounters Encounter Providers Location Date Indications Data Source(s ) Unknown [address] [facility] [address] 09/02/2021 12:00:00 AM EDT eCW1 ([facility]) Outpatient [address] [facility] [address] 09/01/2021 12:00:00 AM EDT eCW1 ([facility]) Outpatient Attender: SAMUEL PAINTING [facility] Office 07/30 08:45:00 AM EDT MED[facility] ([facility] Outpatient [address] [place] [address] 03/25/2021 12:00:00 AM EDT eCW1 ([facility]) Outpatient Attender: SAMUEL PAINTING [facility] Office 02/26 10:15:00 AM EDT MEDENT ([facility] Office Visit, Est Pt., Level 3 PC [address] [place] [address] 02/26/2021 12:00:00 AM EDT eCW1 ([facility]) Office Visit, Est Pt., Level 3 PC [address] [place] [address] 02/20/2021 12:00:00 AM EDT eCW1 ([facility]) Unknown [address] [facility] [address] 02/20/2021 12:00:00 AM EDT eCW1 ([facility]) Unknown [address] [facility] [address] 02/20/2021 12:00:00 AM EDT eCW1 ([facility]) Unknown [address] [facility] [place] [address] 02/17/2021 12:00:00 AM EDT [facility] Office Visit, Est Pt., Level 3 PC [address] [place] [address] 02/11/2021 12:00:00 AM EDT eCW1 ([facility]) [place] [address] [facility] [place] [address] 02/09/2021 12:00:00 AM EDT [facility]CW1 [facility]) [place] [address] [facility] [place] [address] 12/12/2020 12:00:00 AM EST eCW1 ([facility]) Unknown [address] [facility] [place] [address] 12/10/2020 12:00:00 AM EST eCW1 ([facility]) Outpatient [address] [facility] [place] [address] 10/17/2020 12:00:00 AM EST eCW1 ([facility]) [place] [address] [facility] [place] [address] 10/10/2020 12:00:00 AM EST eCW1 ([facility]) Unknown [address] [facility] [place] [address] 10/09/2020 12:00:00 AM EST eCW1 ([facility]) Immunizations Vaccine Date Status Description Data Source(s) COVID-19 VACCINE Pfizer 08/03/2021 12:00:00 AM EDT completed [facility] Vaccine Series Complete: YESThis Data wa s Submitted to [facility] Via [employer]. COVID-19 VACCINE Pfizer 02/25/2021 12:00:00 AM EDT completed [facility] Vaccine Series Complete: YESThis Data wa s Submitted to [facility] [employer]. COVID-19 VACCINE Pfizer 02/04/2021 12:00:00 AM EST completed [facility] Vaccine Series Complete: NOThis Data was Submitted to [facility] [employer]. DIPHTHERIA,PERTUSSIS(ACELLULAR),TETANUS VACCINE/PF 12:00:00 AM EST completed [facility] INFLUENZA VIRUS VACCINE QUADRIVAL SPLIT 2019-21(65 YR UP)/PF 12/27/2020 12:00:00 AM EST completed [facility] Medications Medication Brand Name Start Date Product Form Dose Route Admi nistrative Instructions Pharmacy Instructions Status Indications Reaction Description Data Source(s) Fluticasone propionate 0.05 MG/ACTUAT Metered Dose Jose al [place] 50 mcg/actuation FLUTICASONE PROPIONATE 09/01/2021 12:00:00 AM [...] {tablet} active Meloxicam 1 5 MG eCW1 ([facility]) meloxicam 15 MG Oral Tablet Meloxicam 15 MG Meloxicam 15 MG 09/01/2021 12:00:00 AM EDT 1.0 {tablet} active Meloxicam 1 5 MG eCW1 ([facility]) Acetaminophen 325 MG / Hydrocodone [...] {tablet} active Spironolact one 25 MG eCW1 ([facility]) Spironolactone 25 MG Oral Tablet Spironolactone 25 MG 2020 12:00:00 AM EDT 1.0 {tablet} active Spironolact one 25 MG eCW1 ([facility]) Spironolactone 25 MG Oral Tablet Spironolactone 25 MG 2020 12:00:00 AM EDT 1.0 {tablet} active Spironolact one 25 MG eCW1 ([facility]) Spironolactone 25 MG Oral Tablet Spironolactone 25 MG 2020 12:00:00 AM EDT 1.0 {tablet} active Spironolact one 25 MG eCW1 ([facility]) Spironolactone 25 MG Oral Tablet Spironolactone 25 MG 2020 12:00:00 AM EDT 1.0 {tablet} active Spironolact one 25 MG eCW1 ([facility]) Furosemide 40 MG Oral Tablet Furosemide 40 MG 02/20/2021 12:00:00 A M EDT 1.0 {tablet} active Furosemide 40 MG eCW1 ( [facility]) 40 mg 02/20/2021 12:00:00 AM EDT tablet 7 TAKE ONE TABLET BY MOUTH EVERY DAY FOR 7 DAYS TAKE ONE TABLET BY MOUTH EVERY DAY FOR 7 DAYS SOLD: 02/20/2021 [facility] Furosemide 40 MG Oral Tablet Furosemide 40 MG 02/20/2021 12:00:00 A M EDT 1.0 {tablet} active Furosemide 40 MG eCW1 ( [facility]) Acetaminophen 300 MG / Codeine Phosphate 30 MG Oral Tablet Acetaminophen-Codeine #3 300-30 MG Acetaminophen-Codeine #3 300-30 MG 02/11/2021 12:00:00 AM EDT 1.0 {tablet_as_needed} suspended Acetaminoph en-Codeine #3 300-30 MG eCW1 ([facility]) Acetaminophen 300 MG / Codeine Phosphate 30 MG Oral Tablet Acetaminophen-Codeine #3 300-30 MG Acetaminophen-Codeine #3 300-30 MG 02/11/2021 12:00:00 AM EDT 1.0 {tablet_as_needed} active Acetaminophen -Codeine #3 300-30 MG eCW1 ([facility]) Acetaminophen 300 MG / Codeine Phosphate 30 MG Oral Tablet Acetaminophen-Codeine #3 300-30 MG Acetaminophen-Codeine #3 300-30 MG 02/11/2021 12:00:00 AM EDT 1.0 {tablet_as_needed} active Acetaminophen -Codeine #3 300-30 MG eCW1 ([facility]) Acetaminophen 300 MG / Codeine Phosphate 30 MG Oral Tablet Acetaminophen-Codeine #3 300-30 MG Acetaminophen-Codeine #3 300-30 MG 02/11/2021 12:00:00 AM EDT 1.0 {tablet_as_needed} active Acetaminophen -Codeine #3 300-30 MG eCW1 ([facility]) Acetaminophen 300 MG / Codeine Phosphate 30 MG Oral Tablet Acetaminophen-Codeine #3 300-30 MG Acetaminophen-Codeine #3 300-30 MG 02/11/2021 12:00:00 AM EDT 1.0 {tablet_as_needed} active Acetaminophen -Codeine #3 300-30 MG eCW1 ([facility]) 300-30 mg 02/11/2021 12:00:00 AM [...] suspended Acetaminoph en-Codeine #3 300-30 MG eCW1 ([facility]) Acetaminophen 300 MG / Codeine Phosphate 30 MG Oral Tablet Acetaminophen-Codeine #3 300-30 MG Acetaminophen-Codeine #3 300-30 MG 02/11/2021 12:00:00 AM EDT 1.0 {tablet_as_needed} active Acetaminophen -Codeine #3 300-30 MG eCW1 ([facility]) Acetaminophen 300 MG / Codeine Phosphate 30 MG Oral Tablet Acetaminophen-Codeine #3 300-30 MG Acetaminophen-Codeine #3 300-30 MG 02/11/2021 12:00:00 AM EDT 1.0 {tablet_as_needed} active Acetaminophen -Codeine #3 300-30 MG eCW1 ([facility]) Acetaminophen 300 MG / Codeine Phosphate 30 MG Oral Tablet Acetaminophen-Codeine #3 300-30 MG Acetaminophen-Codeine #3 300-30 MG 02/11/2021 12:00:00 AM EDT 1.0 {tablet_as_needed} active Acetaminophen -Codeine #3 300-30 MG eCW1 ([facility]) carbamide peroxide 65 MG/ML Otic Solution [Debrox] Debrox 6. 5 % Debrox 6.5 % 01/12/2021 12:00:00 AM EST active Debrox 6.5 % eCW1 ([facility]) carbamide peroxide 65 MG/ML Otic Solution [Debrox] Debrox 6. 5 % Debrox 6.5 % 01/12/2021 12:00:00 AM EST active Debrox 6.5 % eCW1 ([facility]) Acetaminophen 300 MG / Codeine Phosphate 30 MG Oral Tablet Acetaminophen-Codeine #3 300-30 MG Acetaminophen-Codeine #3 300-30 MG 01/12/2021 12:00:00 AM EST 1.0 {tablet_as_needed} active Acetamino phen-Codeine #3 300-30 MG eCW1 ([facility]) Acetaminophen 300 MG / Codeine Phosphate 30 MG Oral Tablet Acetaminophen-Codeine #3 300-30 MG Acetaminophen-Codeine #3 300-30 MG 01/12/2021 12:00:00 AM EST 1.0 {tablet_as_needed} active Acetamino phen-Codeine #3 300-30 MG eCW1 ([facility]) 6.5 % 01/12/2021 12:00:00 AM EST drops 15 INSTILL 5 DROPS INTO BOTH EARS AT BEDTIME INSTILL 5 DROPS INTO BOTH EARS AT BEDTIME SOLD: 01/12/2021 [facility] Acetaminophen 300 MG / Codeine Phosphate 30 MG Oral Tablet Acetaminophen-Codeine #3 300-30 MG Acetaminophen-Codeine #3 300-30 MG 01/12/2021 12:00:00 AM EST 1.0 {tablet_as_needed} active Acetamino phen-Codeine #3 300-30 MG eCW1 ([facility]) Acetaminophen 300 MG / Codeine Phosphate 30 MG Oral Tablet Acetaminophen-Codeine #3 300-30 MG Acetaminophen-Codeine #3 300-30 MG 01/12/2021 12:00:00 AM EST 1.0 {tablet_as_needed} active Acetamino phen-Codeine #3 300-30 MG eCW1 ([facility]) Acetaminophen 300 MG / Codeine Phosphate 30 MG Oral Tablet Acetaminophen-Codeine #3 300-30 MG Acetaminophen-Codeine #3 300-30 MG 01/12/2021 12:00:00 AM EST 1.0 {tablet_as_needed} active Acetamino phen-Codeine #3 300-30 MG eCW1 ([facility]) carbamide peroxide 65 MG/ML Otic Solution [Debrox] Debrox 6. 5 % Debrox 6.5 % 01/12/2021 12:00:00 AM EST active Debrox 6.5 % eCW1 ([facility]) Acetaminophen 300 MG / Codeine Phosphate 30 MG Oral Tablet Acetaminophen-Codeine #3 300-30 MG Acetaminophen-Codeine #3 300-30 MG 01/12/2021 12:00:00 AM EST 1.0 {tablet_as_needed} suspended Acetami nophen-Codeine #3 300-30 MG eCW1 ([facility]) Acetaminophen 300 MG / Codeine Phosphate 30 MG Oral Tablet Acetaminophen-Codeine #3 300-30 MG Acetaminophen-Codeine #3 300-30 MG 01/12/2021 12:00:00 AM EST 1.0 {tablet_as_needed} active Acetamino phen-Codeine #3 300-30 MG eCW1 ([facility]) carbamide peroxide 65 MG/ML Otic Solution [Debrox] Debrox 6. 5 % Debrox 6.5 % 01/12/2021 12:00:00 AM EST active Debrox 6.5 % eCW1 ([facility]) carbamide peroxide 65 MG/ML Otic Solution [Debrox] Debrox 6. 5 % Debrox 6.5 % 01/12/2021 12:00:00 AM EST active Debrox 6.5 % eCW1 ([facility]) Acetaminophen 300 MG / Codeine Phosphate 30 MG Oral Tablet Acetaminophen-Codeine #3 300-30 MG Acetaminophen-Codeine #3 300-30 MG 01/12/2021 12:00:00 AM EST 1.0 {tablet_as_needed} active Acetamino phen-Codeine #3 300-30 MG eCW1 ([facility]) carbamide peroxide 65 MG/ML Otic Solution [Debrox] Debrox 6. 5 % Debrox 6.5 % 01/12/2021 12:00:00 AM EST active Debrox 6.5 % eCW1 ([facility]) carbamide peroxide 65 MG/ML Otic Solution [Debrox] Debrox 6. 5 % Debrox 6.5 % 01/12/2021 12:00:00 AM EST active Debrox 6.5 % eCW1 ([facility]) 300-30 mg 01/12/2021 12:00:00 AM [...] suspended Acetami nophen-Codeine #3 300-30 MG eCW1 ([facility]) Acetaminophen 300 MG / Codeine Phosphate 30 MG Oral Tablet Acetaminophen-Codeine #3 300-30 MG Acetaminophen-Codeine #3 300-30 MG 01/12/2021 12:00:00 AM EST 1.0 {tablet_as_needed} active Acetamino phen-Codeine #3 300-30 MG eCW1 ([facility]) carbamide peroxide 65 MG/ML Otic Solution [Debrox] Debrox 6. 5 % Debrox 6.5 % 01/12/2021 12:00:00 AM EST active Debrox 6.5 % eCW1 ([facility]) carbamide peroxide 65 MG/ML Otic Solution [Debrox] Debrox 6. 5 % Debrox 6.5 % 01/12/2021 12:00:00 AM EST active Debrox 6.5 % eCW1 ([facility]) carbamide peroxide 65 MG/ML Otic Solution [Debrox] Debrox 6. 5 % Debrox 6.5 % 01/12/2021 12:00:00 AM EST active Debrox 6.5 % eCW1 ([facility]) 500 mg(1,250mg) -200 unit 12/13/2020 12:00:00 AM EST tablet 30 TAKE ONE TABLET BY MOUTH EVERY DAY WITH MEAL TAKE ONE TABLET BY MOUTH EVERY DAY WITH MEAL SOLD: 12/17/2020 [facility] Calcium 500 + D 500-200 MG-UNIT Calcium 500 + D 500-200 MG-U NIT 12/12/2020 12:00:00 AM EST 1.0 {tablet_with_a_meal} active Calcium 500 + D 500- 200 MG-UNIT eCW1 ([facility]) Calcium 500 + D 500-200 MG-UNIT Calcium 500 + D 500-200 MG-U NIT 12/12/2020 12:00:00 AM EST 1.0 {tablet_with_a_meal} active Calcium 500 + D 500- 200 MG-UNIT eCW1 ([facility]) Calcium 500 + D 500-200 MG-UNIT Calcium 500 + D 500-200 MG-U NIT 12/12/2020 12:00:00 AM EST 1.0 {tablet_with_a_meal} active Calcium 500 + D 500- 200 MG-UNIT eCW1 ([facility]) Calcium 500 + D 500-200 MG-UNIT Calcium 500 + D 500-200 MG-U NIT 12/12/2020 12:00:00 AM EST 1.0 {tablet_with_a_meal} active Calcium 500 + D 500- 200 MG-UNIT eCW1 ([facility]) Calcium 500 + D 500-200 MG-UNIT Calcium 500 + D 500-200 MG-U NIT 12/12/2020 12:00:00 AM EST 1.0 {tablet_with_a_meal} active Calcium 500 + D 500- 200 MG-UNIT eCW1 ([facility]) Calcium 500 + D 500-200 MG-UNIT Calcium 500 + D 500-200 MG-U NIT 12/12/2020 12:00:00 AM EST 1.0 {tablet_with_a_meal} active Calcium 500 + D 500- 200 MG-UNIT eCW1 ([facility]) Calcium 500 + D 500-200 MG-UNIT Calcium 500 + D 500-200 MG-U NIT 12/12/2020 12:00:00 AM EST 1.0 {tablet_with_a_meal} active Calcium 500 + D 500- 200 MG-UNIT eCW1 ([facility]) Calcium 500 + D 500-200 MG-UNIT Calcium 500 + D 500-200 MG-U NIT 12/12/2020 12:00:00 AM EST 1.0 {tablet_with_a_meal} active Calcium 500 + D 500- 200 MG-UNIT eCW1 ([facility]) Calcium 500 + D 500-200 MG-UNIT Calcium 500 + D 500-200 MG-U NIT 12/12/2020 12:00:00 AM EST 1.0 {tablet_with_a_meal} active Calcium 500 + D 500- 200 MG-UNIT eCW1 ([facility]) Calcium 500 + D 500-200 MG-UNIT Calcium 500 + D 500-200 MG-U NIT 12/12/2020 12:00:00 AM EST 1.0 {tablet_with_a_meal} active Calcium 500 + D 500- 200 MG-UNIT eCW1 ([facility]) Nystatin 100 UNT/MG Topical Powder [...] 500 + D 500- 200 MG-UNIT eCW1 ([facility]) 50 mcg (2,000 unit) 12/11/2020 [...] EST suspended Mupir ocin 2 % eCW1 ([facility]) Fluconazole 150 MG Oral Tablet [Diflucan] Diflucan 150 MG Di flucan 150 MG 10/10/2020 12:00:00 AM EST 1.0 {tablet} suspended Diflucan 150 MG eCW1 ([facility]) Mupirocin 0.02 MG/MG Topical Ointment Mupirocin 2 % Mupiroci n 2 % 10/10/2020 12:00:00 AM EST suspended Mupir ocin 2 % eCW1 ([facility]) Fluconazole 150 MG Oral Tablet [Diflucan] Diflucan 150 MG Di flucan 150 MG 10/10/2020 12:00:00 AM EST 1.0 {tablet} suspended Diflucan 150 MG eCW1 ([facility]) 2 % 10/10/2020 12:00:00 AM [...] 1.0 {tablet} suspended Diflucan 150 MG eCW1 ([facility]) Mupirocin 0.02 MG/MG Topical Ointment Mupirocin 2 % Mupiroci n 2 % 10/10/2020 12:00:00 AM EST suspended Mupir ocin 2 % eCW1 ([facility]) Fluconazole 150 MG Oral Tablet [Diflucan] Diflucan 150 MG Di flucan 150 MG 10/10/2020 12:00:00 AM EST 1.0 {tablet} suspended Diflucan 150 MG eCW1 ([facility]) 150 mg 10/10/2020 12:00:00 AM [...] EST suspended Mupir ocin 2 % eCW1 ([facility]) 2 % 10/10/2020 12:00:00 AM [...] type / Coverage type Policy ID Covered alliance party ID Covered alliance party's relationship to jane Policy Jane Plan Information [facility] DUAL COMPLETE [id number] Patient is Insured [id number] [facility] COMMUNITY PLAN UNAVAILABLE Patient is Insured UNAVAILABLE MEDICARE [id number] Patient is Insured [id number] MEDICARE [id number] Patient is Insured [id number] MEDICAID [id number] Patient is Insured A [id number] [facility] DUAL COMPLETE NOTNEEDED Patient is Insured NOTNEEDED MEDICARE [id number] Patient is Insured [id number] [facility] COMMUNITY PLAN [id number] Patient is Insured [id number] [facility] Maintenance Organization ([facility]) [id number] Self [id number] [facility] ([facility]) [id number] Self [id number] [facility] Maintenance [facility] ([facility]) [id number] Self [id number] [facility] Maintenance [facility] ([facility]) [id number] Self [id number] [employer] [id number] SP [id number] [facility] [id number] SP [id number] [facility] [id number] SP [id number] [facility](MCAID) O [id number] S [id number] [facility] [id number] SP [id number] UN COMMUNITY [facility]AN [facility] [id number] SP [id number] [facility] Maintenance [facility] ([facility]) [id number] Self [id number] [facility]-Medicaid [id number] [facility]-Medicaid [id number] [facility]-Medicaid [id number] [facility]-Medicaid [id number] [facility] [id number] [facility]) O [id number] S [id number] [facility] [id number] SP [id number] ANSI-Medicaid [id number] ANSI-Medicaid [id number] MEDICARE [id number] SP [id number] [facility] [id number] SP [id number] ANSI-Medicaid [id number] ANSI-Medicaid [id number] [facility] Health Maintenance Organization ([facility]) [id number] Self [id number] [facility]) O [id number] S [id number] [facility] Health Maintenance Organization ([facility]) [id number] [facility] Health Maintenance Organization (O) [id number] Self [id number] [facility] ([facility]) [id number] Self [id number] [facility] ([facility]) [id number] Self [id number] [facility] ([facility]) [id number] Self [id number] [facility] ([facility]) [id number] Self [id number] [facility] ([facility]) [id number] Self [id number] [facility] ([facility]) [id number] Self [id number] PREF[employer]ED [employer] CO NO FAULT [id number] [facility] ([facility]) [id number] Self PREFERRED MUT INS CO NO FAULT [id number] [facility] Maintenance Organization ([facility]) [id number] Self UN COMMUNITY PLAN MCDO [id number] SP [id number] [facility] COMMUNITY PLAN MCDO [id number] SP [id number] [facility]) P [id number] S [id number] [facility]) P [id number] S [id number] [place] [id number] SP [id number] F [id number] [employer] [id number] SP [id number] [employer] G[employer] [id number] SP [id number] [employer] [id number] SP [id number] [employer] G[employer] [id number] SP [id number] SP [id number] [employer] GOLD SEE INS CARD SP SEE I NS CARD MEDICARE [id number] SP [id number] [employer] G[employer] [id number] SP [id number] [employer] HMO O [id number] S [id number] MEDICAID M [id number] S [id number] MEDICAID [id number] SP [id number] Problems, Conditions, and Diagnoses Code Display Name [...] AM EDT [facility] ([facility] N76.1 [id number] Subacute vaginitis Problem 10/17/2020 12:00:00 AM EST eCW1 ([facility]) Surgeries/Procedures Procedure Description Date Indications [...] (BMP) 02/20/2021 12:00:00 AM EDT eCW 1 ([facility]) Name Value Range Interpretation Code Description Data Loretta rce(s) Supporting Document(s) 25 7-18 BLOOD UREA NITROGEN eCW1 ([facility]) 0.85 0.55-1.30 CREATININE FOR GFR eCW1 ([facility]) 76 70-100 GLUCOSE, FASTING eCW1 ([facility]) 107 98-107 CHLORIDE LEVEL eCW1 ([facility]) > 60.0 >45 GLOMERULAR FILTRATION RATE eCW 1 ([facility]) 4.3 3.5-5.1 POTASSIUM SERUM eCW1 ([facility]) 143 136-145 SODIUM LEVEL eCW1 ([facility]) 8.7 8.8-10.2 CALCIUM LEVEL eCW1 ([facility]) 31 21-32 CARBON DIOXIDE LEVEL eCW1 ([facility]) ID Date Data Source NT-PRO BNP 02/20/2021 12:00:00 AM EDT eCW1 ([facility]) Name Value Range Interpretation Code Description Data Loretta rce(s) Supporting Document(s) 12 <125 NT-PRO BNP eCW1 ([facility]) ID Date Data Source ADM SPINE CERVICAL COMPLETE 02/11/2021 12:00:00 AM EDT eCW1 ([facility]) Name Value Range Interpretation Code Description Data Loretta rce(s) Supporting Document(s) ADM SPINE CERVICAL COMPLETE eC W1 ([facility]) ID Date Data Source LIPID PANEL (CARDIAC RISK) 10/17/2020 12:00:00 AM EST eCW1 ( [facility]) Name Value Range Interpretation Code Description Data Loretta rce(s) Supporting Document(s) Triglyceride [Mass/volume] in Serum or Plasma by calculation 104 <150 TRIGLYCERIDES LEVEL eCW1 ([facility]) Cholesterol [Moles/volume] in Serum or Plasma 205 <200 CHOLESTEROL LEVEL eCW1 ([facility]) Cholesterol in HDL [Moles/volume] in Serum or Plasma 89 >40 HDL CHOLESTEROL eCW1 ([facility]) Cholesterol in LDL [Mass/volume] in Serum or Plasma by calculation 95 <100 LDL CHOLESTEROL eCW1 ([facility]) 116 NON-HDL-C eCW1 ([facility]) 2.303 <5 CHOLESTEROL RISK RATIO eCW1 ([facility]) ID Date Data Source FREE T4 & TSH PANEL 10/17/2020 12:00:00 AM EST eCW1 ([facility]) Name Value Range Interpretation Code Description Data Loretta rce(s) Supporting Document(s) 2.090 0.358-3.740 THYROID STIMULATING HORM ONE eCW1 ([facility]) 0.81 0.76-1.46 FREE T4 eCW1 ([facility]) ID Date Data Source Comprehensive Metabolic Profile (CMP) 10/17/2020 12:00:00 AM EST eCW1 ([facility]) Name Value Range Interpretation Code Description Data Loretta rce(s) Supporting Document(s) 24 7-18 BLOOD UREA NITROGEN eCW1 ([facility]) 107 70-100 GLUCOSE, FASTING eCW1 ([facility]) 108 98-107 CHLORIDE LEVEL eCW1 ([facility]) 4.3 3.5-5.1 POTASSIUM SERUM eCW1 ([facility]) 1.16 0.55-1.30 CREATININE FOR GFR eCW1 ([facility]) 143 136-145 SODIUM LEVEL eCW1 ([facility]) 49.6 >45 GLOMERULAR FILTRATION RATE eCW 1 ([facility]) 31 21-32 CARBON DIOXIDE LEVEL eCW1 ([facility]) 18 7-37 AST/SGOT eCW1 ([facility]) 9.4 8.8-10.2 CALCIUM LEVEL eCW1 ([facility]) 27 12-78 ALT/SGPT eCW1 ([facility]) 3.8 3.2-5.2 ALBUMIN eCW1 ([facility]) 93 45-117 ALKALINE PHOSPHATASE eCW1 ([facility]) 7.7 6.4-8.2 TOTAL PROTEIN eCW1 ([facility]) 0.4 0.2-1.0 BILIRUBIN,TOTAL eCW1 ([facility]) 1.0 1.2-2.2 ALBUMIN/GLOBULIN RATIO eCW1 ([facility]) ID Date Data Source CBC - Complete Blood Count 10/17/2020 12:00:00 AM EST eCW1 ( [facility]) Name Value Range Interpretation Code Description Data Loretta rce(s) Supporting Document(s) 13.7 12.0-15.5 eCW1 ([facility]) 7.1 4.0-10.0 eCW1 ([facility]) 4.72 4.00-5.40 eCW1 ([facility]) 44.6 36.0-47.0 eCW1 ([facility]) 30.7 32.0-36.5 eCW1 ([facility]) 94.5 80.0-96.0 eCW1 ([facility]) 29.0 27.0-33.0 eCW1 ([facility]) 13.7 11.5-14.5 eCW1 ([facility]) 302 150-450 eCW1 ([facility]) ID Date Data Source URINE CULTURE 10/10/2020 12:00:00 AM EST eCW1 ([facility]) Name Value Range Interpretation Code Description Data Loretta rce(s) Supporting Document(s) URINE CULTURE eCW1 ([facility]) Procedure Social History Code Duration Value Status Description Data Source(s ) Smoking 09/01/2021 12:00:00 AM EDT Former Smoker completed Former Smoker eCW1 ([facility]) Smoking 09/01/2021 12:00:00 AM EDT Former Smoker completed Former Smoker eCW1 ([facility]) Smoking 03/25/2021 12:00:00 AM EDT Former Smoker completed Former Smoker eCW1 ([facility]) Smoking 02/26/2021 12:00:00 AM EDT Former Smoker completed Former Smoker eCW1 ([facility]) Smoking 02/26/2021 12:00:00 AM EDT Former Smoker completed Former Smoker eCW1 ([facility]) Smoking 02/20/2021 12:00:00 AM EDT Former Smoker completed Former Smoker eCW1 ([facility]) Smoking 02/20/2021 12:00:00 AM EDT Former Smoker completed Former Smoker eCW1 ([facility]) Smoking 02/11/2021 12:00:00 AM EDT Former Smoker completed Former Smoker eCW1 ([facility]) Smoking 02/11/2021 12:00:00 AM EDT Former Smoker completed Former Smoker eCW1 ([facility]) Smoking 01/12/2021 12:00:00 AM EST Former Smoker completed Former Smoker eCW1 ([facility]) Smoking 10/17/2020 12:00:00 AM EST Former Smoker completed Former Smoker eCW1 ([facility]) Smoking 10/17/2020 12:00:00 AM EST Former Smoker completed Former Smoker eCW1 ([facility]) Smoking 10/17/2020 12:00:00 AM EST Former Smoker completed Former Smoker eCW1 ([facility]) Smoking 10/17/2020 12:00:00 AM EST Former Smoker completed Former Smoker eCW1 ([facility]) Smoking 10/09/2020 12:00:00 AM EST Former Smoker completed Former Smoker eCW1 ([facility]) Vital Signs ID Date Data Source UNK Name Value Range Interpretation Code Description Data Source(s) Body weight 203 [lb_av] 203 [lb_av] eCW1 ([facility]) Body height 63 [in_i] 63 [in_i] eCW1 ([facility]) Body mass index (BMI) [Ratio] 35.96 kg/m2 35.96 kg/m2 eCW1 ([facility]) Heart rate 99 /min 99 /min eCW1 ([facility]) Respiratory rate 18 /min 18 /min eCW1 ([facility]) Body temperature 98.4 [degF] 98.4 [degF] eCW1 ( [facility]) Systolic blood pressure 120 mm[Hg] 120 mm[Hg] e CW1 ([facility]) Diastolic blood pressure 80 mm[Hg] 80 mm[Hg] eCW1 ([facility]) Body weight 235 [lb_av] 235 [lb_av] eCW1 ([facility]) Body height 63 [in_i] 63 [in_i] eCW1 ([facility]) Body mass index (BMI) [Ratio] 41.62 kg/m2 41.62 kg/m2 eCW1 ([facility]) Heart rate 104 /min 104 /min eCW1 ([facility]) Respiratory rate 18 /min 18 /min eCW1 ([facility]) Body temperature 98.7 [degF] 98.7 [degF] eCW1 ( [facility]) Systolic blood pressure 134 mm[Hg] 134 mm[Hg] e CW1 ([facility]) Diastolic blood pressure 88 mm[Hg] 88 mm[Hg] eCW1 ([facility]) Body mass index (BMI) [Ratio] [...] Body weight 208 [lb_av] 208 [lb_av] eCW1 ([facility]) Body height 63 [in_i] 63 [in_i] eCW1 ([facility]) Body mass index (BMI) [Ratio] 36.84 kg/m2 36.84 kg/m2 eCW1 ([facility]) Heart rate 73 /min 73 /min eCW1 ([facility]) Respiratory rate 18 /min 18 /min eCW1 ([facility]) Body temperature 97.6 [degF] 97.6 [degF] eCW1 ( [facility]) Systolic blood pressure 138 mm[Hg] 138 mm[Hg] e CW1 ([facility]) Diastolic blood pressure 84 mm[Hg] 84 mm[Hg] eCW1 ([facility]) Body weight 210 [lb_av] 210 [lb_av] eCW1 ([facility]) Body height 63 [in_i] 63 [in_i] eCW1 ([facility]) Body mass index (BMI) [Ratio] 37.20 kg/m2 37.20 kg/m2 eCW1 ([facility]) Heart rate 101 /min 101 /min eCW1 ([facility]) Respiratory rate 18 /min 18 /min eCW1 ([facility]) Body temperature 97.2 [degF] 97.2 [degF] eCW1 ( [facility]) Systolic blood pressure 130 mm[Hg] 130 mm[Hg] e CW1 ([facility]) Diastolic blood pressure 82 mm[Hg] 82 mm[Hg] eCW1 ([facility]) Body weight 214 [lb_av] 214 [lb_av] eCW1 ([facility]) Body height 63 [in_i] 63 [in_i] eCW1 ([facility]) Body mass index (BMI) [Ratio] 37.90 kg/m2 37.90 kg/m2 eCW1 ([facility]) Heart rate 93 /min 93 /min eCW1 ([facility]) Respiratory rate 97.8 /min 97.8 /min eCW1 ([facility]) Body temperature 97.6 [degF] 97.6 [degF] eCW1 ( [facility]) Systolic blood pressure 166 mm[Hg] 166 mm[Hg] e CW1 ([facility]) Diastolic blood pressure 88 mm[Hg] 88 mm[Hg] eCW1 ([facility]) Diastolic blood pressure 76 mm[Hg] 76 mm[Hg] MEDENT ([facility] Body mass index (BMI) [Ratio] 35.1 kg/m2 35.1 k g/m2 MEDENT ([employer] Body height 63 [in_i] 63 [in_i] MEDENT ([facility] 5'3" Body weight 198.00 [lb_av] 198.00 [lb_av] MEDEN T ([facility] Systolic blood pressure 132 mm[Hg] 132 mm[Hg] M EDENT ([facility] Body weight 203.4 [lb_av] 203.4 [lb_av] eCW1 ([facility]) Body height 63 [in_i] 63 [in_i] eCW1 ([facility]) Body mass index (BMI) [Ratio] 36.03 kg/m2 36.03 kg/m2 eCW1 ([facility]) Heart rate 125 /min 125 /min eCW1 ([facility]) Respiratory rate 18 /min 18 /min eCW1 ([facility]) Body temperature 98 [degF] 98 [degF] eCW1 ([facility]) Systolic blood pressure 120 mm[Hg] 120 mm[Hg] e CW1 ([facility]) Diastolic blood pressure 68 mm[Hg] 68 mm[Hg] eCW1 ([facility]) Body weight 198 [lb_av] 198 [lb_av] eCW1 ([facility]) Body height 63 [in_i] 63 [in_i] eCW1 ([facility]) Body mass index (BMI) [Ratio] 35.07 kg/m2 35.07 kg/m2 eCW1 ([facility]) Heart rate 123 /min 123 /min eCW1 ([facility]) Respiratory rate 18 /min 18 /min eCW1 ([facility]) Body temperature 98.4 [degF] 98.4 [degF] eCW1 ( [facility]) Systolic blood pressure 132 mm[Hg] 132 mm[Hg] e CW1 ([facility]) Diastolic blood pressure 76 mm[Hg] 76 mm[Hg] eCW1 ([facility]) Patient Treatment Plan of Care Planned Activity Planned Date Details Description Data Source (s) meloxicam 15 MG Oral Tablet 09/01/2021 12:00:00 AM EDT eCW1 ([facility]) meloxicam 15 MG Oral Tablet 09/01/2021 12:00:00 AM EDT eCW1 ([facility]) Spironolactone 25 MG Oral Tablet 02/26/2021 12:00:00 AM EDT eCW1 ([facility]) Spironolactone 25 MG Oral Tablet 02/26/2021 12:00:00 AM EDT eCW1 ([facility]) Furosemide 40 MG Oral Tablet 02/20/2021 12:00:00 AM EDT eCW1 ([facility]) Furosemide 40 MG Oral Tablet 02/20/2021 12:00:00 AM EDT eCW1 ([facility]) Acetaminophen 300 MG / Codeine Phosphate 30 MG Oral Ta blet 02/11/2021 12:00:00 AM EDT eCW1 ([facility]) Acetaminophen 300 MG / Codeine Phosphate 30 MG Oral Ta blet 02/11/2021 12:00:00 AM EDT eCW1 ([facility]) carbamide peroxide 65 MG/ML Otic Solution [Debrox] 01/12/2021 12 :00:00 AM EST eCW1 ([facility]) Acetaminophen 300 MG / Codeine Phosphate 30 MG Oral Ta blet 01/12/2021 12:00:00 AM EST eCW1 ([facility]) Calcium 500 + D 500-200 MG-UNIT 12/12/2020 12:00:00 AM EST eCW1 ([facility]) Calcium 500 + D 500-200 MG-UNIT 12/12/2020 12:00:00 AM EST eCW1 ([facility]) Calcium 500 + D 500-200 MG-UNIT 12/12/2020 12:00:00 AM EST eCW1 ([facility])
--- OUTSIDE RECORDS SUMMARY | 2021-09-29 13:02 | CCD ---
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 If you continue you may have access to information: Regarding HIV / AIDS; Provided by facilities licensed or operated by the [facility] Office of Mental Health; or Provided by the [facility] Office for People With Developmental Disabilities. If such information is present, then the following [facility] mandated warning applies: This information [...] Description Data Source(s) Unknown Unknown Problem MEDENT ([facility]) Reports that they were healthy Unknown Unknown Problem MEDENT ([facility]) Encounters Encounter Providers Location Date Indications Data Source(s ) Unknown [address] [facility] [id number] 09/02/2021 12:00:00 AM EDT eCW1 ([facility]) Outpatient [address] [facility] [id number] 09/01/2021 12:00:00 AM EDT eCW1 ([facility]) Outpatient Attender: SAMUEL PAINTING [facility] Office 07/30 08:45:00 AM EDT MEDENT ([facility] Outpatient [address] [place] [phone] 03/25/2021 12:00:00 AM EDT eCW1 ([facility]) Outpatient Attender: SAUMEL PAINTING [facility] Office 02/26 10:15:00 AM EDT MEDENT ([facility] Office Visit, Est Pt., Level 3 PC [address] [place] [address] 02/26/2021 12:00:00 AM EDT eCW1 ([facility]) Office Visit, Est Pt., Level 3 PC [address] [place] [address] 02/20/2021 12:00:00 AM EDT eCW1 ([facility]) Unknown [address] [facility] [id number] 02/20/2021 12:00:00 AM EDT eCW1 ([facility]) Unknown [address] [facility] [id number] 02/20/2021 12:00:00 AM EDT eCW1 ([facility]) Unknown [address] [facility] [place] [address] 02/17/2021 12:00:00 AM EDT eCW1 ([facility]) Office Visit, Est Pt., Level 3 PC [address] [place] [address] 02/11/2021 12:00:00 AM EDT eCW1 ([facility]) Unknown [address] [facility] [place] [address] 02/09/2021 12:00:00 AM EDT eCW1 ([facility]) Unknown [address] [facility] [place] [address] 12/12/2020 12:00:00 AM EST eCW1 ([facility]) Unknown [address] [facility] [place] [address] 12/10/2020 12:00:00 AM EST eCW1 ([facility]) Outpatient [address] [facility] [place] [address] 10/17/2020 12:00:00 AM EST eCW1 ([facility]) Outpatient [address] [facility] [place] [address] 10/10/2020 12:00:00 AM EST eCW1 ([facility]) Unknown [address] [facility] [place] [address] 10/09/2020 12:00:00 AM EST eCW1 ([facility]) Immunizations Vaccine Date Status Description Data Source(s) COVID-19 VACCINE Pfizer 08/03/2021 12:00:00 AM EDT completed [facility] Vaccine Series Complete: YESThis Data wa s Submitted to [facility] [address]. COVID-19 VACCINE Pfizer 02/25/2021 12:00:00 AM EDT completed [facility] Vaccine Series Complete: YESThis Data wa s Submitted to [facility] [address]. COVID-19 VACCINE Pfizer 02/04/2021 12:00:00 AM EST completed [facility] Vaccine Series Complete: NOThis Data was Submitted to [facility] [address]. DIPHTHERIA,PERTUSSIS(ACELLULAR),TETANUS VACCINE/PF 12:00:00 AM EST completed [facility] INFLUENZA VIRUS VACCINE QUADRIVAL SPLIT 2019-21(65 YR UP)/PF 12/27/2020 12:00:00 AM EST completed [facility] Medications Medication Brand Name Start Date Product Form Dose Route Admi nistrative Instructions Pharmacy Instructions Status Indications Reaction Description Data Source(s) Fluticasone propionate 0.05 MG/ACTUAT Metered Dose [facility] [place] 50 mcg/actuation FLUTICASONE PROPIONATE 09/01/2021 12:00:00 AM [...] {tablet} active Meloxicam 1 5 MG eCW1 ([facility]) meloxicam 15 MG Oral Tablet Meloxicam 15 MG Meloxicam 15 MG 09/01/2021 12:00:00 AM EDT 1.0 {tablet} active Meloxicam 1 5 MG eCW1 ([facility]) Acetaminophen 325 MG / Hydrocodone [...] {tablet} active Spironolact one 25 MG eCW1 ([facility]) Spironolactone 25 MG Oral Tablet Spironolactone 25 MG 2020 12:00:00 AM EDT 1.0 {tablet} active Spironolact one 25 MG eCW1 ([facility]) Spironolactone 25 MG Oral Tablet Spironolactone 25 MG 2020 12:00:00 AM EDT 1.0 {tablet} active Spironolact one 25 MG eCW1 ([facility]) Spironolactone 25 MG Oral Tablet Spironolactone 25 MG 2020 12:00:00 AM EDT 1.0 {tablet} active Spironolact one 25 MG eCW1 ([facility]) Spironolactone 25 MG Oral Tablet Spironolactone 25 MG 2020 12:00:00 AM EDT 1.0 {tablet} active Spironolact one 25 MG eCW1 ([facility]) Furosemide 40 MG Oral Tablet Furosemide 40 MG 02/20/2021 12:00:00 A M EDT 1.0 {tablet} active Furosemide 40 MG eCW1 ( [facility]) 40 mg 02/20/2021 12:00:00 AM EDT tablet 7 TAKE ONE TABLET BY MOUTH EVERY DAY FOR 7 DAYS TAKE ONE TABLET BY MOUTH EVERY DAY FOR 7 DAYS SOLD: 02/20/2021 [facility] Furosemide 40 MG Oral Tablet Furosemide 40 MG 02/20/2021 12:00:00 A M EDT 1.0 {tablet} active Furosemide 40 MG eCW1 ( [facility]) Acetaminophen 300 MG / Codeine Phosphate 30 MG Oral Tablet Acetaminophen-Codeine #3 300-30 MG Acetaminophen-Codeine #3 300-30 MG 02/11/2021 12:00:00 AM EDT 1.0 {tablet_as_needed} suspended Acetaminoph en-Codeine #3 300-30 MG eCW1 ([facility]) Acetaminophen 300 MG / Codeine Phosphate 30 MG Oral Tablet Acetaminophen-Codeine #3 300-30 MG Acetaminophen-Codeine #3 300-30 MG 02/11/2021 12:00:00 AM EDT 1.0 {tablet_as_needed} active Acetaminophen -Codeine #3 300-30 MG eCW1 ([facility]) Acetaminophen 300 MG / Codeine Phosphate 30 MG Oral Tablet Acetaminophen-Codeine #3 300-30 MG Acetaminophen-Codeine #3 300-30 MG 02/11/2021 12:00:00 AM EDT 1.0 {tablet_as_needed} active Acetaminophen -Codeine #3 300-30 MG eCW1 ([facility]) Acetaminophen 300 MG / Codeine Phosphate 30 MG Oral Tablet Acetaminophen-Codeine #3 300-30 MG Acetaminophen-Codeine #3 300-30 MG 02/11/2021 12:00:00 AM EDT 1.0 {tablet_as_needed} active Acetaminophen -Codeine #3 300-30 MG eCW1 ([facility]) Acetaminophen 300 MG / Codeine Phosphate 30 MG Oral Tablet Acetaminophen-Codeine #3 300-30 MG Acetaminophen-Codeine #3 300-30 MG 02/11/2021 12:00:00 AM EDT 1.0 {tablet_as_needed} active Acetaminophen -Codeine #3 300-30 MG eCW1 ([facility]) 300-30 mg 02/11/2021 12:00:00 AM [...] suspended Acetaminoph en-Codeine #3 300-30 MG eCW1 ([facility]) Acetaminophen 300 MG / Codeine Phosphate 30 MG Oral Tablet Acetaminophen-Codeine #3 300-30 MG Acetaminophen-Codeine #3 300-30 MG 02/11/2021 12:00:00 AM EDT 1.0 {tablet_as_needed} active Acetaminophen -Codeine #3 300-30 MG eCW1 ([facility]) Acetaminophen 300 MG / Codeine Phosphate 30 MG Oral Tablet Acetaminophen-Codeine #3 300-30 MG Acetaminophen-Codeine #3 300-30 MG 02/11/2021 12:00:00 AM EDT 1.0 {tablet_as_needed} active Acetaminophen -Codeine #3 300-30 MG eCW1 ([facility]) Acetaminophen 300 MG / Codeine Phosphate 30 MG Oral Tablet Acetaminophen-Codeine #3 300-30 MG Acetaminophen-Codeine #3 300-30 MG 02/11/2021 12:00:00 AM EDT 1.0 {tablet_as_needed} active Acetaminophen -Codeine #3 300-30 MG eCW1 ([facility]) carbamide peroxide 65 MG/ML Otic Solution [Debrox] Debrox 6. 5 % Debrox 6.5 % 01/12/2021 12:00:00 AM EST active Debrox 6.5 % eCW1 ([facility]) carbamide peroxide 65 MG/ML Otic Solution [Debrox] Debrox 6. 5 % Debrox 6.5 % 01/12/2021 12:00:00 AM EST active Debrox 6.5 % eCW1 ([facility]) Acetaminophen 300 MG / Codeine Phosphate 30 MG Oral Tablet Acetaminophen-Codeine #3 300-30 MG Acetaminophen-Codeine #3 300-30 MG 01/12/2021 12:00:00 AM EST 1.0 {tablet_as_needed} active Acetamino phen-Codeine #3 300-30 MG eCW1 ([facility]) Acetaminophen 300 MG / Codeine Phosphate 30 MG Oral Tablet Acetaminophen-Codeine #3 300-30 MG Acetaminophen-Codeine #3 300-30 MG 01/12/2021 12:00:00 AM EST 1.0 {tablet_as_needed} active Acetamino phen-Codeine #3 300-30 MG eCW1 ([facility]) 6.5 % 01/12/2021 12:00:00 AM EST drops 15 INSTILL 5 DROPS INTO BOTH EARS AT BEDTIME INSTILL 5 DROPS INTO BOTH EARS AT BEDTIME SOLD: 01/12/2021 [facility] Acetaminophen 300 MG / Codeine Phosphate 30 MG Oral Tablet Acetaminophen-Codeine #3 300-30 MG Acetaminophen-Codeine #3 300-30 MG 01/12/2021 12:00:00 AM EST 1.0 {tablet_as_needed} active Acetamino phen-Codeine #3 300-30 MG eCW1 ([facility]) Acetaminophen 300 MG / Codeine Phosphate 30 MG Oral Tablet Acetaminophen-Codeine #3 300-30 MG Acetaminophen-Codeine #3 300-30 MG 01/12/2021 12:00:00 AM EST 1.0 {tablet_as_needed} active Acetamino phen-Codeine #3 300-30 MG eCW1 ([facility]) Acetaminophen 300 MG / Codeine Phosphate 30 MG Oral Tablet Acetaminophen-Codeine #3 300-30 MG Acetaminophen-Codeine #3 300-30 MG 01/12/2021 12:00:00 AM EST 1.0 {tablet_as_needed} active Acetamino phen-Codeine #3 300-30 MG eCW1 ([facility]) carbamide peroxide 65 MG/ML Otic Solution [Debrox] Debrox 6. 5 % Debrox 6.5 % 01/12/2021 12:00:00 AM EST active Debrox 6.5 % eCW1 ([facility]) Acetaminophen 300 MG / Codeine Phosphate 30 MG Oral Tablet Acetaminophen-Codeine #3 300-30 MG Acetaminophen-Codeine #3 300-30 MG 01/12/2021 12:00:00 AM EST 1.0 {tablet_as_needed} suspended Acetami nophen-Codeine #3 300-30 MG eCW1 ([facility]) Acetaminophen 300 MG / Codeine Phosphate 30 MG Oral Tablet Acetaminophen-Codeine #3 300-30 MG Acetaminophen-Codeine #3 300-30 MG 01/12/2021 12:00:00 AM EST 1.0 {tablet_as_needed} active Acetamino phen-Codeine #3 300-30 MG eCW1 ([facility]) carbamide peroxide 65 MG/ML Otic Solution [Debrox] Debrox 6. 5 % Debrox 6.5 % 01/12/2021 12:00:00 AM EST active Debrox 6.5 % eCW1 ([facility]) carbamide peroxide 65 MG/ML Otic Solution [Debrox] Debrox 6. 5 % Debrox 6.5 % 01/12/2021 12:00:00 AM EST active Debrox 6.5 % eCW1 ([facility]) Acetaminophen 300 MG / Codeine Phosphate 30 MG Oral Tablet Acetaminophen-Codeine #3 300-30 MG Acetaminophen-Codeine #3 300-30 MG 01/12/2021 12:00:00 AM EST 1.0 {tablet_as_needed} active Acetamino phen-Codeine #3 300-30 MG eCW1 ([facility]) carbamide peroxide 65 MG/ML Otic Solution [Debrox] Debrox 6. 5 % Debrox 6.5 % 01/12/2021 12:00:00 AM EST active Debrox 6.5 % eCW1 ([facility]) carbamide peroxide 65 MG/ML Otic Solution [Debrox] Debrox 6. 5 % Debrox 6.5 % 01/12/2021 12:00:00 AM EST active Debrox 6.5 % eCW1 ([facility]) 300-30 mg 01/12/2021 12:00:00 AM [...] suspended Acetami nophen-Codeine #3 300-30 MG eCW1 ([facility]) Acetaminophen 300 MG / Codeine Phosphate 30 MG Oral Tablet Acetaminophen-Codeine #3 300-30 MG Acetaminophen-Codeine #3 300-30 MG 01/12/2021 12:00:00 AM EST 1.0 {tablet_as_needed} active Acetamino phen-Codeine #3 300-30 MG eCW1 ([facility]) carbamide peroxide 65 MG/ML Otic Solution [Debrox] Debrox 6. 5 % Debrox 6.5 % 01/12/2021 12:00:00 AM EST active Debrox 6.5 % eCW1 ([facility]) carbamide peroxide 65 MG/ML Otic Solution [Debrox] Debrox 6. 5 % Debrox 6.5 % 01/12/2021 12:00:00 AM EST active Debrox 6.5 % eCW1 ([facility]) carbamide peroxide 65 MG/ML Otic Solution [Debrox] Debrox 6. 5 % Debrox 6.5 % 01/12/2021 12:00:00 AM EST active Debrox 6.5 % eCW1 ([facility]) 500 mg(1,250mg) -200 unit 12/13/2020 12:00:00 AM EST tablet 30 TAKE ONE TABLET BY MOUTH EVERY DAY WITH MEAL TAKE ONE TABLET BY MOUTH EVERY DAY WITH MEAL SOLD: 12/17/2020 [facility] Calcium 500 + D 500-200 MG-UNIT Calcium 500 + D 500-200 MG-U NIT 12/12/2020 12:00:00 AM EST 1.0 {tablet_with_a_meal} active Calcium 500 + D 500- 200 MG-UNIT eCW1 ([facility]) Calcium 500 + D 500-200 MG-UNIT Calcium 500 + D 500-200 MG-U NIT 12/12/2020 12:00:00 AM EST 1.0 {tablet_with_a_meal} active Calcium 500 + D 500- 200 MG-UNIT eCW1 ([facility]) Calcium 500 + D 500-200 MG-UNIT Calcium 500 + D 500-200 MG-U NIT 12/12/2020 12:00:00 AM EST 1.0 {tablet_with_a_meal} active Calcium 500 + D 500- 200 MG-UNIT eCW1 ([facility]) Calcium 500 + D 500-200 MG-UNIT Calcium 500 + D 500-200 MG-U NIT 12/12/2020 12:00:00 AM EST 1.0 {tablet_with_a_meal} active Calcium 500 + D 500- 200 MG-UNIT eCW1 ([facility]) Calcium 500 + D 500-200 MG-UNIT Calcium 500 + D 500-200 MG-U NIT 12/12/2020 12:00:00 AM EST 1.0 {tablet_with_a_meal} active Calcium 500 + D 500- 200 MG-UNIT eCW1 ([facility]) Calcium 500 + D 500-200 MG-UNIT Calcium 500 + D 500-200 MG-U NIT 12/12/2020 12:00:00 AM EST 1.0 {tablet_with_a_meal} active Calcium 500 + D 500- 200 MG-UNIT eCW1 ([facility]) Calcium 500 + D 500-200 MG-UNIT Calcium 500 + D 500-200 MG-U NIT 12/12/2020 12:00:00 AM EST 1.0 {tablet_with_a_meal} active Calcium 500 + D 500- 200 MG-UNIT eCW1 ([facility]) Calcium 500 + D 500-200 MG-UNIT Calcium 500 + D 500-200 MG-U NIT 12/12/2020 12:00:00 AM EST 1.0 {tablet_with_a_meal} active Calcium 500 + D 500- 200 MG-UNIT eCW1 ([facility]) Calcium 500 + D 500-200 MG-UNIT Calcium 500 + D 500-200 MG-U NIT 12/12/2020 12:00:00 AM EST 1.0 {tablet_with_a_meal} active Calcium 500 + D 500- 200 MG-UNIT eCW1 ([facility]) Calcium 500 + D 500-200 MG-UNIT Calcium 500 + D 500-200 MG-U NIT 12/12/2020 12:00:00 AM EST 1.0 {tablet_with_a_meal} active Calcium 500 + D 500- 200 MG-UNIT eCW1 ([facility]) Nystatin 100 UNT/MG Topical Powder [...] 500 + D 500- 200 MG-UNIT eCW1 ([facility]) 50 mcg (2,000 unit) 12/11/2020 [...] EST suspended Mupir ocin 2 % eCW1 ([facility]) Fluconazole 150 MG Oral Tablet [Diflucan] Diflucan 150 MG Di flucan 150 MG 10/10/2020 12:00:00 AM EST 1.0 {tablet} suspended Diflucan 150 MG eCW1 ([facility]) Mupirocin 0.02 MG/MG Topical Ointment Mupirocin 2 % Mupiroci n 2 % 10/10/2020 12:00:00 AM EST suspended Mupir ocin 2 % eCW1 ([facility]) Fluconazole 150 MG Oral Tablet [Diflucan] Diflucan 150 MG Di flucan 150 MG 10/10/2020 12:00:00 AM EST 1.0 {tablet} suspended Diflucan 150 MG eCW1 ([facility]) 2 % 10/10/2020 12:00:00 AM [...] 1.0 {tablet} suspended Diflucan 150 MG eCW1 ([facility]) Mupirocin 0.02 MG/MG Topical Ointment Mupirocin 2 % Mupiroci n 2 % 10/10/2020 12:00:00 AM EST suspended Mupir ocin 2 % eCW1 ([facility]) Fluconazole 150 MG Oral Tablet [Diflucan] Diflucan 150 MG Di flucan 150 MG 10/10/2020 12:00:00 AM EST 1.0 {tablet} suspended Diflucan 150 MG eCW1 ([facility]) 150 mg 10/10/2020 12:00:00 AM [...] EST suspended Mupir ocin 2 % eCW1 ([facility]) 2 % 10/10/2020 12:00:00 AM [...] type / Coverage type Policy ID Covered libertarian ID Covered libertarian's relationship to jane Policy Jane Plan Information [facility] DUAL COMPLETE [id number] Patient is Insured [id number] [facility] COMMUNITY PLAN UNAVAILABLE Patient is Insured UNAVAILABLE MEDICARE [id number] Patient is Insured [id number] MEDICARE [id number] Patient is Insured [id number] MEDICAID [id number] Patient is Insured A [id number] [facility] DUAL COMPLETE NOTNEEDED Patient is Insured NOTNEEDED MEDICARE [id number] Patient is Insured [id number] [facility] COMMUNITY PLAN [id number] Patient is Insured [id number] Pending sale to [facility] [place] [id number] Self [id number] [facility] ([facility] [id number] Self [id number] Pending sale to [facility] Maintenance [facility] ([facility] [id number] Self [id number] Pending sale to [facility] Maintenance [facility] ([facility] [id number] Self [id number] [employer] [id number] SP [id number] [facility] [id number] SP [id number] [facility] [id number] SP [id number] [facility]) O [id number] S [id number] [facility] [id number] SP [id number] [facility] [id number] SP [id number] Pending sale to [facility] Maintenance [facility] ([facility] [id number] Self [id number] [facility]-Medicaid [id number] [facility]-Medicaid [id number] [facility]-Medicaid [id number] [facility]-Medicaid [id number] [facility] [id number] [facility]) O [id number] S [id number] [facility] [id number] SP [id number] ANSI-Medicaid [id number] ANSI-Medicaid [id number] MEDICARE [id number] SP [id number] [facility] [id number] SP [id number] ANSI-Medicaid [id number] ANSI-Medicaid [id number] [facility] Health Maintenance Organization ([facility] [id number] Self [id number] [facility]) O [id number] S [id number] [facility] Health Maintenance Organization ([facility] [id number] Self [id number] [facility] Health Maintenance Organization (O) [id number] Self [id number] [facility] ([facility] [id number] Self [id number] [facility] ([facility] [id number] Self [id number] [facility] ([facility] [id number] Self [id number] [facility] ([facility] [id number] Self [id number] [facility] ([facility] [id number] Self [id number] [facility] ([facility] [id number] Self [id number] PREFERRED MUT INS CO NO FAULT [id number] [facility] ([facility] [id number] Self PREFERRED MUT INS CO NO FAULT [id number] [facility] Maintenance Organization ([facility] [id number] Self UN COMMUNITY PLAN MCDO [id number] SP [id number] [facility] COMMUNITY PLAN MCDO [id number] SP [id number] [facility]) P [id number] S [id number] [facility]) P [id number] S [id number] [place] [id number] SP [id number] [employer] G[employer] [id number] SP [id number] [employer] GOLD [id number] SP [id number] [employer] [id number] SP [id number] [employer] G[employer] [id number] SP [id number] SP [id number] [employer] GOLD SEE INS CARD SP SEE I NS CARD MEDICARE [id number] SP [id number] [employer] GOLD [id number] SP [id number] [employer] HMO O [id number] S [id number] MEDICAID M [id number] S [id number] MEDICAID [id number] SP [id number] Problems, Conditions, and Diagnoses Code Display Name [...] AM EDT [facility] ([facility] N76.1 [id number] Subacute vaginitis Problem 10/17/2020 12:00:00 AM EST eCW1 ([facility]) Surgeries/Procedures Procedure Description Date Indications [...] (BMP) 02/20/2021 12:00:00 AM EDT eCW 1 ([facility]) Name Value Range Interpretation Code Description Data Loretta rce(s) Supporting Document(s) 25 7-18 BLOOD UREA NITROGEN eCW1 ([facility]) 0.85 0.55-1.30 CREATININE FOR GFR eCW1 ([facility]) 76 70-100 GLUCOSE, FASTING eCW1 ([facility]) 107 98-107 CHLORIDE LEVEL eCW1 ([facility]) > 60.0 >45 GLOMERULAR FILTRATION RATE eCW 1 ([facility]) 4.3 3.5-5.1 POTASSIUM SERUM eCW1 ([facility]) 143 136-145 SODIUM LEVEL eCW1 ([facility]) 8.7 8.8-10.2 CALCIUM LEVEL eCW1 ([facility]) 31 21-32 CARBON DIOXIDE LEVEL eCW1 ([facility]) ID Date Data Source NT-PRO BNP 02/20/2021 12:00:00 AM EDT eCW1 ([facility]) Name Value Range Interpretation Code Description Data Loretta rce(s) Supporting Document(s) 12 <125 NT-PRO BNP eCW1 ([facility]) ID Date Data Source ADM SPINE CERVICAL COMPLETE 02/11/2021 12:00:00 AM EDT eCW1 ([facility]) Name Value Range Interpretation Code Description Data Loretta rce(s) Supporting Document(s) ADM SPINE CERVICAL COMPLETE eC W1 ([facility]) ID Date Data Source LIPID PANEL (CARDIAC RISK) 10/17/2020 12:00:00 AM EST eCW1 ( [facility]) Name Value Range Interpretation Code Description Data Loretta rce(s) Supporting Document(s) Triglyceride [Mass/volume] in Serum or Plasma by calculation 104 <150 TRIGLYCERIDES LEVEL eCW1 ([facility]) Cholesterol [Moles/volume] in Serum or Plasma 205 <200 CHOLESTEROL LEVEL eCW1 ([facility]) Cholesterol in HDL [Moles/volume] in Serum or Plasma 89 >40 HDL CHOLESTEROL eCW1 ([facility]) Cholesterol in LDL [Mass/volume] in Serum or Plasma by calculation 95 <100 LDL CHOLESTEROL eCW1 ([facility]) 116 NON-HDL-C eCW1 ([facility]) 2.303 <5 CHOLESTEROL RISK RATIO eCW1 ([facility]) ID Date Data Source FREE T4 & TSH PANEL 10/17/2020 12:00:00 AM EST eCW1 ([facility]) Name Value Range Interpretation Code Description Data Loretta rce(s) Supporting Document(s) 2.090 0.358-3.740 THYROID STIMULATING HORM ONE eCW1 ([facility]) 0.81 0.76-1.46 FREE T4 eCW1 ([facility]) ID Date Data Source Comprehensive Metabolic Profile (CMP) 10/17/2020 12:00:00 AM EST eCW1 ([facility]) Name Value Range Interpretation Code Description Data Loretta rce(s) Supporting Document(s) 24 7-18 BLOOD UREA NITROGEN eCW1 ([facility]) 107 70-100 GLUCOSE, FASTING eCW1 ([facility]) 108 98-107 CHLORIDE LEVEL eCW1 ([facility]) 4.3 3.5-5.1 POTASSIUM SERUM eCW1 ([facility]) 1.16 0.55-1.30 CREATININE FOR GFR eCW1 ([facility]) 143 136-145 SODIUM LEVEL eCW1 ([facility]) 49.6 >45 GLOMERULAR FILTRATION RATE eCW 1 ([facility]) 31 21-32 CARBON DIOXIDE LEVEL eCW1 ([facility]) 18 7-37 AST/SGOT eCW1 ([facility]) 9.4 8.8-10.2 CALCIUM LEVEL eCW1 ([facility]) 27 12-78 ALT/SGPT eCW1 ([facility]) 3.8 3.2-5.2 ALBUMIN eCW1 ([facility]) 93 45-117 ALKALINE PHOSPHATASE eCW1 ([facility]) 7.7 6.4-8.2 TOTAL PROTEIN eCW1 ([facility]) 0.4 0.2-1.0 BILIRUBIN,TOTAL eCW1 ([facility]) 1.0 1.2-2.2 ALBUMIN/GLOBULIN RATIO eCW1 ([facility]) ID Date Data Source CBC - Complete Blood Count 10/17/2020 12:00:00 AM EST eCW1 ( [facility]) Name Value Range Interpretation Code Description Data Loretta rce(s) Supporting Document(s) 13.7 12.0-15.5 eCW1 ([facility]) 7.1 4.0-10.0 eCW1 ([facility]) 4.72 4.00-5.40 eCW1 ([facility]) 44.6 36.0-47.0 eCW1 ([facility]) 30.7 32.0-36.5 eCW1 ([facility]) 94.5 80.0-96.0 eCW1 ([facility]) 29.0 27.0-33.0 eCW1 ([facility]) 13.7 11.5-14.5 eCW1 ([facility]) 302 150-450 eCW1 ([facility]) ID Date Data Source URINE CULTURE 10/10/2020 12:00:00 AM EST eCW1 ([facility]) Name Value Range Interpretation Code Description Data Loretta rce(s) Supporting Document(s) URINE CULTURE eCW1 ([facility]) Procedure Social History Code Duration Value Status Description Data Source(s ) Smoking 09/01/2021 12:00:00 AM EDT Former Smoker completed Former Smoker eCW1 ([facility]) Smoking 09/01/2021 12:00:00 AM EDT Former Smoker completed Former Smoker eCW1 ([facility]) Smoking 03/25/2021 12:00:00 AM EDT Former Smoker completed Former Smoker eCW1 ([facility]) Smoking 02/26/2021 12:00:00 AM EDT Former Smoker completed Former Smoker eCW1 ([facility]) Smoking 02/26/2021 12:00:00 AM EDT Former Smoker completed Former Smoker eCW1 ([facility]) Smoking 02/20/2021 12:00:00 AM EDT Former Smoker completed Former Smoker eCW1 ([facility]) Smoking 02/20/2021 12:00:00 AM EDT Former Smoker completed Former Smoker eCW1 ([facility]) Smoking 02/11/2021 12:00:00 AM EDT Former Smoker completed Former Smoker eCW1 ([facility]) Smoking 02/11/2021 12:00:00 AM EDT Former Smoker completed Former Smoker eCW1 ([facility]) Smoking 01/12/2021 12:00:00 AM EST Former Smoker completed Former Smoker eCW1 ([facility]) Smoking 10/17/2020 12:00:00 AM EST Former Smoker completed Former Smoker eCW1 ([facility]) Smoking 10/17/2020 12:00:00 AM EST Former Smoker completed Former Smoker eCW1 ([facility]) Smoking 10/17/2020 12:00:00 AM EST Former Smoker completed Former Smoker eCW1 ([facility]) Smoking 10/17/2020 12:00:00 AM EST Former Smoker completed Former Smoker eCW1 ([facility]) Smoking 10/09/2020 12:00:00 AM EST Former Smoker completed Former Smoker eCW1 ([facility]) Vital Signs ID Date Data Source UNK Name Value Range Interpretation Code Description Data Source(s) Body weight 203 [lb_av] 203 [lb_av] eCW1 ([facility]) Body height 63 [in_i] 63 [in_i] eCW1 ([facility]) Body mass index (BMI) [Ratio] 35.96 kg/m2 35.96 kg/m2 eCW1 ([facility]) Heart rate 99 /min 99 /min eCW1 ([facility]) Respiratory rate 18 /min 18 /min eCW1 ([facility]) Body temperature 98.4 [degF] 98.4 [degF] eCW1 ( [facility]) Systolic blood pressure 120 mm[Hg] 120 mm[Hg] e CW1 ([facility]) Diastolic blood pressure 80 mm[Hg] 80 mm[Hg] eCW1 ([facility]) Body weight 235 [lb_av] 235 [lb_av] eCW1 ([facility]) Body height 63 [in_i] 63 [in_i] eCW1 ([facility]) Body mass index (BMI) [Ratio] 41.62 kg/m2 41.62 kg/m2 eCW1 ([facility]) Heart rate 104 /min 104 /min eCW1 ([facility]) Respiratory rate 18 /min 18 /min eCW1 ([facility]) Body temperature 98.7 [degF] 98.7 [degF] eCW1 ( [facility]) Systolic blood pressure 134 mm[Hg] 134 mm[Hg] e CW1 ([facility]) Diastolic blood pressure 88 mm[Hg] 88 mm[Hg] eCW1 ([facility]) Body mass index (BMI) [Ratio] [...] Body weight 208 [lb_av] 208 [lb_av] eCW1 ([facility]) Body height 63 [in_i] 63 [in_i] eCW1 ([facility]) Body mass index (BMI) [Ratio] 36.84 kg/m2 36.84 kg/m2 eCW1 ([facility]) Heart rate 73 /min 73 /min eCW1 ([facility]) Respiratory rate 18 /min 18 /min eCW1 ([facility]) Body temperature 97.6 [degF] 97.6 [degF] eCW1 ( [facility]) Systolic blood pressure 138 mm[Hg] 138 mm[Hg] e CW1 ([facility]) Diastolic blood pressure 84 mm[Hg] 84 mm[Hg] eCW1 ([facility]) Body weight 210 [lb_av] 210 [lb_av] eCW1 ([facility]) Body height 63 [in_i] 63 [in_i] eCW1 ([facility]) Body mass index (BMI) [Ratio] 37.20 kg/m2 37.20 kg/m2 eCW1 ([facility]) Heart rate 101 /min 101 /min eCW1 ([facility]) Respiratory rate 18 /min 18 /min eCW1 ([facility]) Body temperature 97.2 [degF] 97.2 [degF] eCW1 ( [facility]) Systolic blood pressure 130 mm[Hg] 130 mm[Hg] e CW1 ([facility]) Diastolic blood pressure 82 mm[Hg] 82 mm[Hg] eCW1 ([facility]) Body weight 214 [lb_av] 214 [lb_av] eCW1 ([facility]) Body height 63 [in_i] 63 [in_i] eCW1 ([facility]) Body mass index (BMI) [Ratio] 37.90 kg/m2 37.90 kg/m2 eCW1 ([facility]) Heart rate 93 /min 93 /min eCW1 ([facility]) Respiratory rate 97.8 /min 97.8 /min eCW1 ([facility]) Body temperature 97.6 [degF] 97.6 [degF] eCW1 ( [facility]) Systolic blood pressure 166 mm[Hg] 166 mm[Hg] e CW1 ([facility]) Diastolic blood pressure 88 mm[Hg] 88 mm[Hg] eCW1 ([facility]) Diastolic blood pressure 76 mm[Hg] [...] Body weight 203.4 [lb_av] 203.4 [lb_av] eCW1 ([facility]) Body height 63 [in_i] 63 [in_i] eCW1 ([facility]) Body mass index (BMI) [Ratio] 36.03 kg/m2 36.03 kg/m2 eCW1 ([facility]) Heart rate 125 /min 125 /min eCW1 ([facility]) Respiratory rate 18 /min 18 /min eCW1 ([facility]) Body temperature 98 [degF] 98 [degF] eCW1 ([facility]) Systolic blood pressure 120 mm[Hg] 120 mm[Hg] e CW1 ([facility]) Diastolic blood pressure 68 mm[Hg] 68 mm[Hg] eCW1 ([facility]) Body weight 198 [lb_av] 198 [lb_av] eCW1 ([facility]) Body height 63 [in_i] 63 [in_i] eCW1 ([facility]) Body mass index (BMI) [Ratio] 35.07 kg/m2 35.07 kg/m2 eCW1 ([facility]) Heart rate 123 /min 123 /min eCW1 ([facility]) Respiratory rate 18 /min 18 /min eCW1 ([facility]) Body temperature 98.4 [degF] 98.4 [degF] eCW1 ( [facility]) Systolic blood pressure 132 mm[Hg] 132 mm[Hg] e CW1 ([facility]) Diastolic blood pressure 76 mm[Hg] 76 mm[Hg] eCW1 ([facility]) Patient Treatment Plan of Care Planned Activity Planned Date Details Description Data Source (s) meloxicam 15 MG Oral Tablet 09/01/2021 12:00:00 AM EDT eCW1 ([facility]) meloxicam 15 MG Oral Tablet 09/01/2021 12:00:00 AM EDT eCW1 ([facility]) Spironolactone 25 MG Oral Tablet 02/26/2021 12:00:00 AM EDT eCW1 ([facility]) Spironolactone 25 MG Oral Tablet 02/26/2021 12:00:00 AM EDT eCW1 ([facility]) Furosemide 40 MG Oral Tablet 02/20/2021 12:00:00 AM EDT eCW1 ([facility]) Furosemide 40 MG Oral Tablet 02/20/2021 12:00:00 AM EDT eCW1 ([facility]) Acetaminophen 300 MG / Codeine Phosphate 30 MG Oral Ta blet 02/11/2021 12:00:00 AM EDT eCW1 ([facility]) Acetaminophen 300 MG / Codeine Phosphate 30 MG Oral Ta blet 02/11/2021 12:00:00 AM EDT eCW1 ([facility]) carbamide peroxide 65 MG/ML Otic Solution [Debrox] 01/12/2021 12 :00:00 AM EST eCW1 ([facility]) Acetaminophen 300 MG / Codeine Phosphate 30 MG Oral Ta blet 01/12/2021 12:00:00 AM EST eCW1 ([facility]) Calcium 500 + D 500-200 MG-UNIT 12/12/2020 12:00:00 AM EST eCW1 ([facility]) Calcium 500 + D 500-200 MG-UNIT 12/12/2020 12:00:00 AM EST eCW1 ([facility]) Calcium 500 + D 500-200 MG-UNIT 12/12/2020 12:00:00 AM EST eCW1 ([facility])
[2021-09-29 14:44] LABS: BASO # 0.1 10^3/uL (0.0-0.2); BASO % 0.7 % (0.0-1.0); EOS # 0.1 10^3/uL (0.0-0.5); EOS % 1.9 % (0.0-3.0); HEMATOCRIT 38.9 % (36.0-47.0); HEMOGLOBIN 12.3 g/dl (12.0-15.5); LYMPH # 1.5 10^3/uL (1.5-5.0); LYMPH % 20.5 % (24.0-44.0); MEAN CORPUSCULAR HEMOGLOBIN 29.4 pg (27.0-33.0); MEAN CORPUSCULAR HGB CONC 31.6 g/dl (32.0-36.5); MEAN CORPUSCULAR VOLUME 93.1 fl (80.0-96.0); MONO # 0.6 10^3/uL (0.0-0.8); NEUTROPHILS # 5.2 10^3/uL (1.5-8.5); NEUTROPHILS % 68.6 % (36.0-66.0); PLATELET COUNT, AUTOMATED 264 10^3/uL (150-450); RED BLOOD COUNT 4.18 10^6/uL (4.00-5.40); WHITE BLOOD COUNT 7.5 10^3/uL (4.0-10.0)
[2021-09-29 15:03] LABS: ERYTHROCYTE SEDIMENTATION RATE 18 mm/hr (0-30)
[2021-09-29 15:10] LABS: ALBUMIN 3.2 GM/DL (3.2-5.2); ALT/SGPT 30 U/L (12-78); BILIRUBIN,TOTAL 0.3 MG/DL (0.2-1.0); BLOOD UREA NITROGEN 17 MG/DL (7-18); C REACTIVE PROTEIN QUANTITATIV 0.32 MG/DL (0.00-0.30); CALCIUM LEVEL 8.8 MG/DL (8.8-10.2); CARBON DIOXIDE LEVEL 29 MEQ/L (21-32); CHLORIDE LEVEL 110 MEQ/L (98-107); CK-MB VALUE MASS 3.3 NG/ML (<3.6); CPK CREATINE PHOSPHOKINASE 345 U/L (26-192); GLOMERULAR FILTRATION RATE 58.7 (>45); GLUCOSE, FASTING 101 MG/DL (70-100); MB/CK RELATIVE INDEX 0.96 (< OR =4); NT-PRO BNP 41 PG/ML (<125); POTASSIUM SERUM 3.7 MEQ/L (3.5-5.1); SODIUM LEVEL 141 MEQ/L (136-145); TOTAL PROTEIN 6.8 GM/DL (6.4-8.2); TROPONIN I < 0.02 NG/ML (< 0.10)
--- NOTE | 2021-09-29 15:11 | REP ---
INDICATION: swelling erythema bilat trauma 6 weeks ago. COMPARISON: 01/17/2020 TECHNIQUE: Multiple ultrasonographic images of the deep venous structures of the bilateral lower extremities were obtained from the level of the common femoral vein to the popliteal vein in the longitudinal and transverse scan planes along with Doppler interrogation and color flow Doppler imaging. Imaging of the proximal calves was performed bilaterally. FINDINGS: There is no abnormal echogenic material seen within any of the visualized deep venous structures that would suggest acute thrombosis. Coaptation is unremarkable throughout. Doppler interrogation shows an expected response to respiratory variability and augmentation. The color flow Doppler images show what appears to be a normal vascular pattern throughout. Bilateral posterior tibial and peroneal of veins are seen and without evidence of thrombus. There is again noted to be a popliteal fossa cyst on the right at 2.5 x 1.1 x 0.8 cm. IMPRESSION: There is no ultrasonographic evidence of deep venous thrombosis involving any of the visualized deep venous structures of the bilateral lower extremities as described above. Both posterior tibial and peroneal veins in the proximal calves are also without thrombus. Popliteal fossa cyst again seen on the right 2.5 x 1.1 x 0.8 cm. Not significantly changed in size from 01/17. Accredited by the [employer] in Vascular Peripheral Ultrasound. <Electronically signed by Prateek Land > 09/29/21 [id number]
--- NOTE | 2021-09-29 16:04 | REP ---
INDICATION: trauma 6 weeks ago, pain bilat COMPARISON: 08/15/2021. TECHNIQUE: Three views of bilateral shoulders. FINDINGS: There is no evidence of acute fracture, dislocation, or intrinsic bone disease. IMPRESSION: No fracture or dislocation. <Electronically signed by Carlton Rosario > 09/29/21 1600
--- NOTE | 2021-09-29 16:14 | REP ---
INDICATION: trauma 6 weeks ago, pain bilat. COMPARISON: None. TECHNIQUE: Four views each foot FINDINGS: Bilateral: The joint spaces are symmetric and relatively well maintained. There is no evidence of acute fracture or destructive osseous lesion. There are bilateral plantar calcaneal heel spurs. There is an incidental unicameral cyst involving the proximal phalanx of the 1st digit of the left foot. IMPRESSION: No acute osseous abnormality bilateral. <Electronically signed by Arturo Martin > 09/29/21 [id number]
--- NOTE | 2021-09-29 16:15 | REP ---
INDICATION: trauma 6 weeks ago, pain bilat. COMPARISON: 06/26/2021. TECHNIQUE: Single portable AP view of the chest was performed. FINDINGS: There is no acute infiltrate or pulmonary edema. Lungs are clear. The heart is not significantly enlarged. The mediastinal silhouette is unremarkable. The visualized osseous structures are intact. IMPRESSION: No acute pulmonary disease. <Electronically signed by Carlton Rosario > 09/29/21 [id number]
[2021-09-29 17:55] VITALS: BP 130/92
[2021-09-29] MEDS ORDERED: CEPH500C PO (17:55)
[2021-09-29] MEDS ORDERED: VENTAER INH (18:05)
[2021-09-29] MEDS ORDERED: FLUTISP NARES (18:14)
--- NOTE | 2021-09-29 18:39 | ECGEPIP ---
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
== END 2021-09-29 18:24 | disposition home or self-care (01) ==
LOC: M ED 11:07
DX: M24.811 Other specific joint derangements of right shoulder, not elsewhere classified (principal); M24.812 Other specific joint derangements of left shoulder, not elsewhere classified; M77.31 Calcaneal spur, right foot; M77.32 Calcaneal spur, left foot; M71.21 Synovial cyst of popliteal space [Baker], right knee; F43.0 Acute stress reaction; L03.116 Cellulitis of left lower limb; R05.9 Cough, unspecified; J45.909 Unspecified asthma, uncomplicated; Z86.73 Personal history of transient ischemic attack (TIA), and cerebral infarction without residual deficits; Z79.82 Long term (current) use of aspirin; Z91.010 Allergy to peanuts

== ENCOUNTER → 2022-03-10 | Outpatient (REF) | payer OTHER, MEDICAID ==
[~2022-03-10] MED LIST changes: +CEPH500C PO
[2022-03-10 12:17] LABS: BASO # 0.1 10^3/uL (0.0-0.2); BASO % 0.7 % (0.0-1.0); EOS # 0.1 10^3/uL (0.0-0.5); EOS % 1.8 % (0.0-3.0); HEMATOCRIT 42.2 % (36.0-47.0); HEMOGLOBIN 13.4 g/dl (12.0-15.5); LYMPH # 1.5 10^3/uL (1.5-5.0); LYMPH % 21.3 % (24.0-44.0); MEAN CORPUSCULAR HEMOGLOBIN 29.8 pg (27.0-33.0); MEAN CORPUSCULAR HGB CONC 31.8 g/dl (32.0-36.5); MONO # 0.5 10^3/uL (0.0-0.8); MONO % 7.4 % (2.0-8.0); NEUTROPHILS # 4.9 10^3/uL (1.5-8.5); NEUTROPHILS % 68.5 % (36.0-66.0); PLATELET COUNT, AUTOMATED 234 10^3/uL (150-450); RED BLOOD COUNT 4.49 10^6/uL (4.00-5.40); WHITE BLOOD COUNT 7.2 10^3/uL (4.0-10.0)
[2022-03-10 12:42] LABS: ALT/SGPT 30 U/L (12-78); BILIRUBIN,TOTAL 0.5 MG/DL (0.2-1.0); BLOOD UREA NITROGEN 25 MG/DL (7-18); CARBON DIOXIDE LEVEL 30 MEQ/L (21-32); CHLORIDE LEVEL 107 MEQ/L (98-107); CHOLESTEROL LEVEL 170 MG/DL (<200); CREATININE FOR GFR 0.96 MG/DL (0.55-1.30); GLOMERULAR FILTRATION RATE > 60.0 (>45); GLUCOSE, FASTING 86 MG/DL (70-100); HDL CHOLESTEROL 82 MG/DL (>40); POTASSIUM SERUM 4.5 MEQ/L (3.5-5.1); SODIUM LEVEL 141 MEQ/L (136-145); TRIGLYCERIDES LEVEL 61 MG/DL (<150)
[2022-03-10 12:43] LABS: ALBUMIN 3.6 GM/DL (3.2-5.2); CHOLESTEROL RISK RATIO 2.073 (<5); FREE T4 0.78 NG/DL (0.76-1.46); LDL CHOLESTEROL 76 MG/DL (<100); NON-HDL-C 88 MG/DL; TOTAL 25(OH) VITAMIN D 19.4 NG/ML (30.0-100.0); TOTAL PROTEIN 7.1 GM/DL (6.4-8.2)
== END ==
LOC: M SFHCADAM 08:51
PROVIDERS: ATTEND Family Medicine
DX: I11.9 Hypertensive heart disease without heart failure (principal); I63.50 Cerebral infarction due to unspecified occlusion or stenosis of unspecified cerebral artery; E78.2 Mixed hyperlipidemia; E55.9 Vitamin D deficiency, unspecified

== ENCOUNTER → 2022-03-10 | Outpatient (CLI) | payer OTHER, MEDICAID | LOC: M ADAMS 09:07 | PROVIDERS: ATTEND Family Medicine | DX: M77.31 Calcaneal spur, right foot (principal); M79.671 Pain in right foot ==

== ENCOUNTER 2022-10-21 10:17 | Emergency (ER) | payer OTHER, MEDICAID ==
[~2022-10-21] VITALS: Ht 160 cm; Wt 93.4 kg
[2022-10-21 10:17] VITALS: BP 164/85
[~2022-10-21 10:17] MED LIST changes: +DIFL200T PO; +MULT400T10; +NITR1CAP11 PO
[2022-10-21 13:00] LABS: BASO # 0.1 10^3/uL (0.0-0.2); BASO % 0.8 % (0.0-1.0); EOS # 0.1 10^3/uL (0.0-0.5); EOS % 0.7 % (0.0-3.0); HEMOGLOBIN 12.7 g/dl (12.0-15.5); LYMPH # 1.6 10^3/uL (1.5-5.0); MEAN CORPUSCULAR HEMOGLOBIN 29.2 pg (27.0-33.0); MEAN CORPUSCULAR HGB CONC 31.8 g/dl (32.0-36.5); MONO # 0.5 10^3/uL (0.0-0.8); MONO % 6.3 % (2.0-8.0); NEUTROPHILS % 69.9 % (36.0-66.0); PLATELET COUNT, AUTOMATED 264 10^3/uL (150-450); RED BLOOD COUNT 4.35 10^6/uL (4.00-5.40); WHITE BLOOD COUNT 7.1 10^3/uL (4.0-10.0)
[2022-10-21 13:22] LABS: ALBUMIN 3.8 G/DL (3.2-5.2); ALT/SGPT 19 U/L (7.0-40); BILIRUBIN,TOTAL 0.6 MG/DL (0.3-1.2); BLOOD UREA NITROGEN 16 MG/DL (9-23); CALCIUM LEVEL 8.9 MG/DL (8.3-10.6); CARBON DIOXIDE LEVEL 29 MMOL/L (20-31); CHLORIDE LEVEL 103 MMOL/L (98-107); CREATININE FOR GFR 0.84 MG/DL (0.55-1.30); GLOMERULAR FILTRATION RATE > 60.0 (>45); GLUCOSE, FASTING 101 MG/DL (74-106); POTASSIUM SERUM 3.9 MMOL/L (3.5-5.1); SODIUM LEVEL 139 MMOL/L (136-145); TOTAL PROTEIN 7.2 G/DL (5.7-8.2)
[2022-10-21 13:49] LABS: RSV AMPLIFICATION NEGATIVE (NEGATIVE)
== END 2022-10-21 15:35 | disposition home or self-care (01) ==
LOC: M ED 10:17
DX: R53.1 Weakness (principal); Z60.9 Problem related to social environment, unspecified; I10 Essential (primary) hypertension; E78.5 Hyperlipidemia, unspecified; Z86.73 Personal history of transient ischemic attack (TIA), and cerebral infarction without residual deficits; Z87.891 Personal history of nicotine dependence

== ENCOUNTER 2022-11-11 12:43 | Emergency (ER) | payer OTHER, MEDICAID ==
[~2022-11-11] VITALS: Ht 160 cm; Wt 93.5 kg
[2022-11-11] MEDS ORDERED: RABIES IMMUNE GLOBULIN 300 INTERNATIONAL UNITS/1ML VIAL ONE (12:44)
[2022-11-11] MEDS ORDERED: BOOSTRIX/ADACEL VACCINE (DIPHTH/PERTUSS/ACELL/TETANUS) 0.5ML SYR IM.IMMUN ONE (14:40)
[2022-11-11] MEDS ORDERED: AMPICILLIN SOD/SULBACTAM SOD 3 GM in D5W MINI-BAG PLUS 100 ML IV ONE (14:40)
[2022-11-11 15:13] LABS: BASO % 0.4 % (0.0-1.0); EOS # 0.2 10^3/uL (0.0-0.5); HEMATOCRIT 41.3 % (36.0-47.0); LYMPH # 1.4 10^3/uL (1.5-5.0); LYMPH % 17.8 % (24.0-44.0); MEAN CORPUSCULAR HEMOGLOBIN 29.3 pg (27.0-33.0); MEAN CORPUSCULAR HGB CONC 31.5 g/dl (32.0-36.5); MONO # 0.7 10^3/uL (0.0-0.8); MONO % 8.6 % (2.0-8.0); NEUTROPHILS # 5.7 10^3/uL (1.5-8.5); NEUTROPHILS % 70.8 % (36.0-66.0); PLATELET COUNT, AUTOMATED 254 10^3/uL (150-450); RED BLOOD COUNT 4.44 10^6/uL (4.00-5.40)
[2022-11-11 15:30] LABS: BLOOD UREA NITROGEN 28 MG/DL (9-23); CALCIUM LEVEL 8.5 MG/DL (8.3-10.6); CARBON DIOXIDE LEVEL 31 MMOL/L (20-31); CHLORIDE LEVEL 105 MMOL/L (98-107); CREATININE FOR GFR 0.91 MG/DL (0.55-1.30); GLOMERULAR FILTRATION RATE > 60.0 (>45); GLUCOSE, FASTING 95 MG/DL (74-106); POTASSIUM SERUM 4.3 MMOL/L (3.5-5.1); SODIUM LEVEL 142 MMOL/L (136-145)
[2022-11-11 15:37] LABS: ERYTHROCYTE SEDIMENTATION RATE 12 mm/hr (0-30)
[2022-11-11] MEDS ORDERED: RABIES VACCINE HUMAN 2.5 INTERNATIONAL UNITS/ML VIAL IM ONE (16:35)
[2022-11-11] MEDS ORDERED: RABIES IMMUNE GLOBULIN 1500 INTERNATIONAL UNIT/5ML VIAL IM.IMMUN ONE ×3 (16:35→17:10)
[2022-11-11] MEDS ORDERED: AMOX875T2 PO (18:21)
[2022-11-11 18:31] VITALS: BP 136/70
== END 2022-11-11 18:33 | disposition home or self-care (01) ==
LOC: M ED 12:43
DX: S61.231A Puncture wound without foreign body of left index finger without damage to nail, initial encounter (principal); W55.01XA Bitten by cat, initial encounter; Y92.099 Unspecified place in other non-institutional residence as the place of occurrence of the external cause; J44.9 Chronic obstructive pulmonary disease, unspecified; I25.2 Old myocardial infarction; I25.10 Atherosclerotic heart disease of native coronary artery without angina pectoris; Z86.73 Personal history of transient ischemic attack (TIA), and cerebral infarction without residual deficits; Z87.891 Personal history of nicotine dependence; Z79.82 Long term (current) use of aspirin; Z79.899 Other long term (current) drug therapy; Z91.010 Allergy to peanuts
CPT/HCPCS: 73140; 80048; 85025; 85652; 86140; 90375; 90471; 90675; 90715; 96365; 96372; 99284; J0295

== ENCOUNTER 2022-11-14 10:29 | Emergency (ER) | payer OTHER, MEDICAID ==
[~2022-11-14] VITALS: Ht 160 cm; Wt 93.1 kg
[~2022-11-14 10:29] MED LIST changes: +AMOX875T2 PO
[2022-11-14] MEDS ORDERED: RABIES VACCINE HUMAN 2.5 INTERNATIONAL UNITS/ML VIAL IM ONE (11:15)
[2022-11-14] MEDS ORDERED: VENTAER INH (11:40)
[2022-11-14 12:11] VITALS: BP 128/76
== END 2022-11-14 12:04 | disposition home or self-care (01) ==
LOC: M ED 10:29
DX: Z23 Encounter for immunization (principal); Z20.3 Contact with and (suspected) exposure to rabies; S61.251D Open bite of left index finger without damage to nail, subsequent encounter; W55.01XD Bitten by cat, subsequent encounter; I51.9 Heart disease, unspecified; I25.2 Old myocardial infarction; F41.9 Anxiety disorder, unspecified; F17.200 Nicotine dependence, unspecified, uncomplicated; Z79.82 Long term (current) use of aspirin; Z79.899 Other long term (current) drug therapy; Z91.010 Allergy to peanuts

== ENCOUNTER 2022-11-18 10:27 | Emergency (ER) | payer OTHER, MEDICAID ==
[~2022-11-18] VITALS: Ht 160 cm; Wt 93.4 kg
[2022-11-18] MEDS ORDERED: RABIES VACCINE HUMAN 2.5 INTERNATIONAL UNITS/ML VIAL IM ONE (12:05)
[2022-11-18] MEDS ORDERED: PROA1AER2 INH (12:15)
[2022-11-18 12:30] VITALS: BP 153/81
== END 2022-11-18 12:32 | disposition home or self-care (01) ==
LOC: M ED 10:27
DX: Z23 Encounter for immunization (principal); Z20.3 Contact with and (suspected) exposure to rabies

== ENCOUNTER 2022-11-25 12:38 | Emergency (ER) | payer OTHER, MEDICAID ==
[~2022-11-25] VITALS: Ht 160 cm; Wt 94.1 kg
[~2022-11-25 12:38] MED LIST changes: +PROA1AER2 INH
[2022-11-25] MEDS ORDERED: RABIES VACCINE HUMAN 2.5 INTERNATIONAL UNITS/ML VIAL IM ONE (14:10)
[2022-11-25 15:11] VITALS: BP 124/82
== END 2022-11-25 15:15 | disposition home or self-care (01) ==
LOC: M ED 12:38
DX: Z23 Encounter for immunization (principal); Z20.3 Contact with and (suspected) exposure to rabies; S61.251D Open bite of left index finger without damage to nail, subsequent encounter; W55.01XD Bitten by cat, subsequent encounter; I25.2 Old myocardial infarction; J44.9 Chronic obstructive pulmonary disease, unspecified; D64.9 Anemia, unspecified; Z98.51 Tubal ligation status; Z86.73 Personal history of transient ischemic attack (TIA), and cerebral infarction without residual deficits; M81.0 Age-related osteoporosis without current pathological fracture; G89.29 Other chronic pain; M54.9 Dorsalgia, unspecified; Z91.010 Allergy to peanuts; Z79.51 Long term (current) use of inhaled steroids; Z79.82 Long term (current) use of aspirin; Z79.899 Other long term (current) drug therapy

== ENCOUNTER 2022-12-15 11:19 | Emergency (ER) | payer OTHER, MEDICAID ==
[~2022-12-15] VITALS: Ht 160 cm; Wt 90.3 kg
[2022-12-15 11:20] VITALS: BP 150/88
[2022-12-15 14:07] LABS: BASO # 0.1 10^3/uL (0.0-0.2); BASO % 0.9 % (0.0-1.0); EOS # 0.1 10^3/uL (0.0-0.5); EOS % 1.2 % (0.0-3.0); HEMATOCRIT 42.1 % (36.0-47.0); HEMOGLOBIN 13.4 g/dl (12.0-15.5); LYMPH % 28.6 % (24.0-44.0); MEAN CORPUSCULAR HEMOGLOBIN 29.3 pg (27.0-33.0); MEAN CORPUSCULAR HGB CONC 31.8 g/dl (32.0-36.5); MEAN CORPUSCULAR VOLUME 92.1 fl (80.0-96.0); MONO # 0.5 10^3/uL (0.0-0.8); NEUTROPHILS # 4.2 10^3/uL (1.5-8.5); PLATELET COUNT, AUTOMATED 239 10^3/uL (150-450); RED BLOOD COUNT 4.57 10^6/uL (4.00-5.40); WHITE BLOOD COUNT 6.8 10^3/uL (4.0-10.0)
[2022-12-15 14:31] LABS: BLOOD UREA NITROGEN 21 MG/DL (9-23); CALCIUM LEVEL 8.9 MG/DL (8.3-10.6); CARBON DIOXIDE LEVEL 26 MMOL/L (20-31); CHLORIDE LEVEL 108 MMOL/L (98-107); CREATININE FOR GFR 0.88 MG/DL (0.55-1.30); GLOMERULAR FILTRATION RATE > 60.0 (>45); GLUCOSE, FASTING 99 MG/DL (74-106); POTASSIUM SERUM 4.2 MMOL/L (3.5-5.1); SODIUM LEVEL 142 MMOL/L (136-145)
[2022-12-15] MEDS ORDERED: PYRI1TAB5 PO (14:35)
[2022-12-15] MEDS ORDERED: CEFD300C PO (14:36)
== END 2022-12-15 14:51 | disposition home or self-care (01) ==
LOC: M ED 11:19
DX: N39.0 Urinary tract infection, site not specified (principal); I10 Essential (primary) hypertension; J45.909 Unspecified asthma, uncomplicated; Z87.891 Personal history of nicotine dependence; Z79.82 Long term (current) use of aspirin; Z79.899 Other long term (current) drug therapy; Z91.010 Allergy to peanuts

== ENCOUNTER → 2022-12-21 | Outpatient (REF) | payer OTHER, MEDICAID ==
[~2022-12-21] MED LIST changes: +CEFD300C PO; +PYRI1TAB5 PO
[2022-12-21 19:20] LABS: APPEARANCE, URINE MANUAL CLEAR (CLEAR); COLOR, URINE MANUAL LT YELLOW (YELLOW)
[2022-12-21 19:21] LABS: BILIRUBIN, URINE MANUAL NEGATIVE (NEGATIVE); BLOOD URINE MANUAL NEGATIVE (NEGATIVE); GLUCOSE, URINE (UA) MANUAL NEGATIVE (NEGATIVE); KETONE, URINE MANUAL NEGATIVE (NEGATIVE); NITRITE, URINE MANUAL NEGATIVE (NEGATIVE); PH,URINE MAN 7.5 UNITS (5.0 - 7.0); PROTEIN, URINE MANUAL NEGATIVE (NEGATIVE); UROBILINOGEN, URINE MANUAL NORMAL (NORMAL)
[2022-12-21 19:22] LABS: LEUKOCYTE ESTERASE, URINE MAN NEGATIVE (NEGATIVE)
== END ==
LOC: M SFHCADAM 17:30
PROVIDERS: ATTEND Family Medicine
DX: R30.0 Dysuria (principal)

== ENCOUNTER → 2023-02-03 | Outpatient (REF) | payer OTHER, MEDICAID ==
[2023-02-03 16:21] LABS: BASO # 0.1 10^3/uL (0.0-0.2); BASO % 0.8 % (0.0-1.0); EOS # 0.1 10^3/uL (0.0-0.5); EOS % 1.4 % (0.0-3.0); HEMATOCRIT 40.1 % (36.0-47.0); HEMOGLOBIN 12.8 g/dl (12.0-15.5); LYMPH # 1.7 10^3/uL (1.5-5.0); LYMPH % 23.6 % (24.0-44.0); MEAN CORPUSCULAR HEMOGLOBIN 29.7 pg (27.0-33.0); MEAN CORPUSCULAR HGB CONC 31.9 g/dl (32.0-36.5); MONO # 0.6 10^3/uL (0.0-0.8); MONO % 8.2 % (2.0-8.0); NEUTROPHILS # 4.8 10^3/uL (1.5-8.5); NEUTROPHILS % 65.6 % (36.0-66.0); PLATELET COUNT, AUTOMATED 230 10^3/uL (150-450); RED BLOOD COUNT 4.31 10^6/uL (4.00-5.40); WHITE BLOOD COUNT 7.3 10^3/uL (4.0-10.0)
[2023-02-03 16:46] LABS: HEMOGLOBIN A1c 5.8 % (4.0-6.0)
[2023-02-03 16:55] LABS: ALBUMIN 3.5 G/DL (3.2-5.2); ALKALINE PHOSPHATASE 106 U/L (46-116); ALT/SGPT 29 U/L (7.0-40); AST/SGOT 18 U/L (<34); BILIRUBIN,TOTAL 0.4 MG/DL (0.3-1.2); BLOOD UREA NITROGEN 23 MG/DL (9-23); CALCIUM LEVEL 8.8 MG/DL (8.3-10.6); CARBON DIOXIDE LEVEL 28 MMOL/L (20-31); CHLORIDE LEVEL 106 MMOL/L (98-107); CHOLESTEROL LEVEL 169 MG/DL (<200); CHOLESTEROL RISK RATIO 2.05 (<5); CREATININE FOR GFR 0.77 MG/DL (0.55-1.30); GLOMERULAR FILTRATION RATE > 60.0 (>45); GLUCOSE, FASTING 97 MG/DL (74-106); HDL CHOLESTEROL 82.1 MG/DL (>40); LDL CHOLESTEROL 71.1 MG/DL (<100); NON-HDL-C 86.9 MG/DL; POTASSIUM SERUM 3.9 MMOL/L (3.5-5.1); SODIUM LEVEL 140 MMOL/L (136-145); TOTAL PROTEIN 6.7 G/DL (5.7-8.2); TRIGLYCERIDES LEVEL 79 MG/DL (<150)
[2023-02-03 16:56] LABS: THYROID STIMULATING HORMONE 1.672 uIU/ML (0.55-4.78); TOTAL 25(OH) VITAMIN D 30.1 NG/ML (20.0-100.0)
[2023-02-03 16:57] LABS: FREE T4 0.94 NG/DL (0.89-1.76)
== END ==
LOC: M SFHCADAM 15:30
PROVIDERS: ATTEND Physician Assistant
DX: R60.0 Localized edema (principal); E78.2 Mixed hyperlipidemia; I11.9 Hypertensive heart disease without heart failure; E55.9 Vitamin D deficiency, unspecified; Z79.899 Other long term (current) drug therapy

== ENCOUNTER → 2023-02-28 | Outpatient (REF) | payer OTHER, MEDICAID ==
[~2023-02-28] MED LIST changes: +ALBU8.5H INH; +AZIT-12 PO; +FLUT50SP17; +FLUT50SP17 NARES; -FLUTISP; -FLUTISP NARES
[2023-02-28 20:03] LABS: BLOOD UREA NITROGEN 19 MG/DL (9-23); CALCIUM LEVEL 8.9 MG/DL (8.3-10.6); CARBON DIOXIDE LEVEL 31 MMOL/L (20-31); CHLORIDE LEVEL 107 MMOL/L (98-107); CREATININE FOR GFR 0.84 MG/DL (0.55-1.30); GLOMERULAR FILTRATION RATE > 60.0 (>45); GLUCOSE, FASTING 77 MG/DL (74-106); POTASSIUM SERUM 4.4 MMOL/L (3.5-5.1); SODIUM LEVEL 140 MMOL/L (136-145)
== END ==
LOC: M SFHCADAM 15:22
PROVIDERS: ATTEND Physician Assistant
DX: R60.0 Localized edema (principal)

== ENCOUNTER 2023-03-04 21:27 | Emergency (ER) | payer OTHER, MEDICAID ==
[~2023-03-04] VITALS: Ht 160 cm; Wt 85.0 kg
[~2023-03-04 21:27] MED LIST changes: -ALBU8.5H INH; -AZIT-12 PO
[2023-03-04 23:33] LABS: BASO # 0.1 10^3/uL (0.0-0.2); BASO % 0.8 % (0.0-1.0); EOS # 0.2 10^3/uL (0.0-0.5); EOS % 2.4 % (0.0-3.0); HEMATOCRIT 42.6 % (36.0-47.0); HEMOGLOBIN 13.2 g/dl (12.0-15.5); LYMPH # 2.3 10^3/uL (1.5-5.0); LYMPH % 27.9 % (24.0-44.0); MEAN CORPUSCULAR HEMOGLOBIN 28.9 pg (27.0-33.0); MEAN CORPUSCULAR VOLUME 93.2 fl (80.0-96.0); MONO # 0.7 10^3/uL (0.0-0.8); MONO % 8.1 % (2.0-8.0); NEUTROPHILS % 60.4 % (36.0-66.0); PLATELET COUNT, AUTOMATED 243 10^3/uL (150-450); RED BLOOD COUNT 4.57 10^6/uL (4.00-5.40); WHITE BLOOD COUNT 8.3 10^3/uL (4.0-10.0)
[2023-03-04 23:52] LABS: BLOOD UREA NITROGEN 28 MG/DL (9-23); CALCIUM LEVEL 8.7 MG/DL (8.3-10.6); CARBON DIOXIDE LEVEL 26 MMOL/L (20-31); CHLORIDE LEVEL 109 MMOL/L (98-107); CREATININE FOR GFR 0.93 MG/DL (0.55-1.30); GLOMERULAR FILTRATION RATE > 60.0 (>45); GLUCOSE, FASTING 106 MG/DL (74-106); POTASSIUM SERUM 4.3 MMOL/L (3.5-5.1); SODIUM LEVEL 141 MMOL/L (136-145)
[2023-03-05] MEDS ORDERED: AZIT-12 PO (00:05)
[2023-03-05] MEDS ORDERED: AZITHROMYCIN 250MG TABLET PO ONE (00:05)
[2023-03-05] MEDS ORDERED: ALBU8.5H INH (00:05)
[2023-03-05 00:11] VITALS: BP 140/80
== END 2023-03-05 00:13 | disposition home or self-care (01) ==
LOC: M ED 21:27
DX: J06.9 Acute upper respiratory infection, unspecified (principal); S70.312A Abrasion, left thigh, initial encounter; W55.03XA Scratched by cat, initial encounter; Y93.89 Activity, other specified; Y99.8 Other external cause status; J45.909 Unspecified asthma, uncomplicated; Z87.891 Personal history of nicotine dependence; Z91.010 Allergy to peanuts; Z79.899 Other long term (current) drug therapy; Z79.51 Long term (current) use of inhaled steroids; Z79.82 Long term (current) use of aspirin

== ENCOUNTER 2023-07-09 10:43 | Emergency (ER) | payer MEDICAID, OTHER ==
[~2023-07-09] VITALS: Ht 160 cm; Wt 86.2 kg
[~2023-07-09 10:43] MED LIST changes: +ALBU8.5H INH; +AZIT-12 PO
[2023-07-09] MEDS ORDERED: SPIR-10 (11:15)
[2023-07-09] MEDS ORDERED: CHLO125TA (11:15)
[2023-07-09 13:00] LABS: BASO # 0.1 10^3/uL (0.0-0.2); BASO % 0.6 % (0.0-1.0); EOS # 0.2 10^3/uL (0.0-0.5); EOS % 2.3 % (0.0-3.0); HEMATOCRIT 44.7 % (36.0-47.0); HEMOGLOBIN 14.4 g/dl (12.0-15.5); LYMPH # 2.1 10^3/uL (1.5-5.0); LYMPH % 22.4 % (24.0-44.0); MEAN CORPUSCULAR HEMOGLOBIN 29.9 pg (27.0-33.0); MEAN CORPUSCULAR HGB CONC 32.2 g/dl (32.0-36.5); MEAN CORPUSCULAR VOLUME 92.7 fl (80.0-96.0); MONO # 0.6 10^3/uL (0.0-0.8); MONO % 6.6 % (2.0-8.0); NEUTROPHILS # 6.4 10^3/uL (1.5-8.5); NEUTROPHILS % 67.8 % (36.0-66.0); PLATELET COUNT, AUTOMATED 274 10^3/uL (150-450); RED BLOOD COUNT 4.82 10^6/uL (4.00-5.40); WHITE BLOOD COUNT 9.5 10^3/uL (4.0-10.0)
[2023-07-09 13:08] LABS: ERYTHROCYTE SEDIMENTATION RATE 30 mm/hr (0-30)
[2023-07-09 13:30] LABS: C REACTIVE PROTEIN QUANTITATIV < 0.40 MG/DL (<1.0)
[2023-07-09 13:32] LABS: BLOOD UREA NITROGEN 25 MG/DL (9-23); CALCIUM LEVEL 8.8 MG/DL (8.3-10.6); CARBON DIOXIDE LEVEL 28 MMOL/L (20-31); CHLORIDE LEVEL 103 MMOL/L (98-107); CREATININE FOR GFR 0.91 MG/DL (0.55-1.30); GLOMERULAR FILTRATION RATE > 60.0 (>45); GLUCOSE, FASTING 91 MG/DL (74-106); POTASSIUM SERUM 4.8 MMOL/L (3.5-5.1); SODIUM LEVEL 138 MMOL/L (136-145)
[2023-07-09 14:37] VITALS: BP 131/67; TEMP 98.6; O2SAT 99
== END 2023-07-09 14:44 | disposition home or self-care (01) ==
LOC: M ED 10:43
DX: R22.41 Localized swelling, mass and lump, right lower limb (principal); I10 Essential (primary) hypertension; I25.2 Old myocardial infarction; M54.9 Dorsalgia, unspecified; J44.9 Chronic obstructive pulmonary disease, unspecified; Z91.010 Allergy to peanuts; Z79.51 Long term (current) use of inhaled steroids; Z79.82 Long term (current) use of aspirin; Z79.899 Other long term (current) drug therapy

== ENCOUNTER 2024-04-13 11:39 | Emergency (ER) | payer OTHER, MEDICAID ==
[~2024-04-13] VITALS: Ht 160 cm; Wt 95.4 kg
[~2024-04-13 11:39] MED LIST changes: +CHLO125TA; -FLUT50SP17; -FLUT50SP17 NARES; +FLUTISP; +FLUTISP NARES; +SPIR-10
[2024-04-13 11:40] VITALS: BP 143/88; TEMP 97.8; O2SAT 100
[2024-04-13 18:07] LABS: BASO # 0.1 10^3/uL (0.0-0.2); BASO % 0.9 % (0.0-1.0); EOS # 0.1 10^3/uL (0.0-0.5); EOS % 1.1 % (0.0-3.0); HEMATOCRIT 39.6 % (36.0-47.0); LYMPH % 25.4 % (24.0-44.0); MEAN CORPUSCULAR HEMOGLOBIN 30.4 pg (27.0-33.0); MEAN CORPUSCULAR HGB CONC 32.8 g/dl (32.0-36.5); MEAN CORPUSCULAR VOLUME 92.5 fl (80.0-96.0); MONO # 0.6 10^3/uL (0.0-0.8); NEUTROPHILS # 5.2 10^3/uL (1.5-8.5); NEUTROPHILS % 64.3 % (36.0-66.0); PLATELET COUNT, AUTOMATED 280 10^3/uL (150-450); RED BLOOD COUNT 4.28 10^6/uL (4.00-5.40)
[2024-04-13 18:12] LABS: ERYTHROCYTE SEDIMENTATION RATE 34 mm/hr (0-30)
[2024-04-13 18:15] LABS: RSV AMPLIFICATION NEGATIVE (NEGATIVE)
[2024-04-13 18:35] LABS: C REACTIVE PROTEIN QUANTITATIV < 0.40 MG/DL (<1.0)
[2024-04-13 18:37] LABS: ALBUMIN 3.6 G/DL (3.2-5.2); ALKALINE PHOSPHATASE 104 U/L (46-116); ALT/SGPT 38 U/L (7.0-40); AST/SGOT 53 U/L (<34); BILIRUBIN,DIRECT < 0.1 MG/DL (<0.4); BILIRUBIN,TOTAL 0.4 MG/DL (0.3-1.2); BLOOD UREA NITROGEN 21 MG/DL (9-23); CALCIUM LEVEL 8.5 MG/DL (8.3-10.6); CARBON DIOXIDE LEVEL 28 MMOL/L (20-31); CHLORIDE LEVEL 104 MMOL/L (98-107); CREATININE FOR GFR 0.82 MG/DL (0.55-1.30); GLOMERULAR FILTRATION RATE > 60.0 (>39); GLUCOSE, FASTING 96 MG/DL (74-106); POTASSIUM SERUM 5.6 MMOL/L (3.5-5.1); SODIUM LEVEL 138 MMOL/L (136-145); TOTAL PROTEIN 7.3 G/DL (5.7-8.2)
[2024-04-13] MEDS ORDERED: CEPH500C PO (19:42)
[2024-04-13] MEDS: CEPHALEXIN 500 MG CAP PO ONE (19:59)
== END 2024-04-13 20:04 | disposition home or self-care (01) ==
LOC: M ED 11:39
DX: L03.116 Cellulitis of left lower limb (principal); M71.22 Synovial cyst of popliteal space [Baker], left knee; I25.2 Old myocardial infarction; K57.92 Diverticulitis of intestine, part unspecified, without perforation or abscess without bleeding; Z86.73 Personal history of transient ischemic attack (TIA), and cerebral infarction without residual deficits; J45.909 Unspecified asthma, uncomplicated; J44.9 Chronic obstructive pulmonary disease, unspecified; Z87.891 Personal history of nicotine dependence; Z79.82 Long term (current) use of aspirin; Z79.899 Other long term (current) drug therapy; Z91.010 Allergy to peanuts

== ENCOUNTER 2024-04-24 19:28 | Emergency (ER) | payer OTHER, MEDICAID ==
[~2024-04-24] VITALS: Ht 160 cm; Wt 94.8 kg
[2024-04-25] MEDS ORDERED: CLEO300C2 PO (04:05)
[2024-04-25] MEDS: CLINDAMYCIN 150MG CAPSULE PO ONE (04:12)
[2024-04-25 04:15] VITALS: BP 121/59; TEMP 97.1; O2SAT 98
== END 2024-04-25 04:17 | disposition home or self-care (01) ==
LOC: M ED 19:28
DX: L03.116 Cellulitis of left lower limb (principal); I10 Essential (primary) hypertension; J45.909 Unspecified asthma, uncomplicated; Z79.82 Long term (current) use of aspirin; Z79.899 Other long term (current) drug therapy; Z91.010 Allergy to peanuts

== ENCOUNTER → 2024-05-08 | Outpatient (REF) | payer OTHER, MEDICAID ==
[~2024-05-08] MED LIST changes: +CLEO300C2 PO; +NITR100C3 PO; -NITR1CAP11 PO
[2024-05-08 18:32] LABS: HEMATOCRIT 42.9 % (36.0-47.0); HEMOGLOBIN 13.8 g/dl (12.0-15.5); MEAN CORPUSCULAR HEMOGLOBIN 30.5 pg (27.0-33.0); MEAN CORPUSCULAR HGB CONC 32.2 g/dl (32.0-36.5); MEAN CORPUSCULAR VOLUME 94.9 fl (80.0-96.0); PLATELET COUNT, AUTOMATED 236 10^3/uL (150-450); RED BLOOD COUNT 4.52 10^6/uL (4.00-5.40); WHITE BLOOD COUNT 6.6 10^3/uL (4.0-10.0)
[2024-05-08 18:39] LABS: ALBUMIN 3.6 G/DL (3.2-5.2); ALKALINE PHOSPHATASE 103 U/L (46-116); ALT/SGPT 20 U/L (7.0-40); AST/SGOT 10 U/L (<34); BILIRUBIN,TOTAL 0.4 MG/DL (0.3-1.2); BLOOD UREA NITROGEN 22 MG/DL (9-23); CALCIUM LEVEL 9.2 MG/DL (8.3-10.6); CARBON DIOXIDE LEVEL 31 MMOL/L (20-31); CHLORIDE LEVEL 106 MMOL/L (98-107); CHOLESTEROL LEVEL 174 MG/DL (<200); CHOLESTEROL RISK RATIO 2.81 (<5); CREATININE FOR GFR 0.91 MG/DL (0.55-1.30); GLOMERULAR FILTRATION RATE > 60.0 (>39); GLUCOSE, FASTING 80 MG/DL (74-106); HDL CHOLESTEROL 61.9 MG/DL (>40); LDL CHOLESTEROL 93.5 MG/DL (<100); NON-HDL-C 112.1 MG/DL; SODIUM LEVEL 141 MMOL/L (136-145); TRIGLYCERIDES LEVEL 93 MG/DL (<150)
[2024-05-08 18:40] LABS: FREE T4 0.93 NG/DL (0.89-1.76); THYROID STIMULATING HORMONE 1.206 uIU/ML (0.55-4.78)
[2024-05-08 19:05] LABS: HEMOGLOBIN A1c 5.5 % (4.0-6.0)
== END ==
LOC: M SFHCADAM 13:47
PROVIDERS: ATTEND Family Medicine
DX: E78.2 Mixed hyperlipidemia (principal); I11.9 Hypertensive heart disease without heart failure; Z13.1 Encounter for screening for diabetes mellitus; I63.50 Cerebral infarction due to unspecified occlusion or stenosis of unspecified cerebral artery

== ENCOUNTER 2024-06-19 19:28 | Emergency (ER) | payer OTHER, MEDICAID ==
[~2024-06-19] VITALS: Ht 160 cm; Wt 97.6 kg
[2024-06-19] MEDS ORDERED: DEBR6.5S4 OTIC (20:45)
[2024-06-19] MEDS ORDERED: AMOX500C PO (20:45)
[2024-06-19] MEDS: CARBAMIDE PEROXIDE 6.5% OTIC SOLN 15ML AD ONE (20:54)
[2024-06-19] MEDS: AMOXICILLIN 500 MG CAP PO ONE (20:54)
[2024-06-19] MEDS: ACETAMINOPH W/CODEINE #3 TAB UD PO ONE (20:55)
[2024-06-19 21:02] VITALS: BP 124/93; TEMP 97; O2SAT 97
== END 2024-06-19 21:04 | disposition home or self-care (01) ==
LOC: M ED 19:28
DX: K08.89 Other specified disorders of teeth and supporting structures (principal); H61.23 Impacted cerumen, bilateral; J45.909 Unspecified asthma, uncomplicated; J44.9 Chronic obstructive pulmonary disease, unspecified; I10 Essential (primary) hypertension; F41.9 Anxiety disorder, unspecified; Z91.010 Allergy to peanuts; Z79.51 Long term (current) use of inhaled steroids; Z79.1 Long term (current) use of non-steroidal anti-inflammatories (NSAID); Z79.2 Long term (current) use of antibiotics; Z79.810 Long term (current) use of selective estrogen receptor modulators (SERMs); Z79.899 Other long term (current) drug therapy

== ENCOUNTER 2024-06-30 11:25 | Emergency (ER) | payer OTHER, MEDICAID ==
[~2024-06-30] VITALS: Ht 160 cm; Wt 97.0 kg
[~2024-06-30 11:25] MED LIST changes: +AMOX500C PO; +DEBR6.5S4 OTIC
[2024-06-30] MEDS ORDERED: HYDR-3713 PO (14:24)
[2024-06-30] MEDS ORDERED: PERI12LIQ PO (14:24)
[2024-06-30] MEDS: KETOROLAC 30 MG/ML 1ML VIAL IM ONE (14:42)
[2024-06-30 14:45] VITALS: BP 164/88; TEMP 98.4; O2SAT 100
== END 2024-06-30 14:53 | disposition home or self-care (01) ==
LOC: M ED 11:25
DX: G89.18 Other acute postprocedural pain (principal); I25.2 Old myocardial infarction; I10 Essential (primary) hypertension; J44.9 Chronic obstructive pulmonary disease, unspecified; Z91.010 Allergy to peanuts; Z79.1 Long term (current) use of non-steroidal anti-inflammatories (NSAID); Z79.51 Long term (current) use of inhaled steroids; Z79.2 Long term (current) use of antibiotics; Z79.810 Long term (current) use of selective estrogen receptor modulators (SERMs); Z79.899 Other long term (current) drug therapy
CPT/HCPCS: 96372; 99283; J1885

== ENCOUNTER 2024-08-23 12:52 | Emergency (ER) | payer OTHER, MEDICAID ==
[~2024-08-23] VITALS: Ht 160 cm; Wt 94.5 kg
[~2024-08-23 12:52] MED LIST changes: +PERI12LIQ PO
[2024-08-23 18:07] LABS: BASO # 0.1 10^3/uL (0.0-0.2); BASO % 0.9 % (0.0-1.0); EOS # 0.5 10^3/uL (0.0-0.5); EOS % 6.7 % (0.0-3.0); HEMATOCRIT 38.6 % (36.0-47.0); HEMOGLOBIN 12.1 g/dl (12.0-15.5); LYMPH # 1.8 10^3/uL (1.5-5.0); LYMPH % 25.9 % (24.0-44.0); MEAN CORPUSCULAR HEMOGLOBIN 29.8 pg (27.0-33.0); MEAN CORPUSCULAR HGB CONC 31.3 g/dl (32.0-36.5); MEAN CORPUSCULAR VOLUME 95.1 fl (80.0-96.0); MONO # 0.5 10^3/uL (0.0-0.8); MONO % 7.4 % (2.0-8.0); NEUTROPHILS # 4.1 10^3/uL (1.5-8.5); NEUTROPHILS % 58.7 % (36.0-66.0); PLATELET COUNT, AUTOMATED 261 10^3/uL (150-450); RED BLOOD COUNT 4.06 10^6/uL (4.00-5.40)
[2024-08-23 18:35] LABS: BLOOD UREA NITROGEN 16 MG/DL (9-23); CALCIUM LEVEL 8.6 MG/DL (8.3-10.6); CARBON DIOXIDE LEVEL 30 MMOL/L (20-31); CHLORIDE LEVEL 109 MMOL/L (98-107); CREATININE FOR GFR 0.92 MG/DL (0.55-1.30); GLOMERULAR FILTRATION RATE > 60.0 (>39); GLUCOSE, FASTING 94 MG/DL (74-106); POTASSIUM SERUM 4.2 MMOL/L (3.5-5.1); SODIUM LEVEL 141 MMOL/L (136-145)
[2024-08-23] MEDS ORDERED: CEPH500C PO (19:24)
[2024-08-23] MEDS: CEPHALEXIN 500 MG CAP PO ONE (19:26)
[2024-08-23 19:34] VITALS: BP 146/82; TEMP 96.6; O2SAT 97
== END 2024-08-23 19:33 | disposition home or self-care (01) ==
LOC: M ED 12:52
DX: S01.81XA Laceration without foreign body of other part of head, initial encounter (principal); Y92.9 Unspecified place or not applicable; Y93.9 Activity, unspecified; Y99.9 Unspecified external cause status; I10 Essential (primary) hypertension; D64.9 Anemia, unspecified; J45.909 Unspecified asthma, uncomplicated; J44.9 Chronic obstructive pulmonary disease, unspecified; Z91.010 Allergy to peanuts; Z79.1 Long term (current) use of non-steroidal anti-inflammatories (NSAID); Z79.51 Long term (current) use of inhaled steroids; Z79.2 Long term (current) use of antibiotics; Z79.899 Other long term (current) drug therapy; Z79.810 Long term (current) use of selective estrogen receptor modulators (SERMs)

== ENCOUNTER 2024-12-23 13:26 | Emergency (ER) | payer OTHER, MEDICAID ==
[~2024-12-23] VITALS: Ht 160 cm; Wt 97.9 kg
[~2024-12-23 13:26] MED LIST changes: -CYCL5TAB PO; +CYCL5TAB4 PO
[2024-12-23 15:08] LABS: BASO % 0.4 % (0.0-1.0); EOS # 0.2 10^3/uL (0.0-0.5); EOS % 1.9 % (0.0-3.0); HEMATOCRIT 39.8 % (36.0-47.0); HEMOGLOBIN 12.6 g/dl (12.0-15.5); LYMPH # 1.9 10^3/uL (1.5-5.0); LYMPH % 20.5 % (24.0-44.0); MEAN CORPUSCULAR HEMOGLOBIN 29.4 pg (27.0-33.0); MEAN CORPUSCULAR HGB CONC 31.7 g/dl (32.0-36.5); MONO # 0.7 10^3/uL (0.0-0.8); MONO % 7.7 % (2.0-8.0); NEUTROPHILS # 6.3 10^3/uL (1.5-8.5); NEUTROPHILS % 69.2 % (36.0-66.0); PLATELET COUNT, AUTOMATED 233 10^3/uL (150-450); RED BLOOD COUNT 4.28 10^6/uL (4.00-5.40); WHITE BLOOD COUNT 9.1 10^3/uL (4.0-10.0)
[2024-12-23 15:34] LABS: BLOOD UREA NITROGEN 28 MG/DL (9-23); CALCIUM LEVEL 8.9 MG/DL (8.3-10.6); CARBON DIOXIDE LEVEL 29 MMOL/L (20-31); CHLORIDE LEVEL 106 MMOL/L (98-107); GLOMERULAR FILTRATION RATE > 60.0 (>39); GLUCOSE, FASTING 88 MG/DL (74-106); POTASSIUM SERUM 4.7 MMOL/L (3.5-5.1); SODIUM LEVEL 143 MMOL/L (136-145)
[2024-12-23] MEDS ORDERED: TRIA1CR80 TOP (15:54)
[2024-12-23 16:06] VITALS: BP 166/74; TEMP 97.6; O2SAT 98
[2024-12-23] MEDS: BACITRACIN OINTMENT 30GM TUBE TOP ONE (16:06)
== END 2024-12-23 16:11 | disposition home or self-care (01) ==
LOC: M ED 13:26
DX: I87.2 Venous insufficiency (chronic) (peripheral) (principal); S06.0X0A Concussion without loss of consciousness, initial encounter; S80.221A Blister (nonthermal), right knee, initial encounter; Y92.9 Unspecified place or not applicable; Y93.9 Activity, unspecified; Y99.9 Unspecified external cause status; I25.119 Atherosclerotic heart disease of native coronary artery with unspecified angina pectoris; I25.2 Old myocardial infarction; I10 Essential (primary) hypertension; J45.909 Unspecified asthma, uncomplicated; D64.9 Anemia, unspecified; Z87.891 Personal history of nicotine dependence; Z91.010 Allergy to peanuts; Z79.1 Long term (current) use of non-steroidal anti-inflammatories (NSAID); Z79.51 Long term (current) use of inhaled steroids; Z79.810 Long term (current) use of selective estrogen receptor modulators (SERMs); Z79.899 Other long term (current) drug therapy

== ENCOUNTER 2025-06-13 14:14 | Emergency (ER) | payer OTHER, MEDICAID ==
[~2025-06-13] VITALS: Ht 160 cm; Wt 95.4 kg
[~2025-06-13 14:14] MED LIST changes: +LIDO1ADH93 TD; +LIDO1ADH93 TOP; -LIDO5DIS41 TD; -LIDO5DIS41 TOP; +TRIA1CR80 TOP
[2025-06-13 19:12] VITALS: BP 159/79; TEMP 97.4; O2SAT 97
[2025-06-13] MEDS ORDERED: CEPH500C PO (19:47)
[2025-06-13] MEDS: CEPHALEXIN 500 MG CAP PO ONE (19:59)
[2025-06-13] MEDS: MUPIROCIN 2% OINT 22 GM TUBE TOP ONE (20:00)
== END 2025-06-13 20:07 | disposition home or self-care (01) ==
LOC: M ED 14:14
DX: L03.012 Cellulitis of left finger (principal); Z91.010 Allergy to peanuts; Z79.1 Long term (current) use of non-steroidal anti-inflammatories (NSAID); Z79.51 Long term (current) use of inhaled steroids; Z79.2 Long term (current) use of antibiotics; Z79.899 Other long term (current) drug therapy; Z79.810 Long term (current) use of selective estrogen receptor modulators (SERMs)

== ENCOUNTER 2025-06-17 20:40 | Emergency (ER) | payer MEDICARE, MEDICAID ==
[~2025-06-17] VITALS: Ht 160 cm; Wt 96.7 kg
[2025-06-17 21:43] LABS: BASO # 0.0 10^3/uL (0.0-0.2); BASO % 0.5 % (0.0-1.0); EOS # 0.2 10^3/uL (0.0-0.5); EOS % 2.1 % (0.0-3.0); LYMPH # 1.8 10^3/uL (1.5-5.0); LYMPH % 21.1 % (24.0-44.0); MONO # 0.5 10^3/uL (0.0-0.8); MONO % 6.2 % (2.0-8.0); NEUTROPHILS # 6.0 10^3/uL (1.5-8.5); NEUTROPHILS % 69.7 % (36.0-66.0); PLATELET COUNT, AUTOMATED 243 10^3/uL (150-450)
[2025-06-17 22:09] LABS: ALT/SGPT 33.0 U/L (7.0-40); AST/SGOT 29.0 U/L (<34); CALCIUM LEVEL 9.0 MG/DL (8.3-10.6); CARBON DIOXIDE LEVEL 26.0 MMOL/L (20-31); CHLORIDE LEVEL 104.0 MMOL/L (98-107); CREATININE FOR GFR 0.97 MG/DL (0.55-1.30); GLOMERULAR FILTRATION RATE 62.5 (>39); POTASSIUM SERUM 3.9 MMOL/L (3.5-5.1); SODIUM LEVEL 143.0 MMOL/L (136-145)
[2025-06-18] MEDS: LIDOCAINE/PRILOCAINE CREAM 5 GM TUBE TOP ONE (00:03)
[2025-06-18] MEDS ORDERED: AMOX875T2 PO (00:26)
[2025-06-18 01:08] VITALS: BP 142/71; TEMP 97.8; O2SAT 98
== END 2025-06-18 01:10 | disposition home or self-care (01) ==
LOC: M ED 20:40
DX: L03.011 Cellulitis of right finger (principal); I25.2 Old myocardial infarction; J44.9 Chronic obstructive pulmonary disease, unspecified; Z91.010 Allergy to peanuts; Z79.1 Long term (current) use of non-steroidal anti-inflammatories (NSAID); Z79.51 Long term (current) use of inhaled steroids; Z79.2 Long term (current) use of antibiotics; Z79.899 Other long term (current) drug therapy; Z79.810 Long term (current) use of selective estrogen receptor modulators (SERMs)